=== PATIENT | female | born 1945 | race Caucasian/White ===

== ENCOUNTER → 2017-06-27 | Outpatient (CLI) | payer MEDICARE, OTHER ==
[~2017-06-27] VITALS: Ht 165.1 cm; Wt 68.5 kg
[~2017-06-27] MED LIST: AMIT150T3 PO; CATHETER FLUSH 10 ML SYR IV PRN; HCTZ12.5T PO; MTP50T PO; OLME40TA14 PO; PANT40TA PO; REGADENOSON 0.4 MG/5 ML SYR (LEXISCAN) IV ONE; SCR1T1 PO; SIMV20TA3 PO; aciphex PO; aspirin; crestor; diovan; lexapro; prednisone
[2017-06-27 09:13] VITALS: BP 142/69
[2017-06-27 09:17] VITALS: BP 134/68
--- NOTE | 2017-06-27 22:19 | STRESS TEST ---
DATE OF SERVICE: 06/27/2017 LEXISCAN MYOVIEW STRESS TEST REPORT REFERRING PHYSICIAN: Jonathan Clarke DO Baseline heart rate is 66. Baseline blood pressure 141/79. Baseline EKG is sinus rhythm with nonspecific changes. In summary, the patient was injected with 10.7 mCi of technetium-99 Myoview and the resting images were obtained. Then, the patient received 0.4 mg of Lexiscan followed by 31.9 mCi of technetium-99 Myoview. Throughout the test, there were no EKG changes. The resting and stress images were reviewed and compared in the short axis, horizontal long axis, and vertical long axis views. Review of the images showed mild decreased uptake at the mid to apical inferior wall and inferolateral wall with mild reversibility. SSS is 6. SDS 6. TID value 1.07. On the gated images, the left ventricle appeared to be in normal size with normal contractility. Calculated ejection fraction 78%. CONCLUSION: 1. The patient tolerated Lexiscan well. 2. Mild ischemia involving the mid to apical inferior wall and inferolateral wall. 3. Normal left ventricular size with normal contractility. Calculated ejection fraction of 78%. Job ID: [id number] DocumentID: [id number] Dictated Date: 06/27/2017 15:35:25 Dance Hall Host/Hostess Date: 06/27/2017 22:19:13 Dictated By: ANA MARIA LI MD
== END ==
LOC: CARD 07:58
PROVIDERS: ATTEND Internal Medicine Cardiovascular Disease
DX: I25.10 Atherosclerotic heart disease of native coronary artery without angina pectoris (principal); I10 Essential (primary) hypertension; I44.4 Left anterior fascicular block; E78.2 Mixed hyperlipidemia
CPT/HCPCS: 78452; 93017

== ENCOUNTER 2017-09-04 00:04 | Emergency (ER) | payer MEDICARE, OTHER ==
[~2017-09-04] VITALS: Ht 157.5 cm; Wt 67.6 kg
[~2017-09-04 00:04] MED LIST changes: -CATHETER FLUSH 10 ML SYR IV PRN; -REGADENOSON 0.4 MG/5 ML SYR (LEXISCAN) IV ONE
[2017-09-04] MEDS ORDERED: fentaNYL INJECTION 100 MCG/2 ML AMP IVP STA ×2 (00:27→02:09)
[2017-09-04] MEDS ORDERED: NS IV 500 ML 500 ML IV ONE (00:27)
[2017-09-04] MEDS ORDERED: fentaNYL INJECTION 100 MCG/2 ML AMP ONE (00:28)
[2017-09-04] MEDS ORDERED: NS IV 500 ML 500 ML ONE (00:28)
[2017-09-04] MEDS ORDERED: TETANUS,DIPTH,PERTUSS P/F (BOOSTRIX) 0.5 ML VIAL IM ONE (00:33)
--- NOTE | 2017-09-04 00:35 | ED Fall/Injury ---
General Chief Complaint: Trauma-Non Activation Stated Complaint: BACK & SIDE PAIN-FALL Source: patient Exam Limitations: no limitations History of Present Illness Date Seen by Provider: Sep 04, 2017 Time Seen by Provider: 00:18 Initial Comments Here with report of fall at home tonight. Apparently fell out of bed and hit her nightstand on her back on the right side. She noted a large hematoma. Occurred approximately an hour ago. Her son-in-law is able to get her up but she is having pain on the right side of her back and she was concerned about that. Denies hitting her head or loss of consciousness. Denies other injury except for abrasion to the right forearm. Tetanus is not up-to-date Occurred: this morning Severity: moderate Injuries/Pain Location: upper extremity, back Context: lost balance Loss of Consciousness: no loss of consciousness Associated Symptoms (Fall): No Abdominal Pain, No Chest Pain, No Confusion, No Headache, No Nausea/Vomiting, No Neck Pain, No Shortness of Air; Other (pain worse with deep breathing) Allergies and Home Medications Allergies Coded Allergies: codeine (Verified Allergy, Unknown, 09/04/17) Home Medications Hydrochlorothiazide 12.5 Mg Cap, 12.5 MG PO DAILY, (Reported) Metoprolol Tartrate 50 Mg Tablet, 1 EACH PO DAILY, (Reported) Olmesartan Medoxomil 40 Mg Tablet, 40 MG PO DAILY, (Reported) Pantoprazole Sodium 40 Mg Tablet.dr, 40 MG PO DAILY, (Reported) Simvastatin 20 Mg Tablet, 20 MG PO HS, (Reported) Sucralfate 1 Gm Tab, 1 GM PO QID, (Reported) [aciphex] , 20 MG PO DAILY, (Reported) Patient Home Medication List Home Medication List Reviewed: Yes Review of Systems Constitutional: see HPI; No chills, No fever Eyes: No Symptoms Reported Ears, Nose, Mouth, Throat: no symptoms reported Respiratory: see HPI; No cough Cardiovascular: see HPI; No palpitations, No syncope Gastrointestinal: No abdominal pain, No nausea, No vomiting Genitourinary: no symptoms reported Musculoskeletal: see HPI, back pain, muscle pain, muscle stiffness Skin: change in color, lesions All Other Systems Reviewed Negative Unless Noted: Yes Past Gzdfmkc-Gwuofi-Loulvz Hx Past Med/Social Hx: Reviewed Nursing Past Med/Soc Hx Patient Social History Alcohol Use: Denies Use Recreational Drug Use: No Recent Foreign Travel: No Contact w/Someone Who Travel: No Recent Hopitalizations: Yes (BACK SX) Physical Abuse: No Sexual Abuse: No Immunizations Up To Date Date of Influenza Vaccine: Nov 27, 2011 Past Medical History Surgeries: Yes (CARPAL TUNNEL, BACK) Hysterectomy, Tonsillectomy Respiratory: No Cardiac: Yes Hypertension Neurological: Yes Reproductive Disorders: No Gastrointestinal: Yes (ULCERS) Gastroesophageal Reflux Musculoskeletal: No Endocrine: No Psychosocial: No Nursing Suicide Risk Score: 0 Blood Disorders: No Family Medical History Reviewed Nursing Family Hx No Pertinent Family Hx Physical Exam Vital Signs Vital Signs - First Documented Capillary Refill : Height, Weight, BMI Height: 5', 5.00" Weight: 151lbs 0.0oz, [id number] Method:Stated ,25.1BMI General Appearance: WD/WN, no apparent distress HEENT: PERRL/EOMI, pharynx normal Neck: supple, normal inspection Cardiovascular: regular rate, rhythm, no murmur Respiratory: lungs clear, normal breath sounds Gastrointestinal: non tender, soft Back: no vertebral tenderness, other (10 x 20 cm area of hematoma to the right side of the low back at the rib margin to the hip and just lateral to the spine to the lateral aspect of the back.) Extremities: normal range of motion, pelvis stable, other (onset tenderness to palpation of the right forearm near area of abrasion with normal range of motion ) Neurologic/Psychiatric: alert, oriented x 3 Skin: warm/dry, ecchymosis (low back on the right side and right forearm) Fidencio Coma Score Best Eye Response: (4) Open Spontaneously Best Verbal Response: (5) Oriented Best Motor Response: (6) Obeys Commands Progress/Results/Core Measures Results/Orders Lab Results Laboratory Tests Test 09/04/17 00:30 Range/Units White Blood Count 5.4 4.3-11.0 10^3/uL Red Blood Count 3.91 L 4.35-5.85 10^6/uL Hemoglobin 11.8 11.5-16.0 G/DL Hematocrit 35 35-52 % Mean Corpuscular Volume 88 80-99 FL Mean Corpuscular Hemoglobin 30 25-34 PG Mean Corpuscular Hemoglobin Concent 34 32-36 G/DL Red Cell Distribution Width 12.9 10.0-14.5 % Platelet Count 170 130-400 10^3/uL Mean Platelet Volume 10.0 7.4-10.4 FL Neutrophils (%) (Auto) 60 42-75 % Lymphocytes (%) (Auto) 27 12-44 % Monocytes (%) (Auto) 11 0-12 % Eosinophils (%) (Auto) 2 0-10 % Basophils (%) (Auto) 0 0-10 % Neutrophils # (Auto) 3.3 1.8-7.8 X 10^3 Lymphocytes # (Auto) 1.5 1.0-4.0 X 10^3 Monocytes # (Auto) 0.6 0.0-1.0 X 10^3 Eosinophils # (Auto) 0.1 0.0-0.3 10^3/uL Basophils # (Auto) 0.0 0.0-0.1 10^3/uL Sodium Level 141 135-145 MMOL/L Potassium Level 3.6 3.6-5.0 MMOL/L Chloride Level 105 98-107 MMOL/L Carbon Dioxide Level 25 21-32 MMOL/L Anion Gap 11 5-14 MMOL/L Blood Urea Nitrogen 22 H 7-18 MG/DL Creatinine 1.01 0.60-1.30 MG/DL Estimat Glomerular Filtration Rate 54 BUN/Creatinine Ratio 22 Glucose Level 114 H 70-105 MG/DL Calcium Level 9.5 8.5-10.1 MG/DL Total Bilirubin 1.1 H 0.1-1.0 MG/DL Aspartate Amino Transf (AST/SGOT) 23 5-34 U/L Alanine Aminotransferase (ALT/SGPT) 12 0-55 U/L Alkaline Phosphatase 60 40-136 U/L Total Protein 7.4 6.4-8.2 GM/DL Albumin 4.5 3.2-4.5 GM/DL My Orders Orders - GUANACO KESSLER MD Cbc With Automated Diff (09/04/17 00:27) Comprehensive Metabolic Panel (09/04/17 00:27) Saline Lock/Iv-Start (09/04/17:27) Ns Iv 500 Ml (Sodium Chloride 0.9%) (09/04/17 00:27) Fentanyl Injection (Sublimaze Injection (09/04/17 00:27) Fentanyl Injection (Sublimaze Injection (09/04/17 00:28) Ns Iv 500 Ml (Sodium Chloride 0.9%) (7/10/18 00:28) Dipht,Pertuss(Acell),Tet Adult (Boostrix (09/04/17 00:33) Ct Abdomen/Pelvis W (09/04/17 01:03) Iohexol Injection (Omnipaque 350 Mg/Ml 1 (09/04/17 01:45) Ns (Ivpb) (Sodium Chloride 0.9%) (09/04/17 01:45) Fentanyl Injection (Sublimaze Injection (09/04/17 02:09) Ketorolac Injection (Toradol Injection) (09/04/17 02:09) Ondansetron Injection (Zofran Injectio (09/04/17 02:15) Medications Given in ED Current Medications Medications Dose Ordered Sig/Piter Route Start Time Stop Time Status Last Admin Dose Admin Iohexol 100 ml ONCE ONCE IV 09/04/17 01:45 09/04/17 01:46 DC 09/04/17 01:55 100 ML Ondansetron HCl 4 mg ONCE ONCE IVP 09/04/17 02:15 09/04/17 02:16 DC 09/04/17 02:14 4 MG Sodium Chloride 250 ml ONCE ONCE IV 09/04/17 01:45 09/04/17 01:46 DC 09/04/17 01:55 80 ML Sodium Chloride 500 ml @ 0 mls/hr Q0M ONCE IV 09/04/17 00:27 09/04/17 00:29 DC 09/04/17 00:34 0 MLS/HR Vital Signs/I&O 09/04/17 09/04/17 00:22 00:22 Temp 97.4 97.6 Pulse 63 96 Resp 14 16 B/P (MAP) 155/82 (106) 155/82 (106) Pulse Ox 98 98 O2 Delivery Room Air Room Air Progress Progress Note : Progress Note Seen and evaluated. IV, labs, normal saline 500 mL bolus in anticipation of CT of the abdomen and pelvis secondary to concerns of traumatic injury especially in the area of the right kidney and low ribs as well as the right flank. Tetanus updated. Fentanyl 50 g IV for pain. Monitor patient. CT abdomen pelvis ordered. Patient required repeat dosing of fentanyl 50 g IV as well as Toradol 15 mg IV and Zofran 4 mg IV. Nondisplaced rib fractures noted as below. We did have respiratory therapy evaluate and teach for incentive spirometry. Discharged home with return precautions. Patient verbalize understanding instructions and agreement with plan. Diagnostic Imaging Diagonstic Imaging: CT Plain Films/CT/US/NM/MRI: abdomen, pelvis Comments Acute nondisplaced fractures of the tips of the right 10th and 11th ribs with overlying subcutaneous contusion. Scoliosis, degenerative and postoperative changes in the lumbar spine. No acute fracture or malalignment of the spine. Departure Impression Primary Impression: Multiple fractures of ribs, right side, initial encounter for closed fracture Additional Impressions: Contusion Qualified Codes: S20.221A - Contusion of right back wall of thorax, initial encounter Abrasion Disposition: HOME, SELF-CARE Condition: Stable Departure-Patient Inst. Decision time for Depature: 02:46 Referrals: FILEMON PERALTA DO (PCP/Family) Primary Care Physician KELLY ROMAN MD Patient Instructions: Contusion (DC), Rib Fracture (DC), Skin Abrasions (DC) Add. Discharge Instructions: All discharge instructions reviewed with patient and/or family. Voiced understanding. Follow-up with Dr. Peralta or Dr. Roman for recheck and further evaluation within one week. Return for worse pain, fever, vomiting, weakness, breathing problems or other concerns as needed. Use incentive spirometer several times per hour while awake for the next week or more to help prevent pneumonia. Take home medications as previously prescribed. You may add ibuprofen 400 mg every 6 -8 hours as needed for pain. You may take Tylenol/acetaminophen 1000 mg every 8 hours as needed for pain if you're not taking her prescribed pain medicine as they both have Tylenol in it. Do not exceed 3000 mg of Tylenol/acetaminophen in a 24-hour period. Copy Copies To 1: FILEMON PERALTA DO Copies To 2: KELLY ROMAN MD, TIMOTHY D MD Sep 04, 2017 00:35
[2017-09-04 00:39] LABS: BASOPHILS % (AUTO) 0 % (0-10); EOSINOPHILS # (AUTO) 0.1 10^3/uL (0.0-0.3); EOSINOPHILS % (AUTO) 2 % (0-10); HEMATOCRIT 35 % (35-52); HEMOGLOBIN 11.8 G/DL (11.5-16.0); LYMPHOCYTES # (AUTO) 1.5 X 10^3 (1.0-4.0); LYMPHOCYTES % (AUTO) 27 % (12-44); MEAN CORPUSCULAR HEMOGLOBIN 30 PG (25-34); MEAN CORPUSCULAR HGB CONC 34 G/DL (32-36); MEAN CORPUSCULAR VOLUME 88 FL (80-99); MONOCYTES # (AUTO) 0.6 X 10^3 (0.0-1.0); MONOCYTES % (AUTO) 11 % (0-12); NEUTROPHILS # (AUTO) 3.3 X 10^3 (1.8-7.8); NEUTROPHILS % (AUTO) 60 % (42-75); PLATELET COUNT 170 10^3/uL (130-400); RED BLOOD COUNT 3.91 10^6/uL (4.35-5.85); RED CELL DISTRIBUTION WIDTH 12.9 % (10.0-14.5); WHITE BLOOD COUNT 5.4 10^3/uL (4.3-11.0)
[2017-09-04 00:58] LABS: ALBUMIN 4.5 GM/DL (3.2-4.5); BILIRUBIN,TOTAL 1.1 MG/DL (0.1-1.0); CALCIUM 9.5 MG/DL (8.5-10.1); CREATININE SERUM 1.01 MG/DL (0.60-1.30); POTASSIUM 3.6 MMOL/L (3.6-5.0); TOTAL PROTEIN 7.4 GM/DL (6.4-8.2)
[2017-09-04] MEDS ORDERED: IOHEXOL 350 MG/ML 100 ML (OMNIPAQUE 350) VIAL IV ONE (01:45)
[2017-09-04] MEDS ORDERED: NS 250 ML (IVPB) BAG IV ONE (01:45)
[2017-09-04] MEDS ORDERED: KETOROLAC 30 MG/ML VIAL IVP STA (02:09)
[2017-09-04] MEDS ORDERED: ONDANSETRON 4 MG/2 ML (SDV) Z0FRAN IVP ONE (02:15)
[2017-09-04 03:00] VITALS: BP 155/82
--- NOTE | 2017-09-04 07:50 | Diagnostic Imaging Report ---
PROCEDURE: CT abdomen and pelvis with contrast. TECHNIQUE: Multiple contiguous axial images were obtained through the abdomen and pelvis after administration of intravenous contrast. INDICATION: Fall, right-sided pain. COMPARISON: 02/26/2016. FINDINGS: The lung bases were clear. Fractures posterolaterally of the right 10th, 11lth, and 12th ribs posterolaterally appeared acute. No basilar hemothorax or pneumothorax. The partially visualized left lower ribs intact. There is leftward convexity thoracolumbar scoliosis. Sagittal reconstruction views revealed no substantial stature loss. No evidence for hepatosplenic laceration. The low-density nodule in the liver anteriorly is decreased in size from the previous of 2015. It is 9 mm and was previously measuring 21 mm presumed reduction in cyst. The adrenals are negative. There is a small hiatal hernia. The pancreas intact. There is no hemoperitoneum. There is no free air. There is no mesenteric or bowel wall hematoma. No adenopathy or mass. Bony pelvis degenerated but nonacute. There are degenerative and postoperative changes to the scoliotic lumbar spine. IMPRESSION: Fractures of the right 10th, 11th and 12th ribs nondisplaced. No findings of basilar pulmonary parenchymal or pleural injury. No hemoperitoneum or findings of solid/hollow visceral injury. Degenerative and scoliotic thoracolumbar spine with postsurgical changes as described. Dictated by: Dictated on workstation # [id number]
== END 2017-09-04 03:00 ==
LOC: EDUNIT# 00:04 → ER 00:06
DX: S22.41XA Multiple fractures of ribs, right side, initial encounter for closed fracture (principal); S20.221A Contusion of right back wall of thorax, initial encounter; I10 Essential (primary) hypertension; K21.9 Gastro-esophageal reflux disease without esophagitis; Z88.5 Allergy status to narcotic agent; Z90.710 Acquired absence of both cervix and uterus; Z90.89 Acquired absence of other organs; W06.XXXA Fall from bed, initial encounter; Y92.009 Unspecified place in unspecified non-institutional (private) residence as the place of occurrence of the external cause
CPT/HCPCS: 36415; 74177; 80053; 85025; 94664; 96374; 96375; 96376

== ENCOUNTER → 2017-10-30 | Outpatient (CLI) | payer MEDICARE, OTHER ==
[2017-10-30 15:11] LABS: ALBUMIN 4.4 GM/DL (3.2-4.5); BILIRUBIN,TOTAL 1.3 MG/DL (0.1-1.0); CALCIUM 9.9 MG/DL (8.5-10.1); POTASSIUM 3.7 MMOL/L (3.6-5.0); TOTAL PROTEIN 7.1 GM/DL (6.4-8.2)
--- NOTE | 2017-10-30 17:42 | Diagnostic Imaging Report ---
PROCEDURE: CT abdomen and pelvis with contrast. TECHNIQUE: Multiple contiguous axial images were obtained through the abdomen and pelvis after administration of intravenous contrast. INDICATION: Pelvic pain and right lower quadrant pain for 3 weeks. Comparison is made with prior CT from 09/04/2017. FINDINGS: Imaging through the lung bases does show some atelectasis in the right middle lobe. Right lower posterior rib fractures are again noted and demonstrate moderate callus formation since prior CT consistent with healing. Low-density lesion in anterior right lobe of the liver appears stable. The gallbladder is unremarkable. No biliary ductal dilatation is seen. The pancreas and spleen are unremarkable. No adrenal mass is detected. Kidneys are unremarkable. Aorta is heavily calcified but nonaneurysmal. The small and large bowel loops are normal caliber. No obstruction is seen. There is no ascites. No abdominal or pelvic lymphadenopathy is seen. Note is made of a moderate-sized hiatal hernia. The bladder is unremarkable. Bony structures demonstrate left convexity scoliotic curvature and spondylosis with postsurgical changes of posterior instrumented fusion in the lower lumbosacral spine. IMPRESSION: 1. Hiatal hernia. 2. Hepatic low density suggestive of a cyst. 3. No acute feature in the abdomen or pelvis is identified. Dictated by: Dictated on workstation # [id number]
== END ==
LOC: RAD 14:32
PROVIDERS: ATTEND Family Medicine
DX: K44.9 Diaphragmatic hernia without obstruction or gangrene (principal); K76.89 Other specified diseases of liver; N28.9 Disorder of kidney and ureter, unspecified
CPT/HCPCS: 36415; 74177; 80053

== ENCOUNTER 2018-01-23 10:45 | Inpatient (IN) | payer MEDICARE, OTHER ==
[~2018-01-23] VITALS: Ht 157.5 cm; Wt 71.0 kg
--- OUTSIDE RECORDS SUMMARY | 2018-01-23 10:51 | XMS REPORT | Continuity of Care Document ---
Author Author [facility] Organization [facility] Address Unknown Phone Unavailable Allergies Active Description Code Type Severity Reaction Onset Reported/Identified Relationship to Patient Clinical Status Yes codeine [id number] Drug Allergy Unknown N/A 09/04/2017 Medications There is no data. Problems Date Dx Coded Attending Type Code Diagnosis Diagnosed By 02/02/2012 Ot 211.1 02/02/2012 Ot 530.11 02/02/2012 Ot 535.40 02/02/2012 Ot 553.3 04/08/2014 Ot V76.12 04/08/2014 Ot 719.41 04/08/2014 Ot 733.00 04/08/2014 Ot V76.12 04/08/2014 Ot 571.8 04/08/2014 Ot 786.50 04/08/2014 Ot 789.00 04/08/2014 Ot V72.84 06/17/2015 GELANITADER DOFILEMON Ot M54.5 LOW BACK PAIN 06/21/2015 GELLENDER DOFILEMON Ot M25.552 PAIN IN LEFT HIP 06/21/2015 GELLENDER DOFILEMON Ot M54.9 DORSALGIA, UNSPECIFIED 07/01/2015 GELLENDER DOFILEMON Ot N19 UNSPECIFIED KIDNEY FAILURE 07/01/2015 GELLENDER DOFILEMON Ot M54.5 LOW BACK PAIN 07/05/2015 GELLENDER DOFILEMON Ot M54.9 DORSALGIA, UNSPECIFIED 07/05/2015 GELLENDER DOFILEMON Ot N28.9 DISORDER OF KIDNEY AND URETER, UNSPECIFI 07/06/2015 GELLENDER DOFILEMON Ot M54.9 DORSALGIA, UNSPECIFIED 07/06/2015 GELLENDER DOFILEMON Ot N28.9 DISORDER OF KIDNEY AND URETER, UNSPECIFI 07/06/2015 GELLENDER DOFILEMON Ot K56.69 OTHER INTESTINAL OBSTRUCTION 07/07/2015 GELLENDER DOFILEMON Ot K56.69 OTHER INTESTINAL OBSTRUCTION 07/08/2015 GELLENDER DO, FILEMON Johnson Ot M25.552 PAIN IN LEFT HIP 07/08/2015 GELLENDER DO, FILEMON Johnson Ot M54.9 DORSALGIA, UNSPECIFIED 07/15/2015 GELLENDER DO, FILEMON Alex Ot M25.552 PAIN IN LEFT HIP 07/15/2015 GELLENDER DO, FILEMON Alex Ot M54.9 DORSALGIA, UNSPECIFIED 07/20/2015 GELLENDER DO, FILEMON Johnson Ot M54.9 DORSALGIA, UNSPECIFIED 07/20/2015 GELLENDER DO, FILEMON Johnson Ot N28.9 DISORDER OF KIDNEY AND URETER, UNSPECIFI 07/22/2015 GELLENDER DO, FILEMON Johnson Ot M54.5 LOW BACK PAIN 07/23/2015 GELLENDER DO, FILEMON Johnson Ot M54.9 DORSALGIA, UNSPECIFIED 07/23/2015 GELLENDER DO, FILEMON Johnson Ot N28.9 DISORDER OF KIDNEY AND URETER, UNSPECIFI 08/02/2015 GELLENDER DO, FILEMON Johnson Ot K56.69 OTHER INTESTINAL OBSTRUCTION 08/04/2015 GELLENDER DO, FILEMON Johnson Ot K56.69 OTHER INTESTINAL OBSTRUCTION 08/09/2015 GELLENDER DO, FILEMON Johnson Ot M54.42 LUMBAGO WITH SCIATICA, LEFT SIDE 08/11/2015 GELLENDER DO, FILEMON Johnson Ot 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, LUMBAR REGIO 08/11/2015 GELLENDER DO, FILEMON Johnson Ot M43.16 SPONDYLOLISTHESIS, LUMBAR REGION 08/11/2015 GELLENDER DO, FILEMON Johnson Ot M51.16 INTERVERTEBRAL DISC DISORDERS W RADICULO 09/01/2015 GELLENDER DO, FILEMON Johnson Ot 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, LUMBAR REGIO 09/01/2015 GELLENDER DO, FILEMON Johnson Ot M43.16 SPONDYLOLISTHESIS, LUMBAR REGION 09/01/2015 GELLENDER DO, FILEMON Johnson Ot M51.16 INTERVERTEBRAL DISC DISORDERS W RADICULO 09/02/2015 GELLENDER DO, FILEMON Johnson Ot 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, LUMBAR REGIO 09/02/2015 GELLENDER DO, FILEMON Johnson Ot M43.16 SPONDYLOLISTHESIS, LUMBAR REGION 09/02/2015 GELLENDER DO, FILEMON Johnson Ot M51.16 INTERVERTEBRAL DISC DISORDERS W RADICULO 12/27/2015 GELLENDER DO, FILEMON Johnson Ot M54.5 LOW BACK PAIN 12/27/2015 FILEMON PERALTA DO Ot M25.552 PAIN IN LEFT HIP 12/27/2015 KATHRYN DUFF FILEMON Johnson Ot M54.9 DORSALGIA, UNSPECIFIED 12/27/2015 KATHRYN DUFF FILEMON Johnson Ot M54.9 DORSALGIA, UNSPECIFIED 12/27/2015 FILEMON PERALTA DO Ot N28.9 DISORDER OF KIDNEY AND URETER, UNSPECIFI 12/27/2015 KATHRYN DUFF FILEMON Alex Ot K56.69 OTHER INTESTINAL OBSTRUCTION 12/27/2015 KATHRYN DUFF FILEMON Alex Ot 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, LUMBAR REGIO 12/27/2015 KATHRYN DUFFFILEMON Ot M43.16 SPONDYLOLISTHESIS, LUMBAR REGION 12/27/2015 KATHRYN DUFFFILEMON Ot M51.16 INTERVERTEBRAL DISC DISORDERS W RADICULO 12/28/2015 ANA MARIA LI MD Ot E78.2 MIXED HYPERLIPIDEMIA 12/28/2015 ANA MARIA LI MD Ot I10 ESSENTIAL (PRIMARY) HYPERTENSION 12/28/2015 ANA MARIA LI MD Ot I25.10 ATHSCL HEART DISEASE OF [place] CORONARY 12/28/2015 ANA MARIA LI MD Ot I44.4 LEFT ANTERIOR FASCICULAR BLOCK 12/31/2015 ANA MARIA LI MD Ot E78.2 MIXED HYPERLIPIDEMIA 12/31/2015 ANA MARIA LI MD Ot I10 ESSENTIAL (PRIMARY) HYPERTENSION 12/31/2015 ANA MARIA LI MD Ot I25.10 ATHSCL HEART DISEASE OF [place] CORONARY 12/31/2015 ANA MARIA LI MD Ot I44.4 LEFT ANTERIOR FASCICULAR BLOCK 01/18/2016 ANA MARIA LI MD Ot E78.2 MIXED HYPERLIPIDEMIA 01/18/2016 ANA MARIA LI MD Ot I10 ESSENTIAL (PRIMARY) HYPERTENSION 01/18/2016 ANA MARIA LI MD Ot I25.10 ATHSCL HEART DISEASE OF [place] CORONARY 01/18/2016 ANA MARIA LI MD Ot I44.4 LEFT ANTERIOR FASCICULAR BLOCK 01/24/2016 ANA MARIA LI MD Ot E78.2 MIXED HYPERLIPIDEMIA 01/24/2016 ANA MARIA LI MD Ot I10 ESSENTIAL (PRIMARY) HYPERTENSION 01/24/2016 ANA MARIA LI MD Ot I25.10 ATHSCL HEART DISEASE OF [place] CORONARY 01/24/2016 ANA MARIA LI MD Ot I44.4 LEFT ANTERIOR FASCICULAR BLOCK 02/26/2016 YOUSUF LOPEZ APRN Ot I10 ESSENTIAL (PRIMARY) HYPERTENSION 02/26/2016 YOUSUF LOPEZ APRN Ot N93.9 ABNORMAL UTERINE AND VAGINAL BLEEDING, U 02/26/2016 YOUSUF LOPEZ APRN Ot Z79.899 OTHER SENIOR CARE (CURRENT) DRUG THERAPY 02/26/2016 YOUSUF LOPEZ DIRECTOR OF [employer]ELOPMENT Ot Z90.710 ACQUIRED ABSENCE OF BOTH CERVIX AND UTER 02/29/2016 YOUSUF LOPEZ DIRECTOR OF [employer] DEVELOPMENT Ot I10 ESSENTIAL (PRIMARY) HYPERTENSION 02/29/2016 YOUSUF LOPEZ APRN Ot N93.9 ABNORMAL UTERINE AND VAGINAL BLEEDING, U 02/29/2016 YOUSUF LOPEZ APRN Ot Z79.899 OTHER AROMATHERAPIST (CURRENT) DRUG THERAPY 02/29/2016 YOUSUF LOPEZ APRN Ot Z90.710 ACQUIRED ABSENCE OF BOTH CERVIX AND UTER 06/18/2017 GELLENDER DO, FILEMON Johnson Ot M54.5 LOW BACK PAIN 06/18/2017 KATHRYN DOFILEMON Ot M25.552 PAIN IN LEFT HIP 06/18/2017 KATHRYN DOFILEMON Ot M54.9 DORSALGIA, UNSPECIFIED 06/18/2017 GELLENDER DOFILEMON Ot M54.9 DORSALGIA, UNSPECIFIED 06/18/2017 GELLENDER DOFILEMON Ot N28.9 DISORDER OF KIDNEY AND URETER, UNSPECIFI 06/18/2017 GELFILEMON PAT DO Ot K56.69 OTHER INTESTINAL OBSTRUCTION 06/18/2017 GELLENDER DOFILEMON Ot 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, LUMBAR REGIO 06/18/2017 YADYLENDER FILEMON DUFF Ot M43.16 SPONDYLOLISTHESIS, LUMBAR REGION 06/18/2017 YADYLENFILEMON REED DO Ot M51.16 INTERVERTEBRAL DISC DISORDERS W RADICULO 06/18/2017 ANA MARIA LI MD Ot E78.2 MIXED HYPERLIPIDEMIA 06/18/2017 ANA MARIA LI MD Ot I10 ESSENTIAL (PRIMARY) HYPERTENSION 06/18/2017 ANA MARIA LI MD Ot I25.10 ATHSCL HEART DISEASE OF [place] CORONARY 06/18/2017 ANA MARIA LI MD Ot I44.4 LEFT ANTERIOR FASCICULAR BLOCK 06/28/2017 ANA MARIA LI MD Ot E78.2 MIXED HYPERLIPIDEMIA 06/28/2017 ANA MARIA LI MD Ot I10 ESSENTIAL (PRIMARY) HYPERTENSION 06/28/2017 ANA MARIA LI MD Ot I25.10 ATHSCL HEART DISEASE OF [place] CORONARY 06/28/2017 ANA MARIA LI MD Ot I44.4 LEFT ANTERIOR FASCICULAR BLOCK 07/17/2017 ANA MARIA LI MD Ot E78.2 MIXED HYPERLIPIDEMIA 07/17/2017 ANA MARIA LI MD Ot I10 ESSENTIAL (PRIMARY) HYPERTENSION 07/17/2017 ANA MARIA LI MD Ot I25.10 ATHSCL HEART DISEASE OF [place] CORONARY 07/17/2017 ANA MARIA LI MD Ot I44.4 LEFT ANTERIOR FASCICULAR BLOCK 07/20/2017 ANA MARIA LI MD Ot E78.2 MIXED HYPERLIPIDEMIA 07/20/2017 ANA MARIA LI MD Ot I10 ESSENTIAL (PRIMARY) HYPERTENSION 07/20/2017 ANA MARIA LI MD Ot I25.10 ATHSCL HEART DISEASE OF [place] CORONARY 07/20/2017 ANA MARIA LI MD Ot I44.4 LEFT ANTERIOR FASCICULAR BLOCK 09/06/2017 GUANACO KESSLER MD Ot I10 ESSENTIAL (PRIMARY) HYPERTENSION 09/06/2017 GUANACO KESSLER MD Ot K21.9 GASTRO-ESOPHAGEAL REFLUX DISEASE WITHOUT 09/06/2017 GUANACO KESSLER MD Ot S20.221A CONTUSION OF RIGHT BACK WALL OF THORAX, 09/06/2017 GUANACO KESSLER MD Ot S22.41XA MULTIPLE FRACTURES OF RIBS, RIGHT SIDE, 09/06/2017 GUANACO KESSLER MD Ot W06.XXXA FALL FROM BED, INITIAL ENCOUNTER 09/06/2017 GUANACO KESSLER MD Ot Y92.[address] IN [facility] NON-INSTITUT (PRIVATE 09/06/2017 GUANACO KESSLER MD Ot Z88.5 ALLERGY STATUS TO NARCOTIC AGENT STATUS 09/06/2017 GUANACO KESSLER MD Ot Z90.710 ACQUIRED ABSENCE OF BOTH CERVIX AND UTER 09/06/2017 GUANACO KESSLER MD, Ot Z90.89 ACQUIRED ABSENCE OF OTHER ORGANS 09/20/2017 GUANACO KESSLER MD, Ot I10 ESSENTIAL (PRIMARY) HYPERTENSION 09/20/2017 GUANACO KESSLER MD, Ot K21.9 GASTRO-ESOPHAGEAL REFLUX DISEASE WITHOUT 09/20/2017 GUANACO KESSLER MD, Ot S20.221A CONTUSION OF RIGHT BACK WALL OF THORAX, 09/20/2017 GUANACO KESSLER MD, Ot S22.41XA MULTIPLE FRACTURES OF RIBS, RIGHT SIDE, 09/20/2017 GUANACO KESSLER MD, Ot W06.XXXA FALL FROM BED, INITIAL ENCOUNTER 09/20/2017 GUANACO KESSLER MD, Ot Y92.[address] [facility] [address] [facility] (PRIVATE 09/20/2017 GUANACO KESSLER MD, Ot Z88.5 ALLERGY STATUS TO NARCOTIC AGENT STATUS 09/20/2017 GUANACO KESSLER MD, Ot Z90.710 ACQUIRED ABSENCE OF BOTH CERVIX AND UTER 09/20/2017 GUANACO KESSLER MD, Ot Z90.89 ACQUIRED ABSENCE OF OTHER ORGANS 10/31/2017 GELLENDER DO, FILEMON Johnson Ot K44.9 DIAPHRAGMATIC HERNIA WITHOUT OBSTRUCTION 10/31/2017 GELLENDER DO, FILEMON Johnson Ot K76.89 OTHER SPECIFIED DISEASES OF LIVER 10/31/2017 GELLENDER DO, FILEMON Johnson Ot N28.9 DISORDER OF KIDNEY AND URETER, UNSPECIFI 11/23/2017 GELLENDER DO, FILEMON Johnson Ot K44.9 DIAPHRAGMATIC HERNIA WITHOUT OBSTRUCTION 11/23/2017 GELLENDER DO, FILEMON Johnson Ot K76.89 OTHER SPECIFIED DISEASES OF LIVER 11/23/2017 GELLENDER DO, FILEMON Alex Ot N28.9 DISORDER OF KIDNEY AND URETER, UNSPECIFI 11/23/2017 GELLENDER DO, FILEMON Alex Ot K44.9 DIAPHRAGMATIC HERNIA WITHOUT OBSTRUCTION 11/23/2017 GELLENDER DO, FILEMON Johnson Ot K76.89 OTHER SPECIFIED DISEASES OF LIVER 11/23/2017 GELLENDER DO, FILEMON A Ot N28.9 DISORDER OF KIDNEY AND URETER, UNSPECIFI Procedures There is no data. Results Test Result Range Complete blood count (CBC) with automated white blood cell (WBC) differential - 02/26/16 15:50 Blood leukocytes automated count (number/volume) 5.2 10*3/uL 4.3-11.0 Blood erythrocytes automated count (number/volume) 3.93 10*6/uL 4.35-5.85 Venous blood hemoglobin measurement (mass/volume) 11.7 g/dL 11.5-16.0 Blood hematocrit (volume fraction) 35 % 35-52 Automated erythrocyte mean corpuscular volume 90 [foz_us] 80-99 Automated erythrocyte mean corpuscular hemoglobin (mass per erythrocyte) 30 pg 25-34 Automated erythrocyte mean corpuscular hemoglobin concentration measurement ( mass/volume) 33 g/dL 32-36 Automated erythrocyte distribution width ratio 12.7 % 10.0-14.5 Automated blood platelet count (count/volume) 205 10*3/uL 130-400 Automated blood platelet mean volume measurement 10.2 [foz_us] 7.4-10.4 Automated blood neutrophils/100 leukocytes 60 % 42-75 Automated blood lymphocytes/100 leukocytes 26 % 12-44 Blood monocytes/100 leukocytes 11 % 0-12 Automated blood eosinophils/100 leukocytes 3 % 0-10 Automated blood basophils/100 leukocytes 0 % 0-10 Blood neutrophils automated count (number/volume) 3.1 10*3 1.8-7.8 Blood lymphocytes automated count (number/volume) 1.3 10*3 1.0-4.0 Blood monocytes automated count (number/volume) 0.6 10*3 0.0-1.0 Automated eosinophil count 0.2 10*3/uL 0.0-0.3 Automated blood basophil count (count/volume) 0.0 10*3/uL 0.0-0.1 Whole blood basic metabolic panel - 02/26/16 15:50 Serum or plasma sodium measurement (moles/volume) 139 mmol/L 135-145 Serum or plasma potassium measurement (moles/volume) 3.6 mmol/L 3.6-5.0 Serum or plasma chloride measurement (moles/volume) 102 mmol/L 98-107 Carbon dioxide 24 mmol/L 21-32 Serum or plasma anion gap determination (moles/volume) 13 mmol/L 5-14 Serum or plasma urea nitrogen measurement (mass/volume) 14 mg/dL 7-18 Serum or plasma creatinine measurement (mass/volume) 0.78 mg/dL 0.60-1.30 Serum or plasma urea nitrogen/creatinine mass ratio 18 NRG Serum or plasma creatinine measurement with calculation of estimated glomerular filtration rate > NRG Serum or plasma glucose measurement (mass/volume) 129 mg/dL 70-105 Serum or plasma calcium measurement (mass/volume) 9.5 mg/dL 8.5-10.1 Complete urinalysis with reflex to culture - 02/26/16 16:00 Urine color determination YELLOW NRG Urine clarity determination CLEAR NRG Urine pH measurement by test strip 6.5 5-9 Specific gravity of urine by test strip 1.010 1.016- 1.022 Urine protein assay by test strip, semi-quantitative NEGATIVE NEGATIVE Urine glucose detection by automated test strip NEGATIVE NEGATIVE Erythrocytes detection in urine sediment by light microscopy 1+ NEGATIVE Urine ketones detection by automated test strip NEGATIVE NEGATIVE Urine nitrite detection by test strip NEGATIVE NEGATIVE Urine total bilirubin detection by test strip NEGATIVE NEGATIVE Urine urobilinogen measurement by automated test strip (mass/volume) NORMAL NORMAL Urine leukocyte esterase detection by dipstick NEGATIVE NEGATIVE Automated urine sediment erythrocyte count by microscopy (number/high power field) NONE NRG Automated urine sediment leukocyte count by microscopy (number/high power field ) RARE NRG Bacteria detection in urine sediment by light microscopy NEGATIVE NRG Squamous epithelial cells detection in urine sediment by light microscopy 0-2 NRG Crystals detection in urine sediment by light microscopy NONE NRG Casts detection in urine sediment by light microscopy NONE NRG Mucus detection in urine sediment by light microscopy NEGATIVE NRG Complete urinalysis with reflex to culture NO NRG Complete blood count (CBC) with automated white blood cell (WBC) differential - 09/04/17 00:30 Blood leukocytes automated count (number/volume) 5.4 10*3/uL 4.3-11.0 Blood erythrocytes automated count (number/volume) 3.91 10*6/uL 4.35-5.85 Venous blood hemoglobin measurement (mass/volume) 11.8 g/dL 11.5-16.0 Blood hematocrit (volume fraction) 35 % 35-52 Automated erythrocyte mean corpuscular volume 88 [foz_us] 80-99 Automated erythrocyte mean corpuscular hemoglobin (mass per erythrocyte) 30 pg 25-34 Automated erythrocyte mean corpuscular hemoglobin concentration measurement ( mass/volume) 34 g/dL 32-36 Automated erythrocyte distribution width ratio 12.9 % 10.0-14.5 Automated blood platelet count (count/volume) 170 10*3/uL 130-400 Automated blood platelet mean volume measurement 10.0 [foz_us] 7.4-10.4 Automated blood neutrophils/100 leukocytes 60 % 42-75 Automated blood lymphocytes/100 leukocytes 27 % 12-44 Blood monocytes/100 leukocytes 11 % 0-12 Automated blood eosinophils/100 leukocytes 2 % 0-10 Automated blood basophils/100 leukocytes 0 % 0-10 Blood neutrophils automated count (number/volume) 3.3 10*3 1.8-7.8 Blood lymphocytes automated count (number/volume) 1.5 10*3 1.0-4.0 Blood monocytes automated count (number/volume) 0.6 10*3 0.0-1.0 Automated eosinophil count 0.1 10*3/uL 0.0-0.3 Automated blood basophil count (count/volume) 0.0 10*3/uL 0.0-0.1 Comprehensive metabolic panel - 09/04/17 00:30 Serum or plasma sodium measurement (moles/volume) 141 mmol/L 135-145 Serum or plasma potassium measurement (moles/volume) 3.6 mmol/L 3.6-5.0 Serum or plasma chloride measurement (moles/volume) 105 mmol/L 98-107 Carbon dioxide 25 mmol/L 21-32 Serum or plasma anion gap determination (moles/volume) 11 mmol/L 5-14 Serum or plasma urea nitrogen measurement (mass/volume) 22 mg/dL 7-18 Serum or plasma creatinine measurement (mass/volume) 1.01 mg/dL 0.60-1.30 Serum or plasma urea nitrogen/creatinine mass ratio 22 NRG Serum or plasma creatinine measurement with calculation of estimated glomerular filtration rate 54 NRG Serum or plasma glucose measurement (mass/volume) 114 mg/dL 70-105 Serum or plasma calcium measurement (mass/volume) 9.5 mg/dL 8.5-10.1 Serum or plasma total bilirubin measurement (mass/volume) 1.1 mg/dL 0.1-1.0 Serum or plasma alkaline phosphatase measurement (enzymatic activity/volume) 60 U/L 40-136 Serum or plasma aspartate aminotransferase measurement (enzymatic activity/ volume) 23 U/L 5-34 Serum or plasma alanine aminotransferase measurement (enzymatic activity/volume ) 12 U/L 0-55 Serum or plasma protein measurement (mass/volume) 7.4 g/dL 6.4-8.2 Serum or plasma albumin measurement (mass/volume) 4.5 g/dL 3.2-4.5 Comprehensive metabolic panel - 10/30/17 14:45 Serum or plasma sodium measurement (moles/volume) 140 mmol/L 135-145 Serum or plasma potassium measurement (moles/volume) 3.7 mmol/L 3.6-5.0 Serum or plasma chloride measurement (moles/volume) 105 mmol/L 98-107 Carbon dioxide 21 mmol/L 21-32 Serum or plasma anion gap determination (moles/volume) 14 mmol/L 5-14 Serum or plasma urea nitrogen measurement (mass/volume) 30 mg/dL 7-18 Serum or plasma creatinine measurement (mass/volume) 1.00 mg/dL 0.60-1.30 Serum or plasma urea nitrogen/creatinine mass ratio 30 NRG Serum or plasma creatinine measurement with calculation of estimated glomerular filtration rate 54 NRG Serum or plasma glucose measurement (mass/volume) 96 mg/dL 70-105 Serum or plasma calcium measurement (mass/volume) 9.9 mg/dL 8.5-10.1 Serum or plasma total bilirubin measurement (mass/volume) 1.3 mg/dL 0.1-1.0 Serum or plasma alkaline phosphatase measurement (enzymatic activity/volume) 68 U/L 40-136 Serum or plasma aspartate aminotransferase measurement (enzymatic activity/ volume) 22 U/L 5-34 Serum or plasma alanine aminotransferase measurement (enzymatic activity/volume ) 16 U/L 0-55 Serum or plasma protein measurement (mass/volume) 7.1 g/dL 6.4-8.2 Serum or plasma albumin measurement (mass/volume) 4.4 g/dL 3.2-4.5 CALCIUM CORRECTED 9.6 mg/dL 8.5-10.1 Encounters ACCT No. Visit Date/Time Discharge Status Pt. Type Provider Facility Loc./Unit Complaint [id number] 10/30/2017 14:32:00 10/30/2017 23:59:59 CLS Outpatient FILEMON PERALTA DO [facility] RAD PAIN IN LOWER RIGHT QUADRANT FOR 3 WEEKS [id number] 09/04/2017 00:06:00 09/04/2017 03:00:00 DIS Outpatient GUANACO KESSLER MD [facility] ER BACK SIDE PAIN-FALL [id number] 06/27/2017 07:58:00 06/27/2017 23:59:59 CLS Outpatient ANA MARIA LI MD [facility] CARD I25.10 CAD [id number] 02/26/2016 15:21:00 02/26/2016 17:24:00 DIS Emergency YOUSUF LOPEZ DIRECTOR OF [employer] DEVELOPMENT [facility] ER VAGINAL BLEEDING, HAS HAD HYSTERECTOMY [id number] 12/27/2015 09:49:00 12/27/2015 23:59:59 CLS Outpatient ANA MARIA LI MD [facility] CARD CAD,HTN,LAFB,MIXED HLP [id number] 08/06/2015 11:35:00 08/06/2015 23:59:59 CLS Outpatient FILEMON PERALTA DO [facility] RAD LOW BACK PAIN, SCIATICA [id number] 07/06/2015 07:59:00 07/06/2015 23:59:59 CLS Outpatient FILEMON PERALTA DO [facility] RAD SMALL BOWEL LOOPS WITHIN LLQ ADHESIONS [id number] 06/30/2015 10:20:00 06/30/2015 23:59:59 CLS Outpatient FILEMON PERALTA DO [facility] RAD PAIN IN LT SIDE AND BACK [id number] 06/18/2015 10:40:00 06/18/2015 23:59:59 CLS Outpatient FILEMON PERALTA DO [facility] RAD BACK PAIN AND L HIP PAIN [id number] 06/11/2015 12:02:00 06/11/2015 23:59:59 CLS Outpatient FILEMON PERALTA DO [facility] RAD LOWER BACK PAIN [id number] 08/24/2012 11:28:00 08/24/2012 23:59:59 CLS Outpatient [id number] 04/08/2014 19:33:00 Document Registration [id number] 02/02/2012 09:31:00 Document Registration [id number] 01/31/2012 07:25:00 Document Registration [id number] 09/29/2010 08:57:00 Document Registration [id number] 04/12/2010 07:12:00 Document Registration [id number] 07/23/2009 08:57:00 Document Registration [id number] 01/18/2009 10:47:00 Document Registration [id number] 01/07/2009 17:16:00 Document Registration
--- NOTE | 2018-01-23 11:00 | ED General ---
General Stated Complaint: WEAKNESS Source of Information: Patient Exam Limitations: No Limitations History of Present Illness Date Seen by Provider: Jan 23, 2018 Time Seen by Provider: 10:58 Initial Comments To ER per private vehicle from home with reports of generalized weakness. She felt well last night, this morning upon awakening she was unable to get from the toilet to the shower. She called her daughter and was subsequently brought here. She denies any shortness of breath, has had a slight cough. She also states that she can feel some crackles when she breathes on the left side of her chest for the past few days. No abdominal pain. No chest pain. No nausea vomiting or diarrhea. Timing/Duration: 4-6 Hours Severity: Moderate Associated Systoms: Cough, Fever/Chills Allergies and Home Medications Allergies Coded Allergies: codeine (Verified Allergy, Unknown, 09/04/17) Home Medications Hydrochlorothiazide 12.5 Mg Cap, 12.5 MG PO DAILY, (Reported) Metoprolol Tartrate 50 Mg Tablet, 1 EACH PO DAILY, (Reported) Olmesartan Medoxomil 40 Mg Tablet, 40 MG PO DAILY, (Reported) Pantoprazole Sodium 40 Mg Tablet.dr, 40 MG PO DAILY, (Reported) Simvastatin 20 Mg Tablet, 20 MG PO HS, (Reported) Sucralfate 1 Gm Tab, 1 GM PO QID, (Reported) [aciphex] , 20 MG PO DAILY, (Reported) Patient Home Medication List Home Medication List Reviewed: Yes Review of Systems Review of Systems Constitutional: see HPI, weakness EENTM: see HPI Respiratory: see HPI, cough Cardiovascular: no symptoms reported Genitourinary: no symptoms reported Musculoskeletal: no symptoms reported Skin: no symptoms reported Psychiatric/Neurological: No Symptoms Reported Past Fjuwxfu-Mghxwy-Cxklwh Hx Patient Social History Recent Hopitalizations: Yes (BACK SX) Immunizations Up To Date Date of Influenza Vaccine: Nov 27, 2011 Past Medical History Surgeries: Yes (CARPAL TUNNEL, BACK) Hysterectomy, Tonsillectomy Respiratory: No Cardiac: Yes Hypertension Neurological: Yes Reproductive Disorders: No Gastrointestinal: Yes (ULCERS) Gastroesophageal Reflux Musculoskeletal: No Endocrine: No Psychosocial: No Blood Disorders: No Family Medical History No Pertinent Family Hx Physical Exam Vital Signs Vital Signs - First Documented 01/23/18 11:06 Temp 101.6 Pulse 84 Resp 20 B/P (MAP) 133/62 (85) Pulse Ox 96 Capillary Refill : Height, Weight, BMI Height: 5'2.00" Weight: 149lbs. 0.0oz. 67.956014wz; 25.1 BMI Method:Stated General Appearance: No Apparent Distress, WD/WN, Other (she does have some slight periorbital edema, mostly of the upper eyelids.) Eyes: Bilateral Eye Normal Inspection, Bilateral Eye PERRL HEENT: PERRL/EOMI, TMs Normal Neck: Full Range of Motion, Non Tender Respiratory: No Accessory Muscle Use, No Respiratory Distress Cardiovascular: Regular Rate, Rhythm, Systolic Murmur Gastrointestinal: Normal Bowel Sounds, Non Tender, Soft Extremity: Normal Capillary Refill, Normal Inspection, Other (2+ pitting edema bilateral lower extremities) Neurologic/Psychiatric: Alert, Oriented x3, Other (very lethargic but converses appropriately and GCS is 15.) Skin: Normal Color, Warm/Dry Comments She is weak equally in all extremities Focused Exam Lactate Level 01/23/18 11:06: Lactic Acid Level 0.86 Lactic Acid Level Laboratory Tests Test 01/23/18 11:06 Lactic Acid Level 0.86 MMOL/L (0.50-2.00) Progress/Results/Core Measures Suspected Sepsis SIRS Temperature: Pulse: Respiratory Rate: Laboratory Tests 01/23/18 11:06: White Blood Count 3.9L Blood Pressure / Mean: 01/23/18 11:06: Lactic Acid Level 0.86 Laboratory Tests 01/23/18 11:06: Creatinine 0.82, Platelet Count 132, Total Bilirubin 1.8H Results/Orders Lab Results Laboratory Tests Test 01/23/18 11:06 Range/Units White Blood Count 3.9 L 4.3-11.0 10^3/uL Red Blood Count 4.02 L 4.35-5.85 10^6/uL Hemoglobin 12.1 11.5-16.0 G/DL Hematocrit 35 35-52 % Mean Corpuscular Volume 88 80-99 FL Mean Corpuscular Hemoglobin 30 25-34 PG Mean Corpuscular Hemoglobin Concent 34 32-36 G/DL Red Cell Distribution Width 13.1 10.0-14.5 % Platelet Count 132 130-400 10^3/uL Mean Platelet Volume 10.0 7.4-10.4 FL Neutrophils (%) (Auto) 88 H 42-75 % Lymphocytes (%) (Auto) 6 L 12-44 % Monocytes (%) (Auto) 5 0-12 % Eosinophils (%) (Auto) 1 0-10 % Basophils (%) (Auto) 0 0-10 % Neutrophils # (Auto) 3.5 1.8-7.8 X 10^3 Lymphocytes # (Auto) 0.3 L 1.0-4.0 X 10^3 Monocytes # (Auto) 0.2 0.0-1.0 X 10^3 Eosinophils # (Auto) 0.0 0.0-0.3 10^3/uL Basophils # (Auto) 0.0 0.0-0.1 10^3/uL Neutrophils % (Manual) 87 % Lymphocytes % (Manual) 7 % Monocytes % (Manual) 1 % Eosinophils % (Manual) 0 % Basophils % (Manual) 0 % Band Neutrophils 2 % Reactive Lymphocytes 3 % Toxic Granulation 1+ Poikilocytosis SLIGHT Elliptocytes SLIGHT Rouleau SLIGHT Urine Color YELLOW Urine Clarity CLEAR Urine pH 5 5-9 Urine Specific [place] 1.015 L 1.016-1.022 Urine Protein 1+ H NEGATIVE Urine Glucose (UA) NEGATIVE NEGATIVE Urine Ketones NEGATIVE NEGATIVE Urine Nitrite NEGATIVE NEGATIVE Urine Bilirubin NEGATIVE NEGATIVE Urine Urobilinogen NORMAL NORMAL MG/DL Urine Leukocyte Esterase NEGATIVE NEGATIVE Urine RBC (Auto) 2+ H NEGATIVE Urine RBC 2-5 H /HPF Urine WBC 0-2 /HPF Urine Squamous Epithelial Cells 0-2 /HPF Urine Renal Epithelial Cells NONE /HPF Urine Crystals NONE /LPF Urine Bacteria TRACE /HPF Urine Casts PRESENT /LPF Urine Hyaline Casts 0-2 H /LPF Urine Mucus MODERATE H /LPF Urine Culture Indicated NO Sodium Level 139 135-145 MMOL/L Potassium Level 3.9 3.6-5.0 MMOL/L Chloride Level 105 98-107 MMOL/L Carbon Dioxide Level 22 21-32 MMOL/L Anion Gap 12 5-14 MMOL/L Blood Urea Nitrogen 28 H 7-18 MG/DL Creatinine 0.82 0.60-1.30 MG/DL Estimat Glomerular Filtration Rate > 60 BUN/Creatinine Ratio 34 Glucose Level 115 H 70-105 MG/DL Lactic Acid Level 0.86 0.50-2.00 MMOL/L Calcium Level 9.2 8.5-10.1 MG/DL Corrected Calcium 9.0 8.5-10.1 MG/DL Total Bilirubin 1.8 H 0.1-1.0 MG/DL Aspartate Amino Transf (AST/SGOT) 23 5-34 U/L Alanine Aminotransferase (ALT/SGPT) 13 0-55 U/L Alkaline Phosphatase 64 40-136 U/L Troponin I < 0.30 <0.30 NG/ML B-Type Natriuretic Peptide 143.6 H <100.0 PG/ML Total Protein 7.0 6.4-8.2 GM/DL Albumin 4.2 3.2-4.5 GM/DL Thyroid Stimulating Hormone (TSH) 0.79 0.35-4.94 UIU/ML Free Thyroxine 0.96 0.70-1.48 NG/DL Micro Results Microbiology 01/23/18 Influenza Types A,B Antigen (DAVID) - Final, Complete My Orders Orders - YOUSUF LOPEZ APRN Cbc With Automated Diff (01/23/18 10:56) Comprehensive Metabolic Panel (01/23/18 10:56) BNP (01/23/18 10:56) Thyroid Stimulating Hormone (01/23/18 10:56) Free T4 (Free Thyroxine) (01/23/18 10:56) Blood Culture (01/23/18 10:56) Chest 1 View, Ap/Pa Only (01/23/18 10:56) Ua Culture If Indicated (01/23/18 10:56) Influenza A And B Antigens (01/23/18 10:56) Lactic Acid Analyzer (01/23/18 10:56) Troponin I (01/23/18 10:56) Ekg Tracing (01/23/18 10:56) Manual Differential (01/23/18 11:06) Ceftriaxone For Iv Use (Rocephin For I (01/23/18 13:00) Ibuprofen Tablet (Motrin Tablet) (01/23/18 13:00) Medications Given in ED Current Medications Medications Dose Ordered Sig/Piter Route Start Time Stop Time Status Last Admin Dose Admin Ceftriaxone Sodium 1000 mg/ Sodium Chloride 50 ml @ 100 mls/hr ONCE ONCE IV 01/23/18 13:00 01/23/18 13:29 01/23/18 13:08 100 MLS/HR Ibuprofen 800 mg ONCE ONCE PO 01/23/18 13:00 01/23/18 13:01 DC 01/23/18 13:08 800 MG Vital Signs/I&O 01/23/18 11:06 Temp 101.6 Pulse 84 Resp 20 B/P (MAP) 133/62 (85) Pulse Ox 96 Capillary Refill : Diagnostic Imaging Diagonstic Imaging: Xray Comments NAME: PARRIS NELSON [facility] REC#: [id number] PT STATUS: REG ER : 1945 PHYSICIAN: YOUSUF LOPEZ APRN ADMIT DATE: 01/23/18/ER Draft Date of Exam:01/23/18 CHEST 1 VIEW, AP/PA ONLY INDICATION: Weakness. TIME OF EXAM: 11:14 AM Comparison is made with prior chest from 07/15/2008. FINDINGS: The heart size is normal. The pulmonary vascularity is unremarkable. The lungs are clear. No infiltrate, effusion or pneumothorax is detected. IMPRESSION: No acute cardiopulmonary process is detected. Dictated on workstation # [id number] Dict: 01/23/18 1127 Trans: 01/23/18 1137 [id number] Interpreted by: JEFERSON CORRALES MD Electronically signed by: Departure Communication (Admissions) Time/Spoke to Admitting Phy: 13:[address] Peralta, we'll admit, empiric Rocephin, IV fluids, physical therapy consult, antipyretics. Impression Primary Impression: Left lower lobe pneumonia Additional Impressions: Febrile illness General weakness Disposition: ADMITTED INPATIENT Condition: Stable Admissions Decision to Admit Reason: Admit from ER (General) Decision to Admit/Date: Jan 23, 2018 Time/Decision to Admit Time: 11:00 Departure-Patient Inst. Referrals: FILEMON PERALTA DO (PCP/Family) Primary Care Physician YOUSUF LOPEZ APRN Jan 23, 2018 11:00
[2018-01-23 11:15] LABS: BASOPHILS % (AUTO) 0 % (0-10); EOSINOPHILS % (AUTO) 1 % (0-10); HEMATOCRIT 35 % (35-52); HEMOGLOBIN 12.1 G/DL (11.5-16.0); LYMPHOCYTES # (AUTO) 0.3 X 10^3 (1.0-4.0); LYMPHOCYTES % (AUTO) 6 % (12-44); MEAN CORPUSCULAR HEMOGLOBIN 30 PG (25-34); MEAN CORPUSCULAR HGB CONC 34 G/DL (32-36); MEAN CORPUSCULAR VOLUME 88 FL (80-99); MONOCYTES # (AUTO) 0.2 X 10^3 (0.0-1.0); MONOCYTES % (AUTO) 5 % (0-12); NEUTROPHILS # (AUTO) 3.5 X 10^3 (1.8-7.8); NEUTROPHILS % (AUTO) 88 % (42-75); PLATELET COUNT 132 10^3/uL (130-400); RED BLOOD COUNT 4.02 10^6/uL (4.35-5.85); RED CELL DISTRIBUTION WIDTH 13.1 % (10.0-14.5); WHITE BLOOD COUNT 3.9 10^3/uL (4.3-11.0)
[2018-01-23 11:16] LABS: BILIRUBIN,URINE NEGATIVE (NEGATIVE); CLARITY,URINE CLEAR; COLOR,URINE YELLOW; GLUCOSE, URINE (UA) NEGATIVE (NEGATIVE); KETONES,URINE NEGATIVE (NEGATIVE); LEUKOCYTE ESTERASE ,URINE NEGATIVE (NEGATIVE); NITRITE,URINE NEGATIVE (NEGATIVE); PH,URINE 5 (5-9); PROTEIN,URINE 1+ (NEGATIVE); UROBILINOGEN,URINE NORMAL (NORMAL)
[2018-01-23 11:33] LABS: BAND NEUTROPHILS 2 %; BASOPHILS % (MANUAL) 0 %; EOSINOPHILS % (MANUAL) 0 %; LYMPHOCYTES % (MANUAL) 7 %; MONOCYTES % (MANUAL) 1 %; NEUTROPHILS % (MANUAL) 87 %; REACTIVE LYMPHOCYTES 3 %
[2018-01-23 11:34] LABS: ALANINE AMINOTRANSFERASE 13 U/L (0-55); ALBUMIN 4.2 GM/DL (3.2-4.5); ALKALINE PHOSPHATASE 64 U/L (40-136); BILIRUBIN,TOTAL 1.8 MG/DL (0.1-1.0); BUN/CREATININE RATIO 34; CALCIUM 9.2 MG/DL (8.5-10.1); CARBON DIOXIDE 22 MMOL/L (21-32); CHLORIDE 105 MMOL/L (98-107); CREATININE SERUM 0.82 MG/DL (0.60-1.30); ELLIPT/OVALOCYTES SLIGHT; GFR ESTIMATED > 60; GLUCOSE 115 MG/DL (70-105); POIKILOCYTOSIS SLIGHT; POTASSIUM 3.9 MMOL/L (3.6-5.0); ROULEAUX SLIGHT; SODIUM 139 MMOL/L (135-145); TOXIC GRANULATION/VACUOLAZATIO 1+
--- NOTE | 2018-01-23 11:38 | Diagnostic Imaging Report ---
INDICATION: Weakness. TIME OF EXAM: 11:14 AM Comparison is made with prior chest from 07/15/2008. FINDINGS: The heart size is normal. The pulmonary vascularity is unremarkable. The lungs are clear. No infiltrate, effusion or pneumothorax is detected. IMPRESSION: No acute cardiopulmonary process is detected. Dictated by: Dictated on workstation # [id number]
[2018-01-23 11:42] LABS: BACTERIA,URINE TRACE /HPF; HYALINE CASTS, URINE 0-2 /LPF; SQUAMOUS EPITHELIAL CELL,UR 0-2 /HPF; WBC,URINE 0-2 /HPF
[2018-01-23 11:55] LABS: FREE T4 (FREE THYROXINE) 0.96 NG/DL (0.70-1.48)
[2018-01-23] MEDS ORDERED: IBUPROFEN 800 MG (MOTRIN) TAB PO ONE (13:00)
[2018-01-23] MEDS ORDERED: cefTRIAXone FOR IV USE 1,000 MG in NS (IVPB) 50 ML IV ONE (13:00)
[2018-01-23 13:30] VITALS: BP 131/71
--- OUTSIDE RECORDS SUMMARY | 2018-01-23 13:53 | XMS REPORT | Continuity of Care Document ---
Author Author [facility] Organization [facility] Address Unknown Phone Unavailable Allergies Active Description Code Type Severity Reaction Onset Reported/Identified Relationship to Patient Clinical Status Yes codeine [id number] Drug Allergy Unknown N/A 09/04/2017 Medications There [...] MD Ot I25.10 ATHSCL HEART DISEASE OF [place] CORONARY 12/28/2015 ANA MARIA LI MD Ot I44.4 LEFT ANTERIOR FASCICULAR BLOCK 12/31/2015 ANA MARIA LI MD Ot E78.2 MIXED HYPERLIPIDEMIA 12/31/2015 ANA MARIA LI MD Ot I10 ESSENTIAL (PRIMARY) HYPERTENSION 12/31/2015 ANA MARIA LI MD Ot I25.10 ATHSCL HEART DISEASE OF [place] CORONARY 12/31/2015 ANA MARIA LI MD Ot I44.4 LEFT ANTERIOR FASCICULAR BLOCK 01/18/2016 ANA MARIA LI MD Ot E78.2 MIXED HYPERLIPIDEMIA 01/18/2016 ANA MARIA LI MD Ot I10 ESSENTIAL (PRIMARY) HYPERTENSION 01/18/2016 ANA MARIA LI MD Ot I25.10 ATHSCL HEART DISEASE OF [place] CORONARY 01/18/2016 ANA MARIA LI MD Ot I44.4 LEFT ANTERIOR FASCICULAR BLOCK 01/24/2016 ANA MARIA LI MD Ot E78.2 MIXED HYPERLIPIDEMIA 01/24/2016 ANA MARIA LI MD Ot I10 ESSENTIAL (PRIMARY) HYPERTENSION 01/24/2016 ANA MARIA LI MD Ot I25.10 ATHSCL HEART DISEASE OF [place] CORONARY 01/24/2016 ANA MARIA LI MD Ot I44.4 LEFT ANTERIOR FASCICULAR BLOCK 02/26/2016 YOUSUF LOPEZ APRN Ot I10 ESSENTIAL (PRIMARY) HYPERTENSION 02/26/2016 YOUSUF LOPEZ APRN Ot N93.9 ABNORMAL UTERINE AND VAGINAL BLEEDING, U 02/26/2016 YOUSUF LOPEZ APRN Ot Z79.899 OTHER [facility] (CURRENT) DRUG THERAPY 02/26/2016 YOUSUF LOPEZ PASSENGER REPRESENTATIVE Ot Z90.710 ACQUIRED ABSENCE OF BOTH CERVIX AND UTER 02/29/2016 YOUSUF LOPEZ PASSENGER REPRESENTATIVE Ot I10 ESSENTIAL (PRIMARY) HYPERTENSION 02/29/2016 YOUSUF LOPEZ APRN Ot N93.9 ABNORMAL UTERINE AND VAGINAL BLEEDING, U 02/29/2016 YOUSUF LOPEZ APRN Ot Z79.899 OTHER [employer] (CURRENT) DRUG THERAPY 02/29/2016 YOUSUF LOPEZ APRN [...] MD Ot I25.10 ATHSCL HEART DISEASE OF [place] CORONARY 06/18/2017 ANA MARIA LI MD Ot I44.4 LEFT ANTERIOR FASCICULAR BLOCK 06/28/2017 ANA MARIA LI MD Ot E78.2 MIXED HYPERLIPIDEMIA 06/28/2017 ANA MARIA LI MD Ot I10 ESSENTIAL (PRIMARY) HYPERTENSION 06/28/2017 ANA MARIA LI MD Ot I25.10 ATHSCL HEART DISEASE OF [place] CORONARY 06/28/2017 ANA MARIA LI MD Ot I44.4 LEFT ANTERIOR FASCICULAR BLOCK 07/17/2017 ANA MARIA LI MD Ot E78.2 MIXED HYPERLIPIDEMIA 07/17/2017 ANA MARIA LI MD Ot I10 ESSENTIAL (PRIMARY) HYPERTENSION 07/17/2017 ANA MARIA LI MD Ot I25.10 ATHSCL HEART DISEASE OF [place] CORONARY 07/17/2017 ANA MARIA LI MD Ot I44.4 LEFT ANTERIOR FASCICULAR BLOCK 07/20/2017 ANA MARIA LI MD Ot E78.2 MIXED HYPERLIPIDEMIA 07/20/2017 ANA MARIA LI MD Ot I10 ESSENTIAL (PRIMARY) HYPERTENSION 07/20/2017 ANA MARIA LI MD Ot I25.10 ATHSCL HEART DISEASE OF [place] CORONARY 07/20/2017 ANA MARIA LI MD Ot [...] KESSLER MD Ot Y92.[address] IN [facility] NON-INSTITUT (PRIVATE 09/06/2017 GUANACO KESSLER MD [...] ENCOUNTER 09/20/2017 GUANACO KESSLER MD, Ot Y92.[address] [facility] NON-INSTIT[facility] (PRIVATE 09/20/2017 GUANACO KESSLER MD, [...] Status Pt. Type Provider Facility Loc./Unit Complaint [id number] 10/30/2017 14:32:00 10/30/2017 23:59:59 CLS Outpatient FILEMON PERALTA DO [facility] RAD PAIN IN LOWER RIGHT QUADRANT FOR 3 WEEKS [id number] 09/04/2017 00:06:00 09/04/2017 03:00:00 DIS Outpatient GUANACO KESSLER MD [facility] ER BACK SIDE PAIN-FALL [id number] 06/27/2017 07:58:00 06/27/2017 23:59:59 CLS Outpatient ANA MARIA LI MD [facility] CARD I25.10 CAD [id number] 02/26/2016 15:21:00 02/26/2016 17:24:00 DIS Emergency YOUSUF LOPEZ PASSENGER REPRESENTATIVE [facility] ER VAGINAL BLEEDING, HAS HAD HYSTERECTOMY [id number] 12/27/2015 09:49:00 12/27/2015 23:59:59 CLS Outpatient ANA MARIA LI MD [facility] CARD CAD,HTN,LAFB,MIXED HLP [id number] 08/06/2015 11:35:00 08/06/2015 23:59:59 CLS Outpatient FILEMON PERALTA DO [facility] RAD LOW BACK PAIN, SCIATICA [id number] 07/06/2015 07:59:00 07/06/2015 23:59:59 CLS Outpatient FILEMON PERALTA DO [facility] RAD SMALL BOWEL LOOPS WITHIN LLQ ADHESIONS [id number] 06/30/2015 10:20:00 06/30/2015 23:59:59 CLS Outpatient FILEMON PERALTA DO [facility] RAD PAIN IN LT SIDE AND BACK [id number] 06/18/2015 10:40:00 06/18/2015 23:59:59 CLS Outpatient FILEMON PERALTA DO [facility] RAD BACK PAIN AND L HIP PAIN [id number] 06/11/2015 12:02:00 06/11/2015 23:59:59 CLS Outpatient FILEMON PERALTA DO [facility] RAD LOWER BACK PAIN [id number] 08/24/2012 11:28:00 08/24/2012 23:59:59 CLS Outpatient [id number] 04/08/2014 19:33:00 Document Registration [id number] 02/02/2012 09:31:00 Document Registration [id number] 01/31/2012 07:25:00 Document Registration [id number] 09/29/2010 08:57:00 Document Registration [id number] 04/12/2010 07:12:00 Document Registration [id number] 07/23/2009 08:57:00 Document Registration [id number] 01/18/2009 10:47:00 Document Registration [id number] 01/07/2009 17:16:00 Document Registration
[2018-01-23] MEDS ORDERED: NS IV 1000 ML 1,000 ML ONE (14:04)
[2018-01-23] MEDS ORDERED: CATHETER FLUSH 10 ML SYR IV PRN (15:00)
[2018-01-23] MEDS: NS IV 1000 ML 1,000 ML IV SCH ×2 (15:00→16:01)
[2018-01-23] MEDS ORDERED: IBUPROFEN 600 MG (MOTRIN) TAB PO PRN (15:00)
[2018-01-23] MEDS ORDERED: ACETAMINOPHEN 325 MG TABLET PO PRN (15:00)
[2018-01-23] MEDS ORDERED: LOSA100T8 PO (15:30)
[2018-01-23] MEDS ORDERED: CALC300T4 PO (15:30)
[2018-01-23] MEDS ORDERED: SIMV20TA3 PO (15:30)
[2018-01-23] MEDS ORDERED: ROPI4TAB5 PO (15:30)
[2018-01-23] MEDS ORDERED: QUET25TA73 PO (15:30)
[2018-01-23] MEDS ORDERED: AMIT25TA9 PO (15:30)
[2018-01-23] MEDS ORDERED: METO-370 PO (15:30)
[2018-01-23] MEDS ORDERED: IBUP-30 PO (15:31)
[2018-01-23] MEDS ORDERED: PROM25TA14 PO (15:35)
[2018-01-23] MEDS ORDERED: OXYC-529 PO (15:35)
[2018-01-23] MEDS ORDERED: HYDR-3812 PO (15:35)
[2018-01-23 15:57] VITALS: BP 126/60
--- NOTE | 2018-01-23 16:01 | Physical Therapy Evaluation ---
PT Evaluation-General Medical Diagnosis Admission Date Jan 23, 2018 at 13:12 Medical Diagnosis: Weakness Onset Date: Jan 23, 2018 Therapy Diagnosis Therapy Diagnosis: General weakness Height/Weight Height (Feet): 5 Height (Inches): 2.00 Weight (Pounds): 156 Weight (Ounces): 8.0 Precautions Precautions/Isolations: Fall Prevention, Standard Precautions Weight Bear Status Right Lower Extremity: Right Full Weight Bearing Left Lower Extremity: Left Full Weight Bearing Referral Physician: Jonathan Clarke DO Reason for Referral: Evaluation/Treatment Medical History Additional Medical History Surgeries: Yes (CARPAL TUNNEL, BACK) Hysterectomy, Tonsillectomy Respiratory: No Cardiac: Yes Hypertension Neurological: Yes Reproductive Disorders: No Gastrointestinal: Yes (ULCERS) Gastroesophageal Reflux Musculoskeletal: No Endocrine: No Psychosocial: No Blood Disorders: No Current History Patient came into ER for generalized weakness Reviewed History: Yes Social History Home: Single Level Current Living Status: Children Entry Into Home: Stairs With Railing, Stairs Without Railing PT Steps Into Home: 2 PT Steps Inside Home: 0 Prior/Core FIM Prior Level of Function Functional [place] Measure 0=Not Assessed/NA 4=Minimal Assistance 1=Total Assistance 5=Supervision or Setup 2=Maximal Assistance 6=Modified [place] 3=Moderate Assistance 7=Complete [place] IRFPAI Quality Coding Scale 6 Independent with activity with or without an assistive device 5 Patient requires set up or clean up by helper. Patient completes activity by themselves 4 Supervision or touching assist (CGA). [place] provide cues , steadying assist 3 The helper provides less than half the effort to complete the activity 2 The helper provides more than half the effort to complete the activity 1 Dependent. The helper does all the effort to complete an activity 7 Patient refused to complete or attempt activity 9 The patient did not perform the activity before the current illness or injury 88 Not attempted due to Medical conditions or safety concerns Functional Abilities and Goals 3. Independent: Patient completed the activities by him/herself, with or without an assistive device, with no assistance from a helper. 2. Needed Some Help: Patient needed partial assistance from another person to complete activities. 1. Dependent: A helper completed the activities for the patient. 8. Unknown: 9. Not Applicable: Bed Mobility: 6 Transfers (B,C,W/C) (FIM): 6 Gait: 6 Stairs: 6 Indoor Mobility (Ambulation): Independent Stairs: Independent Prior Devices Use: Walker PT Evaluation-Current Subjective Patient at EOB with FISHER TROT LINE when PT entered room. Pt agreed to PT evaluation. Pain Numeric Pain Scale: 0-No Pain Location: No Pain Reported Pt/Family Goals to be independent at home Objective Patient Orientation: Normal For Age Problem Solving: Good Attachments: IV ROM/Strength ROM Upper Extremities WNL ROM Lower Extremities WNL Strength Upper Extremities WNL Strength Lower Extremities 4/5 BLE gross motor assessment Integumentary/Posture Bowel Incontinence: No Bladder Incontinence: No Sensory Vision: Wears Glasses Hearing: Functional Sensation Right Upper Extremit: Intact Sensation Left Upper Extremity: Intact Sensation Right Lower Extremit: Intact Sensation Left Lower Extremity: Intact Transfers Functional [place] Measure 0=Not Assessed/NA 4=Minimal Assistance 1=Total Assistance 5=Supervision or Setup 2=Maximal Assistance 6=Modified [place] 3=Moderate Assistance 7=Complete [place] Transfers (B, C, W/C) (FIM): 5 Scootin Rollin Supine to/from Sit: 5 Sit to/from Stand: 5 Gait Mode of Locomotion: Walk Anticipated Mode of Locomotion: Walk Gait (FIM): 2 Distance (FIM): 6=506-70 ft Distance: 125' Gait Level of Assist: 5 Gait Persons Needed: 1 Gait Assistive Device: FWW Comments/Gait Description shuffled gait pattern Balance Sitting Static: Good Sitting Dynamic: Good Standing Static: Good Standing Dynamic: Good Assessment/Needs Pt was able to ambulate with a FWW requiring SBA. She did not report any fatigue but had a shuffled gait pattern. Patient will continue therapy to maintain current level of function for daily demands. Rehab Potential: Good PT Skilled Nursing Goals Fuel Testing Technician Goals PT Skilled Nursing Goals Time Frame: Jan 30, 2018 Transfers (B,C,W/C) (FIM): 6 Gait (FIM): 6 Gait distance (FIM): 3=150 ft Distance: >150 Gait Level of Assist: 6 Gait Assistive Device: FWW PT Plan Problem List Problem List: Activity Tolerance, Functional Strength, Safety, Balance, Gait, Transfer, Bed Mobility, ROM Treatment/Plan Treatment Plan: Continue Plan of Care Treatment Plan: Bed Mobility, Education, Functional Activity Sapna, Functional Strength, Group Therapy, Gait, Safety, Therapeutic Exercise, Transfers Treatment Duration: Jan 30, 2018 Frequency: 6 times per week Estimated Hrs Per Day: .25 hour per day Patient and/or Family Agrees t: Yes Safety Risks/Education Patient Education: Gait Training, Transfer Techniques, Correct Positioning, Safety Issues Teaching Recipient: Patient Teaching Methods: Demonstration, Discussion Response to Teaching: Reinforcement Needed Time/GCodes Time In: 1535 Time Out: 1553 Total Billed Treatment Time: 18 Total Billed Treatment 1 Visit JIMBOM - 18 DAVID GLEASON PT Jan 23, 2018 16:01
[2018-01-23 16:50] VITALS: BP 133/62
[2018-01-23] MEDS ORDERED: RT-ALBUTEROL SULF 2.5 MG/3 ML PRE-MIX VIAL INH PRN (17:00)
--- NOTE | 2018-01-23 19:06 | History & Physicial ---
History of Present Illness History of Present Illness Reason for visit/HPI Patient came by private car to the emergency room. Patient felt good last night. This a.m. patient felt weak. Patient unable to get from toilet a shower. Patient felt like she was just deadweight patient running a temperature of 101.6. When patient breathing better has crackles in the left lung base Patient cannot get out of bed. Surgeries previously back, complete hysterectomy, tonsillectomy, and bilateral carpal tunnel. Family history denies asthma TB diabetes lung disease cancer father had heart disease Date of Admission Jan 23, 2018 at 13:12 Time Seen by a Provider: 19:01 I consulted on this patient on 01/23/18 19:01 Attending Physician Jonathan Peralta DO Admitting Physician Jonathan Peralta DO Consult Allergies and Home Medications Allergies Coded Allergies: codeine (Verified Allergy, Unknown, 09/04/17) Home Medications Amitriptyline HCl 25 Mg Tablet, 25 MG PO HS, (Reported) Calcium Carbonate 300 Mg Tab.chew, 300 MG PO TID PRN for HEARTBURN, (Reported) Hydrocodone/Acetaminophen 1 Each Tablet, 0.5 TAB PO Q6H PRN for PAIN-MODERATE, ( Reported) Ibuprofen 200 Mg Tablet, 600 MG PO TID PRN for PAIN-MILD, (Reported) Losartan Potassium 100 Mg Tablet, 100 MG PO DAILY, (Reported) Metoprolol Succinate 50 Mg Tab.er.24h, 50 MG PO DAILY, (Reported) Oxycodone HCl 5 Mg Tablet, 5 MG PO HS PRN for PAIN-SEVERE, (Reported) Promethazine HCl 25 Mg Tablet, 25 MG PO Q6H PRN for NAUSEA/VOMITING-1ST LINE, ( Reported) Quetiapine Fumarate 25 Mg Tablet, 12.5 MG PO HS PRN for HALLUCINATIONS, ( Reported) Ropinirole HCl 4 Mg Tablet, 4 MG PO 0830,1330,1830, (Reported) Simvastatin 20 Mg Tablet, 20 MG PO HS, (Reported) Patient Home Medication List Home Medication List Reviewed: Yes Past Jjuepde-Cayaas-Pujxfg Hx Patient Social History Marrital Status: Employed/Student: retired Alcohol Use: Denies Use Recreational Drug Use: No Smoking Status: Never a Smoker Physical Abuse Screen: No Sexual Abuse: No Recent Foreign Travel: No Contact w/other who traveled: No Recent Hopitalizations: Yes (BACK SX) Recent Infectious Disease Expo: No Immunizations Up To Date Date of Pneumonia Vaccine: Jan 08, 2017 Date of Influenza Vaccine: Nov 28, 2017 Seasonal Allergies Seasonal Allergies: No Surgeries Yes (CARPAL TUNNEL, BACK) Hysterectomy, Tonsillectomy Respiratory No Cardiovascular Yes Hypertension Neurological Yes Parkinson's Disease Reproductive System Hx Reproductive Disorders: No Genitourinary No Gastrointestinal Yes (ULCERS) Gastroesophageal Reflux, Ulcer Musculoskeletal No Endocrine History of Endocrine Disorders: No HEENT History of HEENT Disorders: No Cancer No Psychosocial History of Psychiatric Problem: No Integumentary History of Skin or Integumenta: No Blood Transfusions History of Blood Disorders: No Family Medical History Significant Family History: No Pertinent Family Hx Review of Systems Constitutional: malaise, weakness EENTM: no symptoms reported Respiratory: other (Crackles left side of lower lung) Cardiovascular: no symptoms reported Gastrointestinal: no symptoms reported Genitourinary: no symptoms reported Physical Exam Vital Signs Vital Signs - First Documented 01/23/18 01/23/18 11:06 13:30 Temp 101.6 Pulse 84 Resp 20 B/P (MAP) 133/62 (85) Pulse Ox 96 O2 Delivery Room Air Capillary Refill : Less Than 3 Seconds Height, Weight, BMI Height: 5'2.00" Weight: 156lbs. 8.0oz. 70.824125ol; 28.6 BMI Method:Stated General Appearance: No Apparent Distress, WD/WN Eyes: Bilateral Eye Normal Inspection HEENT: Normal ENT Inspection Neck: Full Range of Motion, Normal Inspection Respiratory: Normal Breath Sounds, No Accessory Muscle Use, No Respiratory Distress Cardiovascular: Regular Rate, Rhythm, Other (Has murmur) Gastrointestinal: Non Tender, Soft Assessment/Plan Assessment and Plan Febrile. Generalized weakness. Pneumonia. Admission Diagnosis Admission Status: Inpatient Order (span 2 midnights) Reason for Inpatient Admission: Febrile. Weakness. Deadweight. Sudden onset of inability to get around. Pneumonia with crackles Clinical Quality Measures DVT/VTE Risk/Contraindication: Risk Factor Score Per Nursin RFS Level Per Nursing on Admit: 3=High JONATHAN PERALTA DO Jan 23, 2018 19:06
[2018-01-23 19:12] VITALS: BP 121/58
[2018-01-23] MEDS ORDERED: ENOXAPARIN 40 MG/0.4 ML (LOVENOX) SYR SC SCH (19:15)
[2018-01-23] MEDS: SIMvastatin 20 MG (ZOCOR) TAB PO SCH (20:10)
[2018-01-24] VITALS (7 sets, daily range): BP systolic 133–162; BP diastolic 63–84
[2018-01-24] MEDS: NS IV 1000 ML 1,000 ML IV SCH ×2 (02:37→14:11)
[2018-01-24 05:30] LABS: BASOPHILS % (AUTO) 0 % (0-10); EOSINOPHILS % (AUTO) 1 % (0-10); HEMATOCRIT 30 % (35-52); HEMOGLOBIN 9.9 G/DL (11.5-16.0); LYMPHOCYTES # (AUTO) 0.5 X 10^3 (1.0-4.0); LYMPHOCYTES % (AUTO) 24 % (12-44); MEAN CORPUSCULAR HEMOGLOBIN 29 PG (25-34); MEAN CORPUSCULAR HGB CONC 33 G/DL (32-36); MEAN CORPUSCULAR VOLUME 88 FL (80-99); MEAN PLATELET VOLUME 9.9 FL (7.4-10.4); MONOCYTES # (AUTO) 0.2 X 10^3 (0.0-1.0); MONOCYTES % (AUTO) 11 % (0-12); NEUTROPHILS # (AUTO) 1.2 X 10^3 (1.8-7.8); NEUTROPHILS % (AUTO) 64 % (42-75); PLATELET COUNT 108 10^3/uL (130-400); RED BLOOD COUNT 3.38 10^6/uL (4.35-5.85); RED CELL DISTRIBUTION WIDTH 13.1 % (10.0-14.5); WHITE BLOOD COUNT 1.9 10^3/uL (4.3-11.0)
[2018-01-24 05:52] LABS: BUN/CREATININE RATIO 26; CALCIUM 8.3 MG/DL (8.5-10.1); CARBON DIOXIDE 20 MMOL/L (21-32); CHLORIDE 113 MMOL/L (98-107); GFR ESTIMATED > 60; GLUCOSE 98 MG/DL (70-105); POTASSIUM 3.3 MMOL/L (3.6-5.0); SODIUM 143 MMOL/L (135-145)
[2018-01-24] MEDS ORDERED: FUROSEMIDE 40 MG/4 ML INJ (LASIX) IVP NR (08:14)
[2018-01-24] MEDS ORDERED: KCL 20 MEQ TAB (K-DUR) PO NR (08:14)
[2018-01-24] MEDS: cefTRIAXone 1 GM/NS 50 ML IVPB IV SCH ×2 (09:01)
[2018-01-24] MEDS: meTOproloL SUCCINATE 50 MG (TOPROL XL) TAB PO SCH (09:01)
[2018-01-24] MEDS: LOSARTAN 100 MG (COZAAR) TABLET PO SCH (09:01)
--- NOTE | 2018-01-24 10:55 | Physical Therapy Daily Note ---
PT Daily Note-Current Subjective Pt awake in chair eating breakfast when PT arrived. Pt agreed to get up and walk for PT. Pain Numeric Pain Scale: 0-No Pain Location: No Pain Reported Mental Status Patient Orientation: Normal For Age Attachments: IV Transfers Functional [place] Measure 0=Not Assessed/NA 4=Minimal Assistance 1=Total Assistance 5=Supervision or Setup 2=Maximal Assistance 6=Modified [place] 3=Moderate Assistance 7=Complete Gilman IRFPAI Quality Coding Scale 6 Independent with activity with or without an assistive device 5 Patient requires set up or clean up by helper. Patient completes activity by themselves 4 Supervision or touching assist (CGA). [place] provide cues , steadying assist 3 The helper provides less than half the effort to complete the activity 2 The helper provides more than half the effort to complete the activity 1 Dependent. The helper does all the effort to complete an activity 7 Patient refused to complete or attempt activity 9 The patient did not perform the activity before the current illness or injury 88 Not attempted due to Medical conditions or safety concerns Transfers (B, C, W/C) (FIM): 5 Scootin Sit to/from Stand: 5 Weight Bearing Right Lower Extremity: Right Full Weight Bearing Left Lower Extremity: Left Full Weight Bearing Gait Training Gait (FIM): 4 Distance (FIM): 3=150 ft Distance: 150' Gait Level of Assist: 4 Gait Persons Needed: 1 Gait Assistive Device: FWW Exercises Seated Therapy Exercises: Ankle pumps, Long arc quads Assessment Pt able to ambulate for 150' with a FWW requiring CGA. Pt showed little signs of fatigue and returned to bedside recliner. Pt performed LE exercises in chair and said she will continue to do these in the afternoon. PT Scoring Machine Operator Goals Snf Goals PT Scoring Machine Operator Goals Time Frame: Jan 30, 2018 Transfers (B,C,W/C) (FIM): 6 Gait (FIM): 6 Gait distance (FIM): 3=150 ft Distance: >150 Gait Level of Assist: 6 Gait Assistive Device: FWW PT Plan Problem List Problem List: Activity Tolerance, Functional Strength, Safety, Balance, Gait Treatment/Plan Treatment Plan: Continue Plan of Care Treatment Plan: Bed Mobility, Education, Functional Activity Sapna, Functional Strength, Group Therapy, Gait, Safety, Therapeutic Exercise, Transfers Treatment Duration: Jan 30, 2018 Frequency: 6 times per week Estimated Hrs Per Day: .25 hour per day Patient and/or Family Agrees t: Yes Time/GCodes Time In: 1027 Time Out: 1037 Total Billed Treatment Time: 10 Total Billed Treatment 1 Visit FA - 10' BINA BEAUCHAMP PT Jan 24, 2018 10:55
--- NOTE | 2018-01-24 11:54 | Diagnostic Imaging Report ---
PA and lateral chest at 1034. Indication: Pneumonia. This exam is less than optimal as the patient is rotated. Allowing for this technical factor, the heart size is within normal limits and stable compared to 01/15/2018. The lungs remain clear. There is still no sign of failure, pneumonia or pleural effusion. There does appear to be a 4.7 x 6.5 cm hiatal hernia. The mediastinum is not widened. The osseous structures are intact. Impression: 1. Allowing for the rotation of the patient, there has been no significant change since the prior exam. There is no acute abnormality identified. 2. There does appear be a 4.7 x 6.5 cm hiatal hernia. Dictated by: Dictated on workstation # [id number]
[2018-01-24] MEDS ORDERED: NON-FORMULARY MEDICATION 1 EA EA (Hydrocodone/Acetaminophen (Hydrocodone-Acetamin 5-325 mg PO PRN (13:15)
[2018-01-24] MEDS ORDERED: NON-FORMULARY MEDICATION 1 EA EA (Calcium Carbonate (Tums) 300 MG) PO PRN (13:15)
[2018-01-24] MEDS ORDERED: PROMETHAZINE 25 MG (PHENERGAN) TAB PO PRN (13:15)
[2018-01-24] MEDS ORDERED: QUETIAPINE FUMARATE 12.5 MG PO PRN (13:15)
[2018-01-24] MEDS ORDERED: HYDROcodone/APAP 5 MG/325 MG (LORTAB) TAB PO PRN (13:30)
[2018-01-24] MEDS ORDERED: NON-FORMULARY MEDICATION 1 EA EA (Ropinirole HCl 4 MG) PO SCH (13:30)
[2018-01-24] MEDS ORDERED: CALCIUM CARBONATE 500 MG (TUMS) TAB.CHEW PO PRN (13:30)
[2018-01-24] MEDS ORDERED: QUEtiapine 25 MG (SEROquel) TAB IMMEDIATE RELEASE PO PRN (13:45)
[2018-01-24] MEDS: rOPINIRole 1 MG (REQUIP) TABLET PO SCH ×2 (14:11→19:14)
[2018-01-24] MEDS: AMITRIPTYLINE 25 MG (ELAVIL) TAB PO SCH (20:36)
[2018-01-24] MEDS: SIMvastatin 20 MG (ZOCOR) TAB PO SCH (20:36)
--- NOTE | 2018-01-24 23:36 | CONSULTATION REPORT ---
DATE OF SERVICE: 01/24/2018 The patient is admitted to 419. REFERRING AND PRIMARY PHYSICIAN: Jonathan Clarke DO IMPRESSION: 1. A 72-year-old female admitted with acute onset of generalized weakness and noted to be febrile on admission. 2. Currently on broad spectrum antibiotic with ceftriaxone daily. 3. New onset pancytopenia of undetermined etiology, but most likely secondary to the infection. 4. Two blood cultures from different sites growing gram-positive cocci indicating sepsis. RECOMMENDATIONS: 1. Continue to monitor CBC serially. 2. Continue treatment of sepsis with appropriate antibiotics. Once the ID and sensitivities are available. 3. Most likely the pancytopenia is related to the bacterial infection and sepsis. If the cytopenia does not resolve once the infection is controlled, she will need further evaluation. 4. I will follow the patient with you. BRIEF HISTORY: The patient is a 72-year-old female who was brought to the emergency room by her family because of fairly acute onset of generalized weakness. The patient denied any history of fever, chills or sweats at home. She was noted to be febrile with a temperature of 101.6 at the time of evaluation in the emergency room. Mims cultures were obtained and she was admitted to the hospital. Repeat CBC done today morning showed evidence of pancytopenia. Hence, a hematology consultation was requested. PAST MEDICAL HISTORY: Significant for hypertension for several years and on treatment. She has significant scoliosis and underwent a back surgery approximately 2 years ago, but still has significant low back pain. She was diagnosed with Parkinson's disease within the last 2 years and is on management for this. She denied any history of coronary artery disease, [place] or diabetes mellitus. PAST SURGICAL HISTORY: Include tonsillectomy and adenoidectomy in childhood, bilateral carpal tunnel release, TAHBSO several years ago for an ovarian cyst, which was not malignant. Recent low back surgery from two years ago for scoliosis. SOCIAL HISTORY: The patient was recently . She lives in [place], [place], with her daughter and son-in-law. She has two children, a daughter who lives with her and a son who lives close by. 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 Prior to that, she worked for [employer] for 12 years. She denied any tobacco, alcohol or other recreational drug use. She denied any exposure to chemicals, pesticides, etc., either at home or in her work environment. FAMILY HISTORY: Significant for three maternal uncles with history of lung cancer. Father had a myocardial infarction and while in his upper 50s. Mother with history of CVA and a brother with a history of CVA while in their 70s. No other medical problems in the family that the patient knows of. PHYSICAL EXAMINATION: GENERAL: Today showed an elderly female, weak appearing, awake and oriented and in no acute distress. VITAL SIGNS: Temperature was 99.7, pulse rate of 66, respirations 20, blood pressure 161/74 with oxygen saturation of 98% on room air. HEENT: Normocephalic, extraocular muscles intact, conjunctivae pink, oral mucosa slightly dry. NECK: Supple with no JVD. No cervical, supraclavicular or axillary lymphadenopathy palpable. CHEST: Symmetrical. LUNGS: Fairly clear to auscultation without wheezes or rales. CARDIOVASCULAR: Regular in rate and rhythm. No murmurs or gallops heard. ABDOMEN: Soft, nontender with no hepatosplenomegaly or other masses palpable. EXTREMITIES: Showed trace edema around the ankles. NEUROLOGIC: Showed no focal motor deficits. The patient has generalized weakness with motor strength of 4/5 bilaterally. LABORATORY DATA: CBC done yesterday at the time of admission showed WBC 3.9, hemoglobin 12.1 and platelet count 132,000 with neutrophil count 3.5 and lymphocyte count 0.3. Repeat CBC done today morning showed total white count of 1.9, hemoglobin 9.9, MCV 88, platelet count 108,000 with neutrophil count 1.2 and lymphocyte count 0.5. Chemistry panel done yesterday showed normal electrolytes. BUN was 28 and creatinine 0.82 with GFR more than 60 mL per minute. Liver function studies are normal except for total bilirubin level of 1.8. Troponin was less than 0.3 and BNP was 143.6. BMP done today morning showed a potassium of 3.3 and chloride 113. BUN was 18 and creatinine 0.7 with GFR more than 60 mL per minute. Lactic acid was 0.86 from yesterday. Urinalysis was unremarkable except for moderate amount of mucus. Preliminary report on blood cultures done from left and right antecubital fossa is growing gram-positive cocci. Identification and sensitivities pending. Chest x-ray done at the time of admission showed no acute cardiopulmonary process. Thank you for allowing me to participate in this patient's care. I will follow the patient with you and make appropriate recommendations. Job ID: [id number] DocumentID: [id number] Dictated Date: 01/24/2018 17:38:02 Hair Dryer Date: 01/24/2018 23:35:49 Dictated By: LYN YUAN MD
[2018-01-25 04:12] VITALS: BP 164/73
[2018-01-25 06:06] LABS: BASOPHILS % (AUTO) 0 % (0-10); EOSINOPHILS # (AUTO) 0.1 10^3/uL (0.0-0.3); EOSINOPHILS % (AUTO) 4 % (0-10); HEMATOCRIT 29 % (35-52); HEMOGLOBIN 9.8 G/DL (11.5-16.0); LYMPHOCYTES # (AUTO) 0.9 X 10^3 (1.0-4.0); LYMPHOCYTES % (AUTO) 34 % (12-44); MEAN CORPUSCULAR HEMOGLOBIN 30 PG (25-34); MEAN CORPUSCULAR HGB CONC 34 G/DL (32-36); MEAN CORPUSCULAR VOLUME 88 FL (80-99); MEAN PLATELET VOLUME 9.8 FL (7.4-10.4); MONOCYTES # (AUTO) 0.5 X 10^3 (0.0-1.0); MONOCYTES % (AUTO) 19 % (0-12); NEUTROPHILS # (AUTO) 1.1 X 10^3 (1.8-7.8); NEUTROPHILS % (AUTO) 42 % (42-75); PLATELET COUNT 115 10^3/uL (130-400); RED BLOOD COUNT 3.29 10^6/uL (4.35-5.85); RED CELL DISTRIBUTION WIDTH 13.2 % (10.0-14.5); WHITE BLOOD COUNT 2.6 10^3/uL (4.3-11.0)
[2018-01-25 06:21] LABS: BUN/CREATININE RATIO 18; CALCIUM 8.8 MG/DL (8.5-10.1); CARBON DIOXIDE 23 MMOL/L (21-32); CHLORIDE 109 MMOL/L (98-107); CREATININE SERUM 0.66 MG/DL (0.60-1.30); GFR ESTIMATED > 60; GLUCOSE 87 MG/DL (70-105); POTASSIUM 3.3 MMOL/L (3.6-5.0); SODIUM 142 MMOL/L (135-145)
[2018-01-25] MEDS ORDERED: KCL 20 MEQ TAB (K-DUR) PO NR (07:30)
--- NOTE | 2018-01-25 07:39 | Progress Note (SOAP) ---
Subjective Time Seen by a Provider: 07:37 Subjective/Events-last exam Patient feeling better today. Patient White blood cell count 2.6 plateauing and going up. Platelet count 115,000 plateauing and going up. Hemoglobin 9.8 hematocrit 29. Potassium 3.3 replaced. Patient states she was not confused last night. Waiting for culture results and sensitivity for sepsis Focused Exam Lactate Level 01/23/18 11:06: Lactic Acid Level 0.86 Objective Exam Vital Signs Date Time Temp Pulse Resp B/P (MAP) Pulse Ox O2 Delivery O2 Flow Rate FiO2 01/25/18 04:12 98.9 61 18 164/73 (103) 94 Room Air 01/24/18 23:58 97.8 67 18 162/74 (103) 94 Room Air 01/24/18 20:05 Room Air 01/24/18 19:42 98.7 64 20 141/67 (91) 96 Room Air 01/24/18 16:06 99.7 66 20 161/74 (103) 98 Room Air 01/24/18 12:00 99.0 61 18 150/65 (93) 94 Room Air 01/24/18 08:00 98.7 66 18 161/84 (109) 97 Room Air 01/24/18 08:00 Room Air 01/24/18 07:46 92 Room Air I & O 01/25/18 07:00 Intake Total 2070 ml Output Total 5 ml Balance 2065 ml Capillary Refill : Less Than 3 Seconds General Appearance: No Apparent Distress, WD/WN HEENT: Normal ENT Inspection Neck: Full Range of Motion, Normal Inspection Respiratory: Chest Non Tender, Lungs Clear, Normal Breath Sounds, No Accessory Muscle Use, No Respiratory Distress Cardiovascular: Regular Rate, Rhythm, No Murmur Gastrointestinal: non tender, soft Results Lab Laboratory Tests 01/25/18 05:15 Laboratory Tests 01/25/18 05:15: White Blood Count 2.6L, Red Blood Count 3.29L, Hemoglobin 9.8L, Hematocrit 29L, Mean Corpuscular Volume 88, Mean Corpuscular Hemoglobin 30, Mean Corpuscular Hemoglobin Concent 34, Red Cell Distribution Width 13.2, Platelet Count 115L, Mean Platelet Volume 9.8, Neutrophils (%) (Auto) 42, Lymphocytes (%) (Auto) 34, Monocytes (%) (Auto) 19H, Eosinophils (%) (Auto) 4, Basophils (%) (Auto) 0, Neutrophils # (Auto) 1.1L, Lymphocytes # (Auto) 0.9L, Monocytes # (Auto) 0.5, Eosinophils # (Auto) 0.1, Basophils # (Auto) 0.0, Sodium Level 142, Potassium Level 3.3L, Chloride Level 109H, Carbon Dioxide Level 23, Anion Gap 10, Blood Urea Nitrogen 12, Creatinine 0.66, Estimat Glomerular Filtration Rate > 60, BUN/ Creatinine Ratio 18, Glucose Level 87, Calcium Level 8.8 Microbiology 01/23/18 Blood Culture - Preliminary, Resulted Positive; See Report 01/23/18 Influenza Types A,B Antigen (DAVID) - Final, Complete Assessment/Plan Assessment/Plan Assess & Plan/Chief Complaint Febrile. Sepsis. Pancytopenia. Weakness. Patient still heard crackles in left lower lung. Blood cultures 2 came back positive waiting for sensitivity Clinical Quality Measures Admission Status Admission Dx Febrile. Generalized weakness. Pneumonia. DVT/VTE Risk/Contraindication: Risk Factor Score Per Nursin RFS Level Per Nursing on Admit: 3=High FILEMON PERALTA DO Jan 25, 2018 7:39 am
[2018-01-25 08:00] VITALS: BP 141/65
[2018-01-25] MEDS: LOSARTAN 100 MG (COZAAR) TABLET PO SCH (08:15)
[2018-01-25] MEDS: rOPINIRole 1 MG (REQUIP) TABLET PO SCH ×3 (08:15→18:35)
[2018-01-25] MEDS: meTOproloL SUCCINATE 50 MG (TOPROL XL) TAB PO SCH (08:24)
[2018-01-25] MEDS: cefTRIAXone 1 GM/NS 50 ML IVPB IV SCH ×2 (08:24)
--- NOTE | 2018-01-25 10:44 | Progress Note-Standard ---
Standard Progress Note Progress Notes/Assess & Plan Date Seen by a Provider: Jan 25, 2018 Time Seen by a Provider: 10:41 Progress/Assessment & Plan 72-year-old female admitted with febrile illness and generalized weakness. 2/2 blood cultures growing gram-positive cocci. Currently on ceftriaxone daily. Hematology consult because of pancytopenia. Patient is doing better today. Her blood counts also improving but still below normal. Continue to monitor serially. Await culture and sensitivity report and adjust medications if necessary. Dr. Tim is on-call for heme/onc this weekend. Focused Exam Lactate Level 01/23/18 11:06: Lactic Acid Level 0.86 LYN YUAN Jan 25, 2018 10:44
--- NOTE | 2018-01-25 11:08 | Physical Therapy Daily Note ---
PT Daily Note-Current Subjective Pt awake in chair watching tv when PT entered room. Pt agreed to get up and walk with PT. Pain Numeric Pain Scale: 0-No Pain Location: No Pain Reported Mental Status Patient Orientation: Normal For Age Transfers Therapy Code Descriptions/Definitions Functional Garza Measure: 0=Not Assessed/NA 4=Minimal Assistance 1=Total Assistance 5=Supervision or Setup 2=Maximal Assistance 6=Modified [place] 3=Moderate Assistance 7=Complete Garza Therapy Quality Codes: 6 Independent with activity with or without an assistive device 5 Patient requires set up or clean up by helper. Patient completes activity by themselves 4 Supervision or touching assist (CGA). [place] provide cues , steadying assist 3 The helper provides less than half the effort to complete the activity 2 The helper provides more than half the effort to complete the activity 1 Dependent. The helper does all the effort to complete an activity 7 Patient refused to complete or attempt activity 9 The patient did not perform the activity before the current illness or injury 88 Not attempted due to Medical conditions or safety concerns Transfers (B, C, W/C) (FIM): 6 Scootin Rollin Supine to/from Sit: 6 Sit to/from Stand: 6 Weight Bearing Right Lower Extremity: Right Full Weight Bearing Left Lower Extremity: Left Full Weight Bearing Gait Training Gait (FIM): 6 Distance (FIM): 3=150 ft Distance: 150' Gait Level of Assist: 6 Gait Assistive Device: FWW Assessment Pt is able to ambulate a 150' with a FWW requiring Mod I. Pt will be watched today by staff to determine if she will be able up to be up in room independently. Pt is not showing any signs of fatigue and was given red theraband to work on UE strength while sitting. Pt will be dismissed from PT services secondary to patient is at PLOF with all gross motors skills. PT Retirement Goals Mental Health Program Manager Goals PT Mental Health Program Manager Goals Time Frame: Jan 30, 2018 Transfers (B,C,W/C) (FIM): 6 Gait (FIM): 6 Gait distance (FIM): 3=150 ft Distance: >150 Gait Level of Assist: 6 Gait Assistive Device: FWW PT Plan Treatment/Plan Treatment Plan: Discontinue PT Treatment Plan: Bed Mobility, Education, Functional Activity Sapna, Functional Strength, Group Therapy, Gait, Safety, Therapeutic Exercise, Transfers Treatment Duration: Jan 30, 2018 Frequency: 6 times per week Estimated Hrs Per Day: .25 hour per day Patient and/or Family Agrees t: Yes Time/GCodes Time In: 1013 Time Out: 1025 Total Billed Treatment Time: 12 Total Billed Treatment 1 Visit FA - 12' BINA BEAUCHAMP PT Jan 25, 2018 11:08
[2018-01-25 12:00] VITALS: BP 160/79
[2018-01-25 15:51] VITALS: BP 159/70
[2018-01-25 20:00] VITALS: BP 141/60
[2018-01-25] MEDS: SIMvastatin 20 MG (ZOCOR) TAB PO SCH (20:10)
[2018-01-25] MEDS: AMITRIPTYLINE 25 MG (ELAVIL) TAB PO SCH (20:10)
[2018-01-25 23:51] VITALS: BP 150/69
[2018-01-26 04:00] VITALS: BP 165/71
[2018-01-26 06:24] LABS: BASOPHILS % (AUTO) 0 % (0-10); EOSINOPHILS # (AUTO) 0.1 10^3/uL (0.0-0.3); EOSINOPHILS % (AUTO) 3 % (0-10); HEMATOCRIT 32 % (35-52); HEMOGLOBIN 10.7 G/DL (11.5-16.0); LYMPHOCYTES % (AUTO) 35 % (12-44); MEAN CORPUSCULAR HEMOGLOBIN 29 PG (25-34); MEAN CORPUSCULAR HGB CONC 33 G/DL (32-36); MEAN CORPUSCULAR VOLUME 88 FL (80-99); MEAN PLATELET VOLUME 10.1 FL (7.4-10.4); MONOCYTES # (AUTO) 0.4 X 10^3 (0.0-1.0); MONOCYTES % (AUTO) 14 % (0-12); NEUTROPHILS # (AUTO) 1.4 X 10^3 (1.8-7.8); NEUTROPHILS % (AUTO) 48 % (42-75); PLATELET COUNT 127 10^3/uL (130-400); RED BLOOD COUNT 3.67 10^6/uL (4.35-5.85); WHITE BLOOD COUNT 2.9 10^3/uL (4.3-11.0)
[2018-01-26 06:40] LABS: BUN/CREATININE RATIO 17; CALCIUM 9.3 MG/DL (8.5-10.1); CARBON DIOXIDE 23 MMOL/L (21-32); CHLORIDE 109 MMOL/L (98-107); GFR ESTIMATED > 60; GLUCOSE 90 MG/DL (70-105); POTASSIUM 3.8 MMOL/L (3.6-5.0); SODIUM 143 MMOL/L (135-145)
[2018-01-26 08:00] VITALS: BP 165/77
[2018-01-26] MEDS: meTOproloL SUCCINATE 50 MG (TOPROL XL) TAB PO SCH (08:23)
[2018-01-26] MEDS: rOPINIRole 1 MG (REQUIP) TABLET PO SCH ×3 (08:23→18:24)
[2018-01-26] MEDS: LOSARTAN 100 MG (COZAAR) TABLET PO SCH (08:23)
[2018-01-26] MEDS: cefTRIAXone 1 GM/NS 50 ML IVPB IV SCH ×2 (08:24)
[2018-01-26 12:00] VITALS: BP 157/78
--- NOTE | 2018-01-26 12:29 | Progress Note-Hospitalist ---
Subjective HPI/CC On Admission Date Seen by Provider: Jan 26, 2018 Time Seen by Provider: 11:30 Subjective/Events-last exam Patient doing well Needs IV antibiotics until Sunday per primary care provider and hematology oncology consultation Overall feeling much better Bowel movements are normal Objective Exam Vital Signs Vital Signs Date Time Temp Pulse Resp B/P (MAP) Pulse Ox O2 Delivery O2 Flow Rate FiO2 01/26/18 12:00 98.1 66 18 157/78 (104) 96 Room Air Capillary Refill : Less Than 3 Seconds General Appearance: No Apparent Distress, WD/WN, Chronically ill Respiratory: Chest Non Tender, Lungs Clear, Normal Breath Sounds, No Accessory Muscle Use, No Respiratory Distress Cardiovascular: Regular Rate, Rhythm, No Edema, No Gallop, No JVD, No Murmur, Normal Peripheral Pulses Neurologic/Psychiatric: Alert, Oriented x3, No Motor/Sensory Deficits, Normal Mood/Affect Results/Procedures Lab Laboratory Tests 01/26/18 05:50 Patient resulted labs reviewed. Assessment/Plan Assessment and Plan Assess & Plan/Chief Complaint Assessment: Sepsis Fever Pancytopenia PD Scoliosis Plan: Continue IV antibiotics Ambulate Home meds Diagnosis/Problems Diagnosis/Problems (1) Sepsis Status: Resolved Qualifiers: Sepsis type: sepsis due to unspecified organism Qualified Codes: A41.9 - Sepsis, unspecified organism Resolution Date/Time: 01/26/18 @ 13:16 (2) Pancytopenia Status: Acute (3) Scoliosis Status: Chronic Qualifiers: Scoliosis type: idiopathic Idiopathic scoliosis type: other Spinal region : thoracolumbar Qualified Codes: M41.25 - Other idiopathic scoliosis, thoracolumbar region (4) Parkinsonism Status: Chronic Qualifiers: Parkinsonism type: Parkinson's disease Qualified Codes: G20 - Parkinson's disease (5) Risk for falls Status: Acute (6) Febrile illness Status: Acute (7) Left lower lobe pneumonia Status: Acute (8) General weakness Status: Acute Clinical Quality Measures DVT/VTE Risk/Contraindication: Risk Factor Score Per Nursin RFS Level Per Nursing on Admit: 3=High ALLYN HUDSON DO Jan 26, 2018 12:29
[2018-01-26 16:20] VITALS: BP 138/66
[2018-01-26 20:06] VITALS: BP 136/65
[2018-01-26] MEDS: SIMvastatin 20 MG (ZOCOR) TAB PO SCH (20:30)
[2018-01-26] MEDS: AMITRIPTYLINE 25 MG (ELAVIL) TAB PO SCH (20:30)
[2018-01-27] VITALS (7 sets, daily range): BP systolic 134–153; BP diastolic 66–79
[2018-01-27] MEDS: meTOproloL SUCCINATE 50 MG (TOPROL XL) TAB PO SCH (08:33)
[2018-01-27] MEDS: rOPINIRole 1 MG (REQUIP) TABLET PO SCH ×3 (08:33→18:26)
[2018-01-27] MEDS: LOSARTAN 100 MG (COZAAR) TABLET PO SCH (08:33)
[2018-01-27] MEDS: cefTRIAXone 1 GM/NS 50 ML IVPB IV SCH ×2 (08:34)
--- NOTE | 2018-01-27 11:34 | Progress Note-Hospitalist ---
Subjective HPI/CC On Admission Date Seen by Provider: Jan 27, 2018 Time Seen by Provider: 11:00 Subjective/Events-last exam Patient feels good BM+ Family at bedside painting her fingernails No pain is reported Labs will be checked tomorrow and likely DC Objective Exam Vital Signs Vital Signs Date Time Temp Pulse Resp B/P (MAP) Pulse Ox O2 Delivery O2 Flow Rate FiO2 01/27/18 12:00 98.9 60 18 138/66 (90) 98 Room Air Capillary Refill : Less Than 3 Seconds General Appearance: No Apparent Distress, WD/WN, Chronically ill Respiratory: Chest Non Tender, Lungs Clear, Normal Breath Sounds, No Accessory Muscle Use, No Respiratory Distress Cardiovascular: Regular Rate, Rhythm, No Edema, No Gallop, No JVD, No Murmur, Normal Peripheral Pulses Neurologic/Psychiatric: Alert, Oriented x3, No Motor/Sensory Deficits, Normal Mood/Affect Results/Procedures Lab Patient resulted labs reviewed. Assessment/Plan Assessment and Plan Assess & Plan/Chief Complaint Assessment: Sepsis Fever Pancytopenia PD Scoliosis Plan: Continue IV antibiotics Ambulate Home meds Diagnosis/Problems Diagnosis/Problems (1) Sepsis Status: Resolved Qualifiers: Sepsis type: sepsis due to unspecified organism Qualified Codes: A41.9 - Sepsis, unspecified organism Resolution Date/Time: 01/26/18 @ 13:16 (2) Pancytopenia Status: Acute (3) Scoliosis Status: Chronic Qualifiers: Scoliosis type: idiopathic Idiopathic scoliosis type: other Spinal region : thoracolumbar Qualified Codes: M41.25 - Other idiopathic scoliosis, thoracolumbar region (4) Parkinsonism Status: Chronic Qualifiers: Parkinsonism type: Parkinson's disease Qualified Codes: G20 - Parkinson's disease (5) Risk for falls Status: Acute (6) Febrile illness Status: Acute (7) Left lower lobe pneumonia Status: Acute (8) General weakness Status: Acute Clinical Quality Measures DVT/VTE Risk/Contraindication: Risk Factor Score Per Nursin RFS Level Per Nursing on Admit: 3=High ALLYN HUDSON DO Jan 27, 2018 11:34
[2018-01-27] MEDS: SIMvastatin 20 MG (ZOCOR) TAB PO SCH (20:49)
[2018-01-27] MEDS: AMITRIPTYLINE 25 MG (ELAVIL) TAB PO SCH (20:49)
[2018-01-28 03:54] VITALS: BP 144/65
[2018-01-28 07:28] LABS: BASOPHILS % (AUTO) 1 % (0-10); EOSINOPHILS # (AUTO) 0.1 10^3/uL (0.0-0.3); EOSINOPHILS % (AUTO) 2 % (0-10); HEMATOCRIT 35 % (35-52); HEMOGLOBIN 11.9 G/DL (11.5-16.0); LYMPHOCYTES # (AUTO) 1.5 X 10^3 (1.0-4.0); LYMPHOCYTES % (AUTO) 41 % (12-44); MEAN CORPUSCULAR HEMOGLOBIN 29 PG (25-34); MEAN CORPUSCULAR HGB CONC 34 G/DL (32-36); MEAN CORPUSCULAR VOLUME 87 FL (80-99); MEAN PLATELET VOLUME 9.8 FL (7.4-10.4); MONOCYTES # (AUTO) 0.4 X 10^3 (0.0-1.0); MONOCYTES % (AUTO) 10 % (0-12); NEUTROPHILS # (AUTO) 1.7 X 10^3 (1.8-7.8); NEUTROPHILS % (AUTO) 47 % (42-75); PLATELET COUNT 148 10^3/uL (130-400); RED BLOOD COUNT 4.05 10^6/uL (4.35-5.85); RED CELL DISTRIBUTION WIDTH 12.8 % (10.0-14.5); WHITE BLOOD COUNT 3.7 10^3/uL (4.3-11.0)
[2018-01-28 07:52] LABS: ALANINE AMINOTRANSFERASE 18 U/L (0-55); ALBUMIN 4.2 GM/DL (3.2-4.5); ALKALINE PHOSPHATASE 62 U/L (40-136); BUN/CREATININE RATIO 17; CALCIUM 9.5 MG/DL (8.5-10.1); CARBON DIOXIDE 26 MMOL/L (21-32); CHLORIDE 108 MMOL/L (98-107); CREATININE SERUM 0.75 MG/DL (0.60-1.30); GFR ESTIMATED > 60; GLUCOSE 92 MG/DL (70-105); POTASSIUM 3.9 MMOL/L (3.6-5.0); SODIUM 144 MMOL/L (135-145); TOTAL PROTEIN 6.5 GM/DL (6.4-8.2)
--- NOTE | 2018-01-28 07:56 | Progress Note (SOAP) ---
Subjective Time Seen by a Provider: 07:53 Subjective/Events-last exam Patient feeling better today. Patient would like to go home. White blood cell count 3.7 better. Organism sensitive to all antibiotics Objective Exam Vital Signs Date Time Temp Pulse Resp B/P (MAP) Pulse Ox O2 Delivery O2 Flow Rate FiO2 01/28/18 03:54 98.9 52 18 144/65 (91) 95 Room Air 01/27/18 23:40 98.9 58 18 153/69 (97) 96 Room Air 01/27/18 20:04 97.8 60 20 141/68 (92) 96 Room Air 01/27/18 20:00 Room Air 01/27/18 15:34 98.3 56 20 146/67 (93) 95 Room Air 01/27/18 12:00 98.9 60 18 138/66 (90) 98 Room Air 01/27/18 08:00 97.8 57 18 150/79 (102) 97 Room Air 01/27/18 08:00 Room Air I & O 01/28/18 07:00 Intake Total 1670 ml Balance 1670 ml Capillary Refill : Less Than 3 Seconds General Appearance: No Apparent Distress, WD/WN HEENT: Normal ENT Inspection Neck: Normal Inspection Respiratory: Lungs Clear, No Accessory Muscle Use, No Respiratory Distress Cardiovascular: Regular Rate, Rhythm, No Murmur Gastrointestinal: non tender, soft Results Lab Laboratory Tests 01/28/18 07:15 Laboratory Tests 01/28/18 07:15: White Blood Count 3.7L, Red Blood Count 4.05L, Hemoglobin 11.9, Hematocrit 35, Mean Corpuscular Volume 87, Mean Corpuscular Hemoglobin 29, Mean Corpuscular Hemoglobin Concent 34, Red Cell Distribution Width 12.8, Platelet Count 148, Mean Platelet Volume 9.8, Neutrophils (%) (Auto) 47, Lymphocytes (%) (Auto) 41, Monocytes (%) (Auto) 10, Eosinophils (%) (Auto) 2, Basophils (%) (Auto) 1, Neutrophils # (Auto) 1.7L, Lymphocytes # (Auto) 1.5, Monocytes # (Auto) 0.4, Eosinophils # (Auto) 0.1, Basophils # (Auto) 0.0, Sodium Level 144, Potassium Level 3.9, Chloride Level 108H, Carbon Dioxide Level 26, Anion Gap 10, Blood Urea Nitrogen 13, Creatinine 0.75, Estimat Glomerular Filtration Rate > 60, BUN/ Creatinine Ratio 17, Glucose Level 92, Calcium Level 9.5, Corrected Calcium 9.3 , Total Bilirubin 1.0, Aspartate Amino Transf (AST/SGOT) 26, Alanine Aminotransferase (ALT/SGPT) 18, Alkaline Phosphatase 62, Total Protein 6.5, Albumin 4.2 Microbiology 01/23/18 Blood Culture - Final, Complete Staphylococcus capitis See Comments 01/23/18 Influenza Types A,B Antigen (DAVID) - Final, Complete Assessment/Plan Assessment/Plan Assess & Plan/Chief Complaint Febrile. Sepsis. Pancytopenia. Weakness. Patient still heard crackles in left lower lung. Blood cultures 2 came back positive waiting for sensitivity. . 01/28/18. Febrile resolved Sepsis better area Pancytopenia better. Weakness better area Patient on hearing crackles left lower lung. Patient wants to go home today. Parkinson disease. Patient states she's walking better with the walker Clinical Quality Measures Admission Status Admission Dx Febrile. Generalized weakness. Pneumonia. DVT/VTE Risk/Contraindication: Risk Factor Score Per Nursin RFS Level Per Nursing on Admit: 3=High FILEMON PERALTA DO Jan 28, 2018 07:56
[2018-01-28] MEDS ORDERED: CEFD300C3 PO (07:59)
[2018-01-28 08:00] VITALS: BP 162/74
--- NOTE | 2018-01-28 08:00 | Discharge Inst-Simple/Standard ---
Discharge Inst-Standard Discharge Medications New, Converted or Re-Newed RX: Transmitted to Pharmacy Patient Instructions/Follow Up Plan of Care/Instructions/FU: 2 office on Sunday at 10 a.m. Activity as Tolerated: Yes Discharge Diet: No Restrictions FILEMON PERALTA DO Jan 28, 2018 08:00
[2018-01-28] MEDS: meTOproloL SUCCINATE 50 MG (TOPROL XL) TAB PO SCH (09:12)
[2018-01-28] MEDS: LOSARTAN 100 MG (COZAAR) TABLET PO SCH (09:12)
[2018-01-28] MEDS: rOPINIRole 1 MG (REQUIP) TABLET PO SCH ×2 (09:13→14:06)
[2018-01-28] MEDS: cefTRIAXone 1 GM/NS 50 ML IVPB IV SCH ×2 (09:13)
[2018-01-28] MEDS ORDERED: CEFDINIR 300 MG (OMNICEF) CAP PO SCH (09:30)
[2018-01-28 16:00] VITALS: BP 136/61
--- NOTE | 2018-01-28 17:50 | Progress Note-Standard ---
Standard Progress Note Progress Notes/Assess & Plan Date Seen by a Provider: Jan 28, 2018 Time Seen by a Provider: 17:47 Progress/Assessment & Plan 72-year-old female admitted with febrile illness and generalized weakness. 2/2 blood cultures growing gram-positive cocci. Culture and sensitivity showing Acinetobacter. Antibiotic therapy changed to cefdinir by mouth and patient is being discharged home. Lab work reviewed from today with resolution of pancytopenia. Pancytopenia most likely secondary to the infection and bacteremia. Follow her lab work on an outpatient basis and if pancytopenia recurs, we will be happy to see her on an outpatient basis. No follow-up appointment scheduled at the cancer center. LYN YUAN Jan 28, 2018 17:50
[2018-01-28 18:00] VITALS: BP 136/61
--- NOTE | 2018-01-29 07:24 | Discharge Summary ---
Diagnosis/Chief Complaint Date of Admission Jan 23, 2018 at 13:12 Date of Discharge Jan 28, 2018 at 18:00 Discharge Date: Jan 28, 2018 Discharge Time: 07:21 Discharge Diagnosis Febrile. Sepsis. Pancytopenia. Hypokalemia. Positive blood cultures. Has seen no bijan rXavi Parkinson disease Reason Hospital Visit Patient came by private car to the emergency room. Patient felt good last night. This a.m. patient felt weak. Patient unable to get from toilet a shower. Patient felt like she was just deadweight patient running a temperature of 101.6. When patient breathing better has crackles in the left lung base Patient cannot get out of bed. Surgeries previously back, complete hysterectomy, tonsillectomy, and bilateral carpal tunnel. Family history denies asthma TB diabetes lung disease cancer father had heart disease Discharge Summary Consultations Hematology Discharge Physical Examination Allergies: Coded Allergies: codeine (Verified Allergy, Unknown, 09/04/17) Vitals & I&Os Vital Signs Date Time Temp Pulse Resp B/P (MAP) Pulse Ox O2 Delivery O2 Flow Rate FiO2 01/28/18 18:00 61 18 136/61 96 Room Air 01/28/18 16:00 98.5 Hospital Course Patient in hospital did better. Patient felt better. Patient discharged to home Labs (last 24 hrs) Laboratory Tests 01/23/18 11:06: White Blood Count 3.9L, Red Blood Count 4.02L, Hemoglobin 12.1, Hematocrit 35, Mean Corpuscular Volume 88, Mean Corpuscular Hemoglobin 30, Mean Corpuscular Hemoglobin Concent 34, Red Cell Distribution Width 13.1, Platelet Count 132, Mean Platelet Volume 10.0, Neutrophils (%) (Auto) 88H, Lymphocytes (%) (Auto) 6L , Monocytes (%) (Auto) 5, Eosinophils (%) (Auto) 1, Basophils (%) (Auto) 0, Neutrophils # (Auto) 3.5, Lymphocytes # (Auto) 0.3L, Monocytes # (Auto) 0.2, Eosinophils # (Auto) 0.0, Basophils # (Auto) 0.0, Neutrophils % (Manual) 87, Lymphocytes % (Manual) 7, Monocytes % (Manual) 1, Eosinophils % (Manual) 0, Basophils % (Manual) 0, Band Neutrophils 2, Reactive Lymphocytes 3, Toxic Granulation 1+, Poikilocytosis SLIGHT, Elliptocytes SLIGHT, Rouleau SLIGHT, Urine Color YELLOW, Urine Clarity CLEAR, Urine pH 5, Urine Specific Nichols 1.015L, Urine Protein 1+H, Urine Glucose (UA) NEGATIVE, Urine Ketones NEGATIVE, Urine Nitrite NEGATIVE, Urine Bilirubin NEGATIVE, Urine Urobilinogen NORMAL, Urine Leukocyte Esterase NEGATIVE, Urine RBC (Auto) 2+H, Urine RBC 2-5H, Urine WBC 0-2, Urine Squamous Epithelial Cells 0-2, Urine Renal Epithelial Cells NONE , Urine Crystals NONE, Urine Bacteria TRACE, Urine Casts PRESENT, Urine Hyaline Casts 0-2H, Urine Mucus MODERATEH, Urine Culture Indicated NO, Sodium Level 139 , Potassium Level 3.9, Chloride Level 105, Carbon Dioxide Level 22, Anion Gap 12 , Blood Urea Nitrogen 28H, Creatinine 0.82, Estimat Glomerular Filtration Rate > 60, BUN/Creatinine Ratio 34, Glucose Level 115H, Lactic Acid Level 0.86, Calcium Level 9.2, Corrected Calcium 9.0, Total Bilirubin 1.8H, Aspartate Amino Transf (AST/SGOT) 23, Alanine Aminotransferase (ALT/SGPT) 13, Alkaline Phosphatase 64, Troponin I < 0.30, B-Type Natriuretic Peptide 143.6H, Total Protein 7.0, Albumin 4.2, Thyroid Stimulating Hormone (TSH) 0.79, Free Thyroxine 0.96 01/24/18 05:00: White Blood Count 1.9L, Red Blood Count 3.38L, Hemoglobin 9.9L, Hematocrit 30L, Mean Corpuscular Volume 88, Mean Corpuscular Hemoglobin 29, Mean Corpuscular Hemoglobin Concent 33, Red Cell Distribution Width 13.1, Platelet Count 108L, Mean Platelet Volume 9.9, Neutrophils (%) (Auto) 64, Lymphocytes (%) (Auto) 24, Monocytes (%) (Auto) 11, Eosinophils (%) (Auto) 1, Basophils (%) (Auto) 0, Neutrophils # (Auto) 1.2L, Lymphocytes # (Auto) 0.5L, Monocytes # (Auto) 0.2, Eosinophils # (Auto) 0.0, Basophils # (Auto) 0.0, Sodium Level 143, Potassium Level 3.3L, Chloride Level 113H, Carbon Dioxide Level 20L, Anion Gap 10, Blood Urea Nitrogen 18, Creatinine 0.70, Estimat Glomerular Filtration Rate > 60, BUN/ Creatinine Ratio 26, Glucose Level 98, Calcium Level 8.3L 01/25/18 05:15: White Blood Count 2.6L, Red Blood Count 3.29L, Hemoglobin 9.8L, Hematocrit 29L, Mean Corpuscular Volume 88, Mean Corpuscular Hemoglobin 30, Mean Corpuscular Hemoglobin Concent 34, Red Cell Distribution Width 13.2, Platelet Count 115L, Mean Platelet Volume 9.8, Neutrophils (%) (Auto) 42, Lymphocytes (%) (Auto) 34, Monocytes (%) (Auto) 19H, Eosinophils (%) (Auto) 4, Basophils (%) (Auto) 0, Neutrophils # (Auto) 1.1L, Lymphocytes # (Auto) 0.9L, Monocytes # (Auto) 0.5, Eosinophils # (Auto) 0.1, Basophils # (Auto) 0.0, Sodium Level 142, Potassium Level 3.3L, Chloride Level 109H, Carbon Dioxide Level 23, Anion Gap 10, Blood Urea Nitrogen 12, Creatinine 0.66, Estimat Glomerular Filtration Rate > 60, BUN/ Creatinine Ratio 18, Glucose Level 87, Calcium Level 8.8 01/26/18 05:50: White Blood Count 2.9L, Red Blood Count 3.67L, Hemoglobin 10.7L, Hematocrit 32L , Mean Corpuscular Volume 88, Mean Corpuscular Hemoglobin 29, Mean Corpuscular Hemoglobin Concent 33, Red Cell Distribution Width 13.0, Platelet Count 127L, Mean Platelet Volume 10.1, Neutrophils (%) (Auto) 48, Lymphocytes (%) (Auto) 35 , Monocytes (%) (Auto) 14H, Eosinophils (%) (Auto) 3, Basophils (%) (Auto) 0, Neutrophils # (Auto) 1.4L, Lymphocytes # (Auto) 1.0, Monocytes # (Auto) 0.4, Eosinophils # (Auto) 0.1, Basophils # (Auto) 0.0, Sodium Level 143, Potassium Level 3.8, Chloride Level 109H, Carbon Dioxide Level 23, Anion Gap 11, Blood Urea Nitrogen 12, Creatinine 0.70, Estimat Glomerular Filtration Rate > 60, BUN/ Creatinine Ratio 17, Glucose Level 90, Calcium Level 9.3 01/28/18 07:15: White Blood Count 3.7L, Red Blood Count 4.05L, Hemoglobin 11.9, Hematocrit 35, Mean Corpuscular Volume 87, Mean Corpuscular Hemoglobin 29, Mean Corpuscular Hemoglobin Concent 34, Red Cell Distribution Width 12.8, Platelet Count 148, Mean Platelet Volume 9.8, Neutrophils (%) (Auto) 47, Lymphocytes (%) (Auto) 41, Monocytes (%) (Auto) 10, Eosinophils (%) (Auto) 2, Basophils (%) (Auto) 1, Neutrophils # (Auto) 1.7L, Lymphocytes # (Auto) 1.5, Monocytes # (Auto) 0.4, Eosinophils # (Auto) 0.1, Basophils # (Auto) 0.0, Sodium Level 144, Potassium Level 3.9, Chloride Level 108H, Carbon Dioxide Level 26, Anion Gap 10, Blood Urea Nitrogen 13, Creatinine 0.75, Estimat Glomerular Filtration Rate > 60, BUN/ Creatinine Ratio 17, Glucose Level 92, Calcium Level 9.5, Corrected Calcium 9.3 , Total Bilirubin 1.0, Aspartate Amino Transf (AST/SGOT) 26, Alanine Aminotransferase (ALT/SGPT) 18, Alkaline Phosphatase 62, Total Protein 6.5, Albumin 4.2 Microbiology 01/23/18 Blood Culture - Final, Complete Staphylococcus capitis See Comments 01/23/18 Influenza Types A,B Antigen (DAVID) - Final, Complete Laboratory Tests 01/23/18 11:06 01/24/18 05:00 01/25/18 05:15 01/26/18 05:50 01/28/18 07:15 Pending Labs Microbiology Date/Time Source Procedure Growth Status 01/23/18 11:27 Peripheral Lt Ac Blood Culture - Final Staphylococcus capitis See Comments Complete 01/23/18 11:06 Peripheral Rt Ac Blood Culture - Final Acinetobacter radioresistens Complete 01/23/18 11:34 Nasopharynx Influenza Types A,B Antigen (DAVID) - Final Complete Laboratory Tests 01/23/18 11:06: White Blood Count 3.9, Red Blood Count 4.02, Hemoglobin 12.1, Hematocrit 35, Mean Corpuscular Volume 88, Mean Corpuscular Hemoglobin 30, Mean Corpuscular Hemoglobin Concent 34, Red Cell Distribution Width 13.1, Platelet Count 132, Mean Platelet Volume 10.0, Neutrophils (%) (Auto) 88, Lymphocytes (%) (Auto) 6, Monocytes (%) (Auto) 5, Eosinophils (%) (Auto) 1, Basophils (%) (Auto) 0, Neutrophils # (Auto) 3.5, Lymphocytes # (Auto) 0.3, Monocytes # (Auto) 0.2, Eosinophils # (Auto) 0.0, Basophils # (Auto) 0.0, Neutrophils % (Manual) 87, Lymphocytes % (Manual) 7, Monocytes % (Manual) 1, Eosinophils % (Manual) 0, Basophils % (Manual) 0, Band Neutrophils 2, Reactive Lymphocytes 3, Toxic Granulation 1+, Poikilocytosis SLIGHT, Elliptocytes SLIGHT, Rouleau SLIGHT, Urine Color YELLOW, Urine Clarity CLEAR, Urine pH 5, Urine Specific Nichols 1.015, Urine Protein 1+, Urine Glucose (UA) NEGATIVE, Urine Ketones NEGATIVE, Urine Nitrite NEGATIVE, Urine Bilirubin NEGATIVE, Urine Urobilinogen NORMAL, Urine Leukocyte Esterase NEGATIVE, Urine RBC (Auto) 2+, Urine RBC 2-5, Urine WBC 0-2, Urine Squamous Epithelial Cells 0-2, Urine Renal Epithelial Cells NONE , Urine Crystals NONE, Urine Bacteria TRACE, Urine Casts PRESENT, Urine Hyaline Casts 0-2, Urine Mucus MODERATE, Urine Culture Indicated NO, Sodium Level 139, Potassium Level 3.9, Chloride Level 105, Carbon Dioxide Level 22, Anion Gap 12, Blood Urea Nitrogen 28, Creatinine 0.82, Estimat Glomerular Filtration Rate > 60 , BUN/Creatinine Ratio 34, Glucose Level 115, Lactic Acid Level 0.86, Calcium Level 9.2, Corrected Calcium 9.0, Total Bilirubin 1.8, Aspartate Amino Transf ( AST/SGOT) 23, Alanine Aminotransferase (ALT/SGPT) 13, Alkaline Phosphatase 64, Troponin I < 0.30, B-Type Natriuretic Peptide 143.6, Total Protein 7.0, Albumin 4.2, Thyroid Stimulating Hormone (TSH) 0.79, Free Thyroxine 0.96 01/24/18 05:00: White Blood Count 1.9, Red Blood Count 3.38, Hemoglobin 9.9, Hematocrit 30, Mean Corpuscular Volume 88, Mean Corpuscular Hemoglobin 29, Mean Corpuscular Hemoglobin Concent 33, Red Cell Distribution Width 13.1, Platelet Count 108, Mean Platelet Volume 9.9, Neutrophils (%) (Auto) 64, Lymphocytes (%) (Auto) 24, Monocytes (%) (Auto) 11, Eosinophils (%) (Auto) 1, Basophils (%) (Auto) 0, Neutrophils # (Auto) 1.2, Lymphocytes # (Auto) 0.5, Monocytes # (Auto) 0.2, Eosinophils # (Auto) 0.0, Basophils # (Auto) 0.0, Sodium Level 143, Potassium Level 3.3, Chloride Level 113, Carbon Dioxide Level 20, Anion Gap 10, Blood Urea Nitrogen 18, Creatinine 0.70, Estimat Glomerular Filtration Rate > 60, BUN/ Creatinine Ratio 26, Glucose Level 98, Calcium Level 8.3 01/25/18 05:15: White Blood Count 2.6, Red Blood Count 3.29, Hemoglobin 9.8, Hematocrit 29, Mean Corpuscular Volume 88, Mean Corpuscular Hemoglobin 30, Mean Corpuscular Hemoglobin Concent 34, Red Cell Distribution Width 13.2, Platelet Count 115, Mean Platelet Volume 9.8, Neutrophils (%) (Auto) 42, Lymphocytes (%) (Auto) 34, Monocytes (%) (Auto) 19, Eosinophils (%) (Auto) 4, Basophils (%) (Auto) 0, Neutrophils # (Auto) 1.1, Lymphocytes # (Auto) 0.9, Monocytes # (Auto) 0.5, Eosinophils # (Auto) 0.1, Basophils # (Auto) 0.0, Sodium Level 142, Potassium Level 3.3, Chloride Level 109, Carbon Dioxide Level 23, Anion Gap 10, Blood Urea Nitrogen 12, Creatinine 0.66, Estimat Glomerular Filtration Rate > 60, BUN/ Creatinine Ratio 18, Glucose Level 87, Calcium Level 8.8 01/26/18 05:50: White Blood Count 2.9, Red Blood Count 3.67, Hemoglobin 10.7, Hematocrit 32, Mean Corpuscular Volume 88, Mean Corpuscular Hemoglobin 29, Mean Corpuscular Hemoglobin Concent 33, Red Cell Distribution Width 13.0, Platelet Count 127, Mean Platelet Volume 10.1, Neutrophils (%) (Auto) 48, Lymphocytes (%) (Auto) 35 , Monocytes (%) (Auto) 14, Eosinophils (%) (Auto) 3, Basophils (%) (Auto) 0, Neutrophils # (Auto) 1.4, Lymphocytes # (Auto) 1.0, Monocytes # (Auto) 0.4, Eosinophils # (Auto) 0.1, Basophils # (Auto) 0.0, Sodium Level 143, Potassium Level 3.8, Chloride Level 109, Carbon Dioxide Level 23, Anion Gap 11, Blood Urea Nitrogen 12, Creatinine 0.70, Estimat Glomerular Filtration Rate > 60, BUN/ Creatinine Ratio 17, Glucose Level 90, Calcium Level 9.3 01/28/18 07:15: White Blood Count 3.7, Red Blood Count 4.05, Hemoglobin 11.9, Hematocrit 35, Mean Corpuscular Volume 87, Mean Corpuscular Hemoglobin 29, Mean Corpuscular Hemoglobin Concent 34, Red Cell Distribution Width 12.8, Platelet Count 148, Mean Platelet Volume 9.8, Neutrophils (%) (Auto) 47, Lymphocytes (%) (Auto) 41, Monocytes (%) (Auto) 10, Eosinophils (%) (Auto) 2, Basophils (%) (Auto) 1, Neutrophils # (Auto) 1.7, Lymphocytes # (Auto) 1.5, Monocytes # (Auto) 0.4, Eosinophils # (Auto) 0.1, Basophils # (Auto) 0.0, Sodium Level 144, Potassium Level 3.9, Chloride Level 108, Carbon Dioxide Level 26, Anion Gap 10, Blood Urea Nitrogen 13, Creatinine 0.75, Estimat Glomerular Filtration Rate > 60, BUN/ Creatinine Ratio 17, Glucose Level 92, Calcium Level 9.5, Corrected Calcium 9.3 , Total Bilirubin 1.0, Aspartate Amino Transf (AST/SGOT) 26, Alanine Aminotransferase (ALT/SGPT) 18, Alkaline Phosphatase 62, Total Protein 6.5, Albumin 4.2 Discharge Home Medications: Active Scripts Active Cefdinir 300 Mg Capsule 300 Mg PO BID 5 Days Reported Promethazine Tablet (Promethazine HCl) 25 Mg Tablet 25 Mg PO Q6H PRN Oxycodone HCl 5 Mg Tablet 5 Mg PO HS PRN Hydrocodone-Acetamin 5-325 mg (Hydrocodone/Acetaminophen) 1 Each Tablet 0.5 Tab PO Q6H PRN Advil (Ibuprofen) 200 Mg Tablet 600 Mg PO TID PRN Tums (Calcium Carbonate) 300 Mg Tab.chew 300 Mg PO TID PRN Quetiapine Fumarate 25 Mg Tablet 12.5 Mg PO HS PRN Metoprolol Succinate 50 Mg Tab.er.24h 50 Mg PO DAILY Losartan Potassium 100 Mg Tablet 100 Mg PO DAILY Ropinirole HCl 4 Mg Tablet 4 Mg PO 0830,1330,1830 Simvastatin 20 Mg Tablet 20 Mg PO HS Amitriptyline HCl 25 Mg Tablet 25 Mg PO HS Instructions to patient/family Please see electronic discharge instructions given to patient. Clinical Quality Measures DVT/VTE Risk/Contraindication: Risk Factor Score Per Nursin RFS Level Per Nursing on Admit: 3=High FILEMON PERALTA DO Jan 29, 2018 07:24
== END 2018-01-28 18:00 | disposition home or self-care (01) | DRG 871 ==
LOC: EDUNIT# 10:45 → ER 10:46 → UNDOADMIN 13:12 → 4TH 13:12
PROVIDERS: ADMIT Family Medicine; ATTEND Family Medicine
DX: A41.89 Other specified sepsis (principal); J18.1 Lobar pneumonia, unspecified organism; D61.818 Other pancytopenia; E87.6 Hypokalemia; I10 Essential (primary) hypertension; G20 Parkinson's disease; M41.25 Other idiopathic scoliosis, thoracolumbar region; K21.9 Gastro-esophageal reflux disease without esophagitis; H02.844 Edema of left upper eyelid; H02.841 Edema of right upper eyelid; R60.0 Localized edema; Z87.11 Personal history of peptic ulcer disease; Z91.81 History of falling
CPT/HCPCS: 36415; 51701; 71045; 71046; 80048; 80053; 81000; 83605; 83880; 84439; 84443; 84484; 85007; 85025; 85027; 87040; 87077; 87186; 87804; 93005; 94760; 96365

== ENCOUNTER 2018-03-11 12:55 | Emergency (ER) | payer MEDICARE, OTHER ==
[~2018-03-11] VITALS: Ht 157.5 cm; Wt 68.0 kg
[~2018-03-11 12:55] MED LIST changes: +AMIT25TA9 PO; +CALC300T4 PO; +CEFD300C3 PO; +HYDR-3812 PO; +IBUP-30 PO; +LOSA100T8 PO; +METO-370 PO; +OXYC-529 PO; +PROM25TA14 PO; +QUET25TA73 PO; +ROPI4TAB5 PO
[2018-03-11 13:34] LABS: BASOPHILS % (AUTO) 0 % (0-10); EOSINOPHILS % (AUTO) 0 % (0-10); HEMATOCRIT 33 % (35-52); HEMOGLOBIN 11.5 G/DL (11.5-16.0); LYMPHOCYTES # (AUTO) 0.8 X 10^3 (1.0-4.0); LYMPHOCYTES % (AUTO) 11 % (12-44); MEAN CORPUSCULAR HEMOGLOBIN 30 PG (25-34); MEAN CORPUSCULAR HGB CONC 35 G/DL (32-36); MEAN CORPUSCULAR VOLUME 88 FL (80-99); MEAN PLATELET VOLUME 10.1 FL (7.4-10.4); MONOCYTES # (AUTO) 0.5 X 10^3 (0.0-1.0); MONOCYTES % (AUTO) 7 % (0-12); NEUTROPHILS # (AUTO) 5.6 X 10^3 (1.8-7.8); NEUTROPHILS % (AUTO) 81 % (42-75); PLATELET COUNT 175 10^3/uL (130-400); RED BLOOD COUNT 3.79 10^6/uL (4.35-5.85); RED CELL DISTRIBUTION WIDTH 13.4 % (10.0-14.5); WHITE BLOOD COUNT 6.9 10^3/uL (4.3-11.0)
--- NOTE | 2018-03-11 13:36 | ED Chest Pain ---
General Stated Complaint: CHEST PAIN;POSS BLOOD CLOT Source: patient Exam Limitations: no limitations History of Present Illness Date Seen by Provider: Mar 11, 2018 Time Seen by Provider: 13:35 Initial Comments To ER from Dr. Tsang's office with reports of chest pain. This began this morning at 7:30 while she was eating breakfast. It lasted for about 2-3 minutes , spread beneath each of her breasts before resolving spontaneously. She has no symptoms at this time. She gets these episodes once every 2-3 months. She has seen Dr. Ackerman for this and was told he could not find anything as far as a cardiac cause that would account for this. She does have some slight shortness of breath. No fevers or chills. No cough. No nausea. She denies any association of this pain with things like activity. Timing/Duration: intermittent Severity/Quality: moderate Location: central Radiation: no radiation Activities at Onset: none ASA po STACKING MACHINE OPERATOR: No NTG SL STACKING MACHINE OPERATOR: No (Oh. I do not want) Allergies and Home Medications Allergies Coded Allergies: codeine (Verified Allergy, Unknown, 09/04/17) Home Medications Amitriptyline HCl 25 Mg Tablet, 25 MG PO HS, (Reported) Calcium Carbonate 300 Mg Tab.chew, 300 MG PO TID PRN for HEARTBURN, (Reported) Cefdinir 300 Mg Capsule, 300 MG PO BID Prescribed by: FILEMON PERALTA on 01/28/18 0759 Hydrocodone/Acetaminophen 1 Each Tablet, 0.5 TAB PO Q6H PRN for PAIN-MODERATE, ( Reported) Ibuprofen 200 Mg Tablet, 600 MG PO TID PRN for PAIN-MILD, (Reported) Metoprolol Succinate 50 Mg Tab.er.24h, 50 MG PO DAILY, (Reported) Olmesartan Medoxomil 20 Mg Tablet, 20 MG PO DAILY, (Reported) Oxycodone HCl 5 Mg Tablet, 5 MG PO HS PRN for PAIN-SEVERE, (Reported) Promethazine HCl 25 Mg Tablet, 25 MG PO Q6H PRN for NAUSEA/VOMITING-1ST LINE, ( Reported) Quetiapine Fumarate 25 Mg Tablet, 12.5 MG PO HS PRN for HALLUCINATIONS, ( Reported) Ropinirole HCl 4 Mg Tablet, 4 MG PO 0830,1330,1830, (Reported) Simvastatin 20 Mg Tablet, 20 MG PO HS, (Reported) Patient Home Medication List Home Medication List Reviewed: Yes Review of Systems Review of Systems Constitutional: see HPI; No chills, No fever EENTM: No Symptoms Reported Respiratory: See HPI; Denies Cough; Shortness of Air Cardiovascular: See HPI, Chest Pain Gastrointestinal: No Symptoms Reported Genitourinary: No Symptoms Reported Musculoskeletal: no symptoms reported Skin: no symptoms reported Psychiatric/Neurological: No Symptoms Reported Endocrine: No Symptoms Reported Past Lafnoxb-Rkdxxs-[id number] Hx Patient Social History Recent Hopitalizations: Yes (BACK SX) Immunizations Up To Date Date of Pneumonia Vaccine: Jan 08, 2017 Date of Influenza Vaccine: Nov 28, 2017 Seasonal Allergies Seasonal Allergies: No Past Medical History Surgeries: Yes (CARPAL TUNNEL, BACK) Hysterectomy, Tonsillectomy Respiratory: No Cardiac: Yes Hypertension Neurological: Yes Parkinson's Disease Reproductive Disorders: No Genitourinary: No Gastrointestinal: Yes (ULCERS) Gastroesophageal Reflux, Ulcer Musculoskeletal: No Endocrine: No HEENT: No Cancer: No Psychosocial: No Integumentary: No Blood Disorders: No Family Medical History No Pertinent Family Hx Physical Exam Vital Signs Vital Signs - First Documented 03/11/18 03/11/18 13:44 13:46 Temp 98.7 Pulse 67 Resp 20 B/P (MAP) 173/81 (111) Pulse Ox 98 O2 Delivery Room Air Capillary Refill : Height, Weight, BMI Height: 5'2.00" Weight: 156lbs. 8.0oz. 70.314927dn; 28.6 BMI Method:Stated General Appearance: No Apparent Distress, WD/WN HEENT: PERRL/EOMI, TMs Normal Neck: Full Range of Motion, Normal Inspection Respiratory: Chest Non Tender, Normal Breath Sounds, No Accessory Muscle Use, No Respiratory Distress Cardiovascular: Regular Rate, Rhythm, Normal Peripheral Pulses Gastrointestinal: Normal Bowel Sounds, Non Tender, Soft Extremity: Normal Capillary Refill, Normal Inspection Neurologic/Psychiatric: Alert, Oriented x3 Skin: Normal Color, Warm/Dry Progress/Results/Core Measures Results/Orders Lab Results Laboratory Tests Test 03/11/18 13:26 Range/Units White Blood Count 6.9 4.3-11.0 10^3/uL Red Blood Count 3.79 L 4.35-5.85 10^6/uL Hemoglobin 11.5 11.5-16.0 G/DL Hematocrit 33 L 35-52 % Mean Corpuscular Volume 88 80-99 FL Mean Corpuscular Hemoglobin 30 25-34 PG Mean Corpuscular Hemoglobin Concent 35 32-36 G/DL Red Cell Distribution Width 13.4 10.0-14.5 % Platelet Count 175 130-400 10^3/uL Mean Platelet Volume 10.1 7.4-10.4 FL Neutrophils (%) (Auto) 81 H 42-75 % Lymphocytes (%) (Auto) 11 L 12-44 % Monocytes (%) (Auto) 7 0-12 % Eosinophils (%) (Auto) 0 0-10 % Basophils (%) (Auto) 0 0-10 % Neutrophils # (Auto) 5.6 1.8-7.8 X 10^3 Lymphocytes # (Auto) 0.8 L 1.0-4.0 X 10^3 Monocytes # (Auto) 0.5 0.0-1.0 X 10^3 Eosinophils # (Auto) 0.0 0.0-0.3 10^3/uL Basophils # (Auto) 0.0 0.0-0.1 10^3/uL Prothrombin Time 12.7 12.2-14.7 SEC INR Comment 1.0 0.8-1.4 Activated Partial Thromboplast Time 23 L 24-35 SEC Sodium Level 142 135-145 MMOL/L Potassium Level 3.9 3.6-5.0 MMOL/L Chloride Level 103 98-107 MMOL/L Carbon Dioxide Level 25 21-32 MMOL/L Anion Gap 14 5-14 MMOL/L Blood Urea Nitrogen 20 H 7-18 MG/DL Creatinine 0.86 0.60-1.30 MG/DL Estimat Glomerular Filtration Rate > 60 BUN/Creatinine Ratio 23 Glucose Level 105 70-105 MG/DL Calcium Level 9.9 8.5-10.1 MG/DL Corrected Calcium 8.5-10.1 MG/DL Magnesium Level 2.5 H 1.8-2.4 MG/DL Total Bilirubin 1.2 H 0.1-1.0 MG/DL Aspartate Amino Transf (AST/SGOT) 22 5-34 U/L Alanine Aminotransferase (ALT/SGPT) 18 0-55 U/L Alkaline Phosphatase 73 40-136 U/L Myoglobin 80.8 10.0-92.0 NG/ML Troponin I < 0.028 <0.028 NG/ML B-Type Natriuretic Peptide 245.5 H <100.0 PG/ML Total Protein 7.7 6.4-8.2 GM/DL Albumin 4.8 H 3.2-4.5 GM/DL My Orders Orders - YOUSUF LOPEZ APRN Cbc With Automated Diff (03/11/18 13:01) Magnesium (03/11/18 13:01) Chest 1 View, Ap/Pa Only (03/11/18 13:01) Ekg Tracing (03/11/18 13:01) Cardiac Profile 1 (03/11/18 13:01) Comprehensive Metabolic Panel (03/11/18 13:01) Myoglobin Serum (03/11/18 13:01) Protime With Inr (03/11/18 13:01) Partial Thromboplastin Time (03/11/18 13:01) O2 (03/11/18 13:01) Monitor-Rhythm Ecg Trace Only (03/11/18 13:01) Lipid Panel (03/12/18 06:00) Saline Lock/Iv-Start (03/11/18 13:01) BNP (03/11/18 13:01) Ct Angio Chest W (03/11/18 13:57) Iohexol Injection (Omnipaque 350 Mg/Ml 1 (03/11/18 14:15) Contrast Received (Contrast Received) (03/11/18 14:15) Ns (Ivpb) (Sodium Chloride 0.9% Ivpb Bag (03/11/18 14:15) Ns Iv 500 Ml (Sodium Chloride 0.9%) (03/11/18 14:15) Vital Signs/I&O 03/11/18 03/11/18 13:44 13:46 Temp 98.7 Pulse 67 Resp 20 B/P (MAP) 173/81 (111) Pulse Ox 98 O2 Delivery Room Air Room Air Diagnostic Imaging Diagonstic Imaging: Xray Plain Films/CT/US/NM/MRI: chest Comments NAME: PARRIS NELSON [facility] REC#: [id number] PT STATUS: REG ER : 1945 PHYSICIAN: YOUSUF LOPEZ APRN ADMIT DATE: 03/11/18/ER Draft Date of Exam:03/11/18 CHEST 1 VIEW, AP/PA ONLY Indication: Chest pain. Time of exam: 1:28 PM Correlation is made with prior study from 01/24/2018. Minimal linear scarring or atelectasis in left base is noted. Otherwise the lungs are clear. The pulmonary vascularity is normal. No infiltrate, effusion or pneumothorax is detected. Impression: No acute cardiopulmonary process is identified. Dictated on workstation # [id number] Dict: 03/11/18 1336 Trans: 03/11/18 1342 [id number] [id number] Interpreted by: JEFERSON CORRALES MD Electronically signed by: NAME: PARRIS NELSON [facility] REC#: [id number] PT STATUS: REG ER : 1945 PHYSICIAN: YOUSUF LOPEZ APRN ADMIT DATE: 03/11/18/ER Draft Date of Exam:03/11/18 CT ANGIO CHEST W PROCEDURE: CT angiography of the chest with contrast. TECHNIQUE: Multiple contiguous axial images were obtained through the chest after uneventful bolus administration of intravenous contrast. 2D reconstructed CTA MIP acquisitions were also performed. INDICATION: Chest pain and shortness of air. COMPARISON: No prior studies are available for comparison. FINDINGS: Evaluation of the pulmonary arterial system is without evidence of thromboembolism. No filling defects are seen within central, lobar or segmental branches. The thoracic aorta is ectatic and tortuous. No dissection is seen. No pericardial or pleural fluid is identified. There is a large hiatal hernia noted. No axillary lymphadenopathy is seen. No definite mediastinal or hilar lymphadenopathy is detected. Parenchymal evaluation does show some areas of subsegmental atelectasis in the right middle lobe and lingula as well as left lower lobe. No infiltrate or mass is seen. Upper abdomen is unremarkable. IMPRESSION: 1. No evidence of pulmonary embolism or thoracic aortic dissection. 2. Large hiatal hernia. 3. Bibasilar subsegmental atelectasis versus scarring. Dictated on workstation # [id number] Dict: 03/11/18 1437 Trans: 03/11/18 1446 IMS [id number] Interpreted by: JEFERSON CORRALES MD Electronically signed by: Departure Impression Primary Impression: Chest pain Qualified Codes: R07.9 - Chest pain, unspecified Disposition: 01 HOME, SELF-CARE Condition: Stable Departure-Patient Inst. Decision time for Depature: 14:50 Referrals: FILEMON PERALTA DO (PCP/Family) Primary Care Physician Patient Instructions: Chest Pain (DC) Add. Discharge Instructions: 1. Return to ER for any concerns 2. Follow-up with your doctor next week 3. Copy Copies To 1: FILEMON PERALTA PETER J APRN Mar 11, 2018 13:36
--- NOTE | 2018-03-11 13:43 | Diagnostic Imaging Report ---
Indication: Chest pain. Time of exam: 1:28 PM Correlation is made with prior study from 01/24/2018. Minimal linear scarring or atelectasis in left base is noted. Otherwise the lungs are clear. The pulmonary vascularity is normal. No infiltrate, effusion or pneumothorax is detected. Impression: No acute cardiopulmonary process is identified. Dictated by: Dictated on workstation # [id number]
[2018-03-11 13:48] LABS: PROTHROMBIN TIME PATIENT 12.7 SEC (12.2-14.7)
[2018-03-11 13:54] LABS: ALANINE AMINOTRANSFERASE 18 U/L (0-55); ALBUMIN 4.8 GM/DL (3.2-4.5); ALKALINE PHOSPHATASE 73 U/L (40-136); BILIRUBIN,TOTAL 1.2 MG/DL (0.1-1.0); BUN/CREATININE RATIO 23; CALCIUM 9.9 MG/DL (8.5-10.1); CARBON DIOXIDE 25 MMOL/L (21-32); CHLORIDE 103 MMOL/L (98-107); CREATININE SERUM 0.86 MG/DL (0.60-1.30); GFR ESTIMATED > 60; GLUCOSE 105 MG/DL (70-105); MAGNESIUM 2.5 MG/DL (1.8-2.4); POTASSIUM 3.9 MMOL/L (3.6-5.0); SODIUM 142 MMOL/L (135-145); TOTAL PROTEIN 7.7 GM/DL (6.4-8.2)
[2018-03-11] MEDS ORDERED: OLME20TA21 PO (13:54)
[2018-03-11 14:02] LABS: MYOGLOBIN SERUM 80.8 NG/ML (10.0-92.0)
[2018-03-11] MEDS ORDERED: RECEIVED CONTRAST (Hold Metformin) IV SCH (14:15)
[2018-03-11] MEDS ORDERED: NS 100 ML (IVPB) BAG IV ONE (14:15)
[2018-03-11] MEDS ORDERED: IOHEXOL 350 MG/ML 150 ML (OMNIPAQUE 350) VIAL IV ONE (14:15)
[2018-03-11] MEDS ORDERED: NS IV 500 ML 500 ML IV SCH (14:15)
--- NOTE | 2018-03-11 14:46 | Diagnostic Imaging Report ---
PROCEDURE: CT angiography of the chest with contrast. TECHNIQUE: Multiple contiguous axial images were obtained through the chest after uneventful bolus administration of intravenous contrast. 2D reconstructed CTA MIP acquisitions were also performed. INDICATION: Chest pain and shortness of air. COMPARISON: No prior studies are available for comparison. FINDINGS: Evaluation of the pulmonary arterial system is without evidence of thromboembolism. No filling defects are seen within central, lobar or segmental branches. The thoracic aorta is ectatic and tortuous. No dissection is seen. No pericardial or pleural fluid is identified. There is a large hiatal hernia noted. No axillary lymphadenopathy is seen. No definite mediastinal or hilar lymphadenopathy is detected. Parenchymal evaluation does show some areas of subsegmental atelectasis in the right middle lobe and lingula as well as left lower lobe. No infiltrate or mass is seen. Upper abdomen is unremarkable. IMPRESSION: 1. No evidence of pulmonary embolism or thoracic aortic dissection. 2. Large hiatal hernia. 3. Bibasilar subsegmental atelectasis versus scarring. Dictated by: Dictated on workstation # [id number]
[2018-03-11 15:09] VITALS: BP 154/75
--- OUTSIDE RECORDS SUMMARY | 2018-03-11 22:36 | XMS REPORT | Continuity of Care Document ---
Author Author [facility] Organization [facility] Address Unknown Phone Unavailable Allergies Active Description Code Type Severity Reaction Onset Reported/Identified Relationship to Patient Clinical Status Yes codeine [id number] Drug Allergy Unknown N/A 09/04/2017 Medications There [...] WITH SCIATICA, LEFT SIDE 08/11/2015 GELLENDER DO, FIELMON Johnson Ot 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, LUMBAR [...] MD Ot I25.10 ATHSCL HEART DISEASE OF [place] CORONARY 12/28/2015 ANA MARIA LI MD Ot I44.4 LEFT ANTERIOR FASCICULAR BLOCK 12/31/2015 ANA MARIA LI MD Ot E78.2 MIXED HYPERLIPIDEMIA 12/31/2015 ANA MARIA LI MD Ot I10 ESSENTIAL (PRIMARY) HYPERTENSION 12/31/2015 ANA MARIA LI MD Ot I25.10 ATHSCL HEART DISEASE OF [place] CORONARY 12/31/2015 ANA MARIA LI MD Ot I44.4 LEFT ANTERIOR FASCICULAR BLOCK 01/18/2016 ANA MARIA LI MD Ot E78.2 MIXED HYPERLIPIDEMIA 01/18/2016 ANA MARIA LI MD Ot I10 ESSENTIAL (PRIMARY) HYPERTENSION 01/18/2016 ANA MARIA LI MD Ot I25.10 ATHSCL HEART DISEASE OF [place] CORONARY 01/18/2016 ANA MARIA LI MD Ot I44.4 LEFT ANTERIOR FASCICULAR BLOCK 01/24/2016 ANA MARIA LI MD Ot E78.2 MIXED HYPERLIPIDEMIA 01/24/2016 ANA MARIA LI MD Ot I10 ESSENTIAL (PRIMARY) HYPERTENSION 01/24/2016 ANA MARIA LI MD Ot I25.10 ATHSCL HEART DISEASE OF [place] CORONARY 01/24/2016 ANA MARIA LI MD Ot I44.4 LEFT ANTERIOR FASCICULAR BLOCK 02/26/2016 YOUSUF LOPEZ APRN Ot I10 ESSENTIAL (PRIMARY) HYPERTENSION 02/26/2016 YOUSUF LOPEZ APRN Ot N93.9 ABNORMAL UTERINE AND VAGINAL BLEEDING, U 02/26/2016 YOUSUF LOPEZ APRN Ot Z79.899 OTHER HALFWAY (CURRENT) DRUG THERAPY 02/26/2016 YOUSUF LOPEZ MANAGER [employer] Ot Z90.710 ACQUIRED ABSENCE OF BOTH CERVIX AND UTER 02/29/2016 YOUSUF LOPEZ MANAGER [employer] Ot I10 ESSENTIAL (PRIMARY) HYPERTENSION 02/29/2016 YOUSUF LOPEZ APRN Ot N93.9 ABNORMAL UTERINE AND VAGINAL BLEEDING, U 02/29/2016 YOUSUF LOPEZ APRN Ot 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 02/29/2016 YOUSUF LOPEZ APRN [...] MD Ot I25.10 ATHSCL HEART DISEASE OF [place] CORONARY 06/18/2017 ANA MARIA LI MD Ot I44.4 LEFT ANTERIOR FASCICULAR BLOCK 06/28/2017 ANA MARIA LI MD Ot E78.2 MIXED HYPERLIPIDEMIA 06/28/2017 ANA MARIA LI MD Ot I10 ESSENTIAL (PRIMARY) HYPERTENSION 06/28/2017 ANA MARIA LI MD Ot I25.10 ATHSCL HEART DISEASE OF [place] CORONARY 06/28/2017 ANA MARIA LI MD Ot I44.4 LEFT ANTERIOR FASCICULAR BLOCK 07/17/2017 ANA MARIA LI MD Ot E78.2 MIXED HYPERLIPIDEMIA 07/17/2017 ANA MARIA LI MD Ot I10 ESSENTIAL (PRIMARY) HYPERTENSION 07/17/2017 ANA MARIA LI MD Ot I25.10 ATHSCL HEART DISEASE OF [place] CORONARY 07/17/2017 ANA MARIA LI MD Ot I44.4 LEFT ANTERIOR FASCICULAR BLOCK 07/20/2017 ANA MARIA LI MD Ot E78.2 MIXED HYPERLIPIDEMIA 07/20/2017 ANA MARIA LI MD Ot I10 ESSENTIAL (PRIMARY) HYPERTENSION 07/20/2017 ANA MARIA LI MD Ot I25.10 ATHSCL HEART DISEASE OF [place] CORONARY 07/20/2017 ANA MARIA LI MD Ot I44.4 LEFT ANTERIOR FASCICULAR BLOCK 09/04/2017 GUANACO KESSLER MD Ot I10 ESSENTIAL (PRIMARY) HYPERTENSION 09/04/2017 GUANACO KESSLER MD Ot K21.9 GASTRO-ESOPHAGEAL REFLUX DISEASE WITHOUT 09/04/2017 GUANACO KESSLER MD Ot S20.221A CONTUSION OF RIGHT BACK WALL OF THORAX, 09/04/2017 GUANACO KESSLER MD Ot S22.41XA MULTIPLE FRACTURES OF RIBS, RIGHT SIDE, 09/04/2017 GUANACO KESSLER MD Ot W06.XXXA FALL FROM BED, INITIAL ENCOUNTER 09/04/2017 GUANACO KESSLER MD Ot Y92.[address] IN [facility] NON-INSTITUT (PRIVATE 09/04/2017 GUANACO KESSLER MD Ot Z88.5 ALLERGY STATUS TO NARCOTIC AGENT STATUS 09/04/2017 GUANACO KESSLER MD Ot Z90.710 ACQUIRED ABSENCE OF BOTH CERVIX AND UTER 09/04/2017 GUANACO KESSLER MD Ot Z90.89 ACQUIRED ABSENCE OF OTHER ORGANS 09/06/2017 GUANACO KESSLER MD Ot I10 ESSENTIAL [...] KESSLER MD Ot Y92.[address] [facility] (PRIVATE 09/06/2017 GUANACO KESSLER MD Ot Z88.5 ALLERGY STATUS TO NARCOTIC AGENT STATUS 09/06/2017 GUANACO KESSLER MD Ot Z90.710 ACQUIRED ABSENCE OF BOTH CERVIX AND UTER 09/06/2017 GUANACO KESSLER MD Ot Z90.89 ACQUIRED ABSENCE OF OTHER ORGANS 09/20/2017 GUANACO KESSLER MD Ot I10 ESSENTIAL (PRIMARY) HYPERTENSION 09/20/2017 GUANACO KESSLER MD, Ot K21.9 GASTRO-ESOPHAGEAL REFLUX DISEASE WITHOUT 09/20/2017 GUANACO KESSLER MD Ot S20.221A CONTUSION OF RIGHT BACK WALL OF THORAX, 09/20/2017 GUANACO KESSLER MD Ot S22.41XA MULTIPLE FRACTURES OF RIBS, RIGHT SIDE, 09/20/2017 GUANACO KESSLER MD Ot W06.XXXA FALL FROM BED, INITIAL ENCOUNTER 09/20/2017 GUANACO KESSLER MD Ot Y92.[address] IN [facility] NONINSTITUT (PRIVATE 09/20/2017 GUANACO KESSLER MD Ot Z88.5 ALLERGY STATUS TO NARCOTIC AGENT STATUS 09/20/2017 GUANACO KESSLER MD Ot Z90.710 ACQUIRED ABSENCE OF BOTH CERVIX AND UTER 09/20/2017 GUANACO KESSLER MD Ot Z90.89 ACQUIRED ABSENCE OF OTHER ORGANS 10/31/2017 FILEMON PERALTA DO Ot K44.9 DIAPHRAGMATIC HERNIA WITHOUT OBSTRUCTION 10/31/2017 FILEMON PERALTA DO Ot K76.89 OTHER SPECIFIED DISEASES OF LIVER 10/31/2017 GELLENDER DO, FILEMON Johnson Ot N28.9 DISORDER OF KIDNEY AND URETER, UNSPECIFI 11/23/2017 GELLENDER DO, FILEMON Johnson Ot K44.9 DIAPHRAGMATIC HERNIA WITHOUT OBSTRUCTION 11/23/2017 GELLENDER DO, FILEMON Johnson Ot K76.89 OTHER SPECIFIED DISEASES OF LIVER 11/23/2017 GELLENDER DO, FILEMON Johnson Ot N28.9 DISORDER OF KIDNEY AND URETER, UNSPECIFI 11/23/2017 GELLENDER DO, FILEMON Johnson Ot K44.9 DIAPHRAGMATIC HERNIA WITHOUT OBSTRUCTION 11/23/2017 GELLENDER DO, FILEMON Johnson Ot K76.89 OTHER SPECIFIED DISEASES OF LIVER 11/23/2017 GELLENDER DO, FILEMON Johnson Ot N28.9 DISORDER OF KIDNEY AND URETER, UNSPECIFI 01/28/2018 GELLENDER DO, FILEMON Johnson Ot A41.89 OTHER SPECIFIED SEPSIS 01/28/2018 GELLENDER DO, FILEMON Johnson Ot D61.818 OTHER PANCYTOPENIA 01/28/2018 GELLENDER DO, FILEMON Johnson Ot E87.6 HYPOKALEMIA 01/28/2018 GELLENDER DO, FILEMON Johnson Ot G20 PARKINSON'S DISEASE 01/28/2018 GELLENDER DO, FILEMON Johnson Ot H02.841 EDEMA OF RIGHT UPPER EYELID 01/28/2018 GELLENDER DO, FILEMON Johnson Ot H02.844 EDEMA OF LEFT UPPER EYELID 01/28/2018 GELLENDER DO, FILEMON Johnson Ot I10 ESSENTIAL (PRIMARY) HYPERTENSION 01/28/2018 GELLENDER DO, FILEMON Johnson Ot J18.1 LOBAR PNEUMONIA, UNSPECIFIED ORGANISM 01/28/2018 GELLENDER DO, FILEMON Johnson Ot K21.9 GASTRO-ESOPHAGEAL REFLUX DISEASE WITHOUT 01/28/2018 GELLENDER DO, FILEMON Johnson Ot M41.25 OTHER IDIOPATHIC SCOLIOSIS, THORACOLUMBA 01/28/2018 GELLENDER DO, FILEMON Johnson Ot R40.2412 DAVID COMA SCALE SCORE 13-15, EMR 01/28/2018 GELLENDER DO, FILEMON Johnson Ot R60.0 LOCALIZED EDEMA 01/28/2018 GELLENDER DO, FILEMON Johnson Ot Z87.11 PERSONAL HISTORY OF PEPTIC ULCER DISEASE 01/28/2018 GELLENDER DO, FILEMON Johnson Ot Z91.81 HISTORY OF FALLING 03/11/2018 GELLENDER DO, FILEMON Johnson Ot M54.5 LOW BACK PAIN 03/11/2018 KATHRYN DUFF, FILEMON Alex Ot M25.552 PAIN IN LEFT HIP 03/11/2018 KATHRYN DUFF, FILEMON Johnson Ot M54.9 DORSALGIA, UNSPECIFIED 03/11/2018 KATHRYN DUFF, FILEMON Johnson Ot M54.9 DORSALGIA, UNSPECIFIED 03/11/2018 KATHRYN DUFF, FILEMON Alex Ot N28.9 DISORDER OF KIDNEY AND URETER, UNSPECIFI 03/11/2018 KATHRYN DUFFFILEMON Ot K56.69 OTHER INTESTINAL OBSTRUCTION 03/11/2018 KATHRYN DUFF, FILEMON Johnson Ot 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, LUMBAR REGIO 03/11/2018 KATHRYN DUFFFILEMON Ot M43.16 SPONDYLOLISTHESIS, LUMBAR REGION 03/11/2018 KATHRYN DUFFFILEMON Ot M51.16 INTERVERTEBRAL DISC DISORDERS W RADICULO 03/11/2018 ANA MARIA LI MD Ot E78.2 MIXED HYPERLIPIDEMIA 03/11/2018 ANA MARIA LI MD Ot I10 ESSENTIAL (PRIMARY) HYPERTENSION 03/11/2018 ANA MARIA LI MD Ot I25.10 ATHSCL HEART DISEASE OF [place] CORONARY 03/11/2018 ANA MARIA LI MD Ot I44.4 LEFT ANTERIOR FASCICULAR BLOCK 03/11/2018 ANA MARIA LI MD Ot E78.2 MIXED HYPERLIPIDEMIA 03/11/2018 GUILLERMO MALCOLM, ANA MARIA J Ot I10 ESSENTIAL (PRIMARY) HYPERTENSION 03/11/2018 ANA MARIA LI MD Ot I25.10 ATHSCL HEART DISEASE OF [place] CORONARY 03/11/2018 ANA MARIA LI MD Ot I44.4 LEFT ANTERIOR FASCICULAR BLOCK 03/11/2018 KATHRYN DUFFFILEMON Ot K44.9 DIAPHRAGMATIC HERNIA WITHOUT OBSTRUCTION 03/11/2018 KATHRYN DUFFFILEMON Ot K76.89 OTHER SPECIFIED DISEASES OF LIVER 03/11/2018 KATHRYN DUFFFILEMON Ot N28.9 DISORDER OF KIDNEY AND URETER, [...] g/dL 3.2-4.5 CALCIUM CORRECTED 9.6 mg/dL 8.5-10.1 Complete blood count (CBC) with automated white blood cell (WBC) differential - 01/23/18 11:06 Blood leukocytes automated count (number/volume) 3.9 10*3/uL 4.3-11.0 Blood erythrocytes automated count (number/volume) 4.02 10*6/uL 4.35-5.85 Venous blood hemoglobin measurement (mass/volume) 12.1 g/dL 11.5-16.0 Blood hematocrit (volume fraction) 35 % 35-52 Automated erythrocyte mean corpuscular volume 88 [foz_us] 80-99 Automated erythrocyte mean corpuscular hemoglobin (mass per erythrocyte) 30 pg 25-34 Automated erythrocyte mean corpuscular hemoglobin concentration measurement ( mass/volume) 34 g/dL 32-36 Automated erythrocyte distribution width ratio 13.1 % 10.0-14.5 Automated blood platelet count (count/volume) 132 10*3/uL 130-400 Automated blood platelet mean volume measurement 10.0 [foz_us] 7.4-10.4 Automated blood neutrophils/100 leukocytes 88 % 42-75 Automated blood lymphocytes/100 leukocytes 6 % 12-44 Blood monocytes/100 leukocytes 5 % 0-12 Automated blood eosinophils/100 leukocytes 1 % 0-10 Automated blood basophils/100 leukocytes 0 % 0-10 Blood neutrophils automated count (number/volume) 3.5 10*3 1.8-7.8 Blood lymphocytes automated count (number/volume) 0.3 10*3 1.0-4.0 Blood monocytes automated count (number/volume) 0.2 10*3 0.0-1.0 Automated eosinophil count 0.0 10*3/uL 0.0-0.3 Automated blood basophil count (count/volume) 0.0 10*3/uL 0.0-0.1 Blood lactic acid measurement (moles/volume) - 01/23/18 11:06 Blood lactic acid measurement (moles/volume) 0.86 mmol/L 0.50-2.00 Comprehensive metabolic panel - 01/23/18 11:06 Serum or plasma sodium measurement (moles/volume) 139 mmol/L 135-145 Serum or plasma potassium measurement (moles/volume) 3.9 mmol/L 3.6-5.0 Serum or plasma chloride measurement (moles/volume) 105 mmol/L 98-107 Carbon dioxide 22 mmol/L 21-32 Serum or plasma anion gap determination (moles/volume) 12 mmol/L 5-14 Serum or plasma urea nitrogen measurement (mass/volume) 28 mg/dL 7-18 Serum or plasma creatinine measurement (mass/volume) 0.82 mg/dL 0.60-1.30 Serum or plasma urea nitrogen/creatinine mass ratio 34 NRG Serum or plasma creatinine measurement with calculation of estimated glomerular filtration rate > NRG Serum or plasma glucose measurement (mass/volume) 115 mg/dL 70-105 Serum or plasma calcium measurement (mass/volume) 9.2 mg/dL 8.5-10.1 Serum or plasma total bilirubin measurement (mass/volume) 1.8 mg/dL 0.1-1.0 Serum or plasma alkaline phosphatase measurement (enzymatic activity/volume) 64 U/L 40-136 Serum or plasma aspartate aminotransferase measurement (enzymatic activity/ volume) 23 U/L 5-34 Serum or plasma alanine aminotransferase measurement (enzymatic activity/volume ) 13 U/L 0-55 Serum or plasma protein measurement (mass/volume) 7.0 g/dL 6.4-8.2 Serum or plasma albumin measurement (mass/volume) 4.2 g/dL 3.2-4.5 CALCIUM CORRECTED 9.0 mg/dL 8.5-10.1 Blood manual differential performed detection - 01/23/18 11:06 Blood monocytes/100 leukocytes 1 % NRG Manual blood segmented neutrophils/100 leukocytes 87 % NRG Blood band neutrophils/100 leukocytes 2 % NRG Manual blood lymphocytes/100 leukocytes 7 % NRG Manual eosinophils/100 leukocytes in nose 0 % NRG Manual blood basophils/100 leukocytes 0 % NRG Blood lymphocytes variant/100 leukocytes 3 % NRG Blood ovalocytes detection by light microscopy SLIGHT NRG Blood toxic granules detection by light microscopy 1+ NRG Blood poikilocytosis detection by light microscopy SLIGHT NRG Blood rouleaux detection by light microscopy SLIGHT NRG Serum or plasma lithium measurement (moles/volume) - 01/23/18 11:06 BNP level 143.6 pg/mL <100.0 Serum or plasma troponin i.cardiac measurement (mass/volume) - 01/23/18 11:06 Serum or plasma troponin i.cardiac measurement (mass/volume) < ng/ mL <0.30 THYROID STIMULATING HORMONE - 01/23/18 11:06 THYROID STIMULATING HORMONE 0.79 u[iU]/mL 0.35-4.94 Serum or plasma thyroxine (T4) free measurement (mass/volume) - 01/23/18 11:06 Serum or plasma thyroxine (T4) free measurement (mass/volume) 0.96 ng/dL 0.70-1.48 Complete urinalysis with reflex to culture - 01/23/18 11:06 Urine color determination YELLOW NRG Urine clarity determination CLEAR NRG Urine pH measurement by test strip 5 5-9 Specific gravity of urine by test strip 1.015 1.016- 1.022 Urine protein assay by test strip, semi-quantitative 1+ NEGATIVE Urine glucose detection by automated test strip NEGATIVE NEGATIVE Erythrocytes detection in urine sediment by light microscopy 2+ NEGATIVE Urine ketones detection by automated test strip NEGATIVE NEGATIVE Urine nitrite detection by test strip NEGATIVE NEGATIVE Urine total bilirubin detection by test strip NEGATIVE NEGATIVE Urine urobilinogen measurement by automated test strip (mass/volume) NORMAL NORMAL Urine leukocyte esterase detection by dipstick NEGATIVE NEGATIVE Automated urine sediment erythrocyte count by microscopy (number/high power field) [HPF] NRG Automated urine sediment leukocyte count by microscopy (number/high power field ) [HPF] NRG Bacteria detection in urine sediment by light microscopy TRACE NRG Squamous epithelial cells detection in urine sediment by light microscopy 0-2 NRG Crystals detection in urine sediment by light microscopy NONE NRG Casts detection in urine sediment by light microscopy PRESENT NRG Mucus detection in urine sediment by light microscopy MODERATE NRG Complete urinalysis with reflex to culture NO NRG Hyaline casts detection in urine sediment by light microscopy 0-2 NRG Renal epithelial cells detection in urine sediment by light microscopy NONE NRG Bacterial blood culture - 01/23/18 11:06 FREE TEXT EXTERNAL SUSCEPTIBILITY REPORTED 01-26-2018, 09 NR QUANTITY OF GROWTH Isolated [facility] Bacterial blood culture [id number] [facility] - 01/23/18 11:06 Gentamicin susceptibility test by minimum inhibitory concentration < = NRG Trimethoprim/sulfamethoxazole susceptibility test by minimum inhibitoryconcentration <= NRG Levofloxacin susceptibility test by minimum inhibitory concentration <= NRG Ceftriaxone susceptibility test by minimum inhibitory concentration 8 NRG Ciprofloxacin susceptibility test by minimum inhibitory concentration S NRG Meropenem susceptibility test by minimum inhibitory concentration < = NRG Imipenem susceptibility test by minimum inhibitory concentration S [facility] Bacterial blood culture - 01/23/18 11:27 FREE TEXT EXTERNAL NO SUSCEPTIBILITY PERFORMED NR QUANTITY OF GROWTH . [facility] Bacterial blood culture SEE COMMEN [facility] Influenza virus A and B antigen detection - 01/23/18 11:34 FLU RESULT NEGATIVE FOR INFLUENZA A AND B ANTIGENS BY IA [facility] Complete blood count (CBC) with automated white blood cell (WBC) differential - 01/24/18 05:00 Blood leukocytes automated count (number/volume) 1.9 10*3/uL 4.3-11.0 Blood erythrocytes automated count (number/volume) 3.38 10*6/uL 4.35-5.85 Venous blood hemoglobin measurement (mass/volume) 9.9 g/dL 11.5-16.0 Blood hematocrit (volume fraction) 30 % 35-52 Automated erythrocyte mean corpuscular volume 88 [foz_us] 80-99 Automated erythrocyte mean corpuscular hemoglobin (mass per erythrocyte) 29 pg 25-34 Automated erythrocyte mean corpuscular hemoglobin concentration measurement ( mass/volume) 33 g/dL 32-36 Automated erythrocyte distribution width ratio 13.1 % 10.0-14.5 Automated blood platelet count (count/volume) 108 10*3/uL 130-400 Automated blood platelet mean volume measurement 9.9 [foz_us] 7.4-10.4 Automated blood neutrophils/100 leukocytes 64 % 42-75 Automated blood lymphocytes/100 leukocytes 24 % 12-44 Blood monocytes/100 leukocytes 11 % 0-12 Automated blood eosinophils/100 leukocytes 1 % 0-10 Automated blood basophils/100 leukocytes 0 % 0-10 Blood neutrophils automated count (number/volume) 1.2 10*3 1.8-7.8 Blood lymphocytes automated count (number/volume) 0.5 10*3 1.0-4.0 Blood monocytes automated count (number/volume) 0.2 10*3 0.0-1.0 Automated eosinophil count 0.0 10*3/uL 0.0-0.3 Automated blood basophil count (count/volume) 0.0 10*3/uL 0.0-0.1 Whole blood basic metabolic panel - 01/24/18 05:00 Serum or plasma sodium measurement (moles/volume) 143 mmol/L 135-145 Serum or plasma potassium measurement (moles/volume) 3.3 mmol/L 3.6-5.0 Serum or plasma chloride measurement (moles/volume) 113 mmol/L 98-107 Carbon dioxide 20 mmol/L 21-32 Serum or plasma anion gap determination (moles/volume) 10 mmol/L 5-14 Serum or plasma urea nitrogen measurement (mass/volume) 18 mg/dL 7-18 Serum or plasma creatinine measurement (mass/volume) 0.70 mg/dL 0.60-1.30 Serum or plasma urea nitrogen/creatinine mass ratio 26 NRG Serum or plasma creatinine measurement with calculation of estimated glomerular filtration rate > NRG Serum or plasma glucose measurement (mass/volume) 98 mg/dL 70-105 Serum or plasma calcium measurement (mass/volume) 8.3 mg/dL 8.5-10.1 Complete blood count (CBC) with automated white blood cell (WBC) differential - 01/25/18 05:15 Blood leukocytes automated count (number/volume) 2.6 10*3/uL 4.3-11.0 Blood erythrocytes automated count (number/volume) 3.29 10*6/uL 4.35-5.85 Venous blood hemoglobin measurement (mass/volume) 9.8 g/dL 11.5-16.0 Blood hematocrit (volume fraction) 29 % 35-52 Automated erythrocyte mean corpuscular volume 88 [foz_us] 80-99 Automated erythrocyte mean corpuscular hemoglobin (mass per erythrocyte) 30 pg 25-34 Automated erythrocyte mean corpuscular hemoglobin concentration measurement ( mass/volume) 34 g/dL 32-36 Automated erythrocyte distribution width ratio 13.2 % 10.0-14.5 Automated blood platelet count (count/volume) 115 10*3/uL 130-400 Automated blood platelet mean volume measurement 9.8 [foz_us] 7.4-10.4 Automated blood neutrophils/100 leukocytes 42 % 42-75 Automated blood lymphocytes/100 leukocytes 34 % 12-44 Blood monocytes/100 leukocytes 19 % 0-12 Automated blood eosinophils/100 leukocytes 4 % 0-10 Automated blood basophils/100 leukocytes 0 % 0-10 Blood neutrophils automated count (number/volume) 1.1 10*3 1.8-7.8 Blood lymphocytes automated count (number/volume) 0.9 10*3 1.0-4.0 Blood monocytes automated count (number/volume) 0.5 10*3 0.0-1.0 Automated eosinophil count 0.1 10*3/uL 0.0-0.3 Automated blood basophil count (count/volume) 0.0 10*3/uL 0.0-0.1 Whole blood basic metabolic panel - 01/25/18 05:15 Serum or plasma sodium measurement (moles/volume) 142 mmol/L 135-145 Serum or plasma potassium measurement (moles/volume) 3.3 mmol/L 3.6-5.0 Serum or plasma chloride measurement (moles/volume) 109 mmol/L 98-107 Carbon dioxide 23 mmol/L 21-32 Serum or plasma anion gap determination (moles/volume) 10 mmol/L 5-14 Serum or plasma urea nitrogen measurement (mass/volume) 12 mg/dL 7-18 Serum or plasma creatinine measurement (mass/volume) 0.66 mg/dL 0.60-1.30 Serum or plasma urea nitrogen/creatinine mass ratio 18 NRG Serum or plasma creatinine measurement with calculation of estimated glomerular filtration rate > NRG Serum or plasma glucose measurement (mass/volume) 87 mg/dL 70-105 Serum or plasma calcium measurement (mass/volume) 8.8 mg/dL 8.5-10.1 Complete blood count (CBC) with automated white blood cell (WBC) differential - 01/26/18 05:50 Blood leukocytes automated count (number/volume) 2.9 10*3/uL 4.3-11.0 Blood erythrocytes automated count (number/volume) 3.67 10*6/uL 4.35-5.85 Venous blood hemoglobin measurement (mass/volume) 10.7 g/dL 11.5-16.0 Blood hematocrit (volume fraction) 32 % 35-52 Automated erythrocyte mean corpuscular volume 88 [foz_us] 80-99 Automated erythrocyte mean corpuscular hemoglobin (mass per erythrocyte) 29 pg 25-34 Automated erythrocyte mean corpuscular hemoglobin concentration measurement ( mass/volume) 33 g/dL 32-36 Automated erythrocyte distribution width ratio 13.0 % 10.0-14.5 Automated blood platelet count (count/volume) 127 10*3/uL 130-400 Automated blood platelet mean volume measurement 10.1 [foz_us] 7.4-10.4 Automated blood neutrophils/100 leukocytes 48 % 42-75 Automated blood lymphocytes/100 leukocytes 35 % 12-44 Blood monocytes/100 leukocytes 14 % 0-12 Automated blood eosinophils/100 leukocytes 3 % 0-10 Automated blood basophils/100 leukocytes 0 % 0-10 Blood neutrophils automated count (number/volume) 1.4 10*3 1.8-7.8 Blood lymphocytes automated count (number/volume) 1.0 10*3 1.0-4.0 Blood monocytes automated count (number/volume) 0.4 10*3 0.0-1.0 Automated eosinophil count 0.1 10*3/uL 0.0-0.3 Automated blood basophil count (count/volume) 0.0 10*3/uL 0.0-0.1 Whole blood basic metabolic panel - 01/26/18 05:50 Serum or plasma sodium measurement (moles/volume) 143 mmol/L 135-145 Serum or plasma potassium measurement (moles/volume) 3.8 mmol/L 3.6-5.0 Serum or plasma chloride measurement (moles/volume) 109 mmol/L 98-107 Carbon dioxide 23 mmol/L 21-32 Serum or plasma anion gap determination (moles/volume) 11 mmol/L 5-14 Serum or plasma urea nitrogen measurement (mass/volume) 12 mg/dL 7-18 Serum or plasma creatinine measurement (mass/volume) 0.70 mg/dL 0.60-1.30 Serum or plasma urea nitrogen/creatinine mass ratio 17 NRG Serum or plasma creatinine measurement with calculation of estimated glomerular filtration rate > NRG Serum or plasma glucose measurement (mass/volume) 90 mg/dL 70-105 Serum or plasma calcium measurement (mass/volume) 9.3 mg/dL 8.5-10.1 Complete blood count (CBC) with automated white blood cell (WBC) differential - 01/28/18 07:15 Blood leukocytes automated count (number/volume) 3.7 10*3/uL 4.3-11.0 Blood erythrocytes automated count (number/volume) 4.05 10*6/uL 4.35-5.85 Venous blood hemoglobin measurement (mass/volume) 11.9 g/dL 11.5-16.0 Blood hematocrit (volume fraction) 35 % 35-52 Automated erythrocyte mean corpuscular volume 87 [foz_us] 80-99 Automated erythrocyte mean corpuscular hemoglobin (mass per erythrocyte) 29 pg 25-34 Automated erythrocyte mean corpuscular hemoglobin concentration measurement ( mass/volume) 34 g/dL 32-36 Automated erythrocyte distribution width ratio 12.8 % 10.0-14.5 Automated blood platelet count (count/volume) 148 10*3/uL 130-400 Automated blood platelet mean volume measurement 9.8 [foz_us] 7.4-10.4 Automated blood neutrophils/100 leukocytes 47 % 42-75 Automated blood lymphocytes/100 leukocytes 41 % 12-44 Blood monocytes/100 leukocytes 10 % 0-12 Automated blood eosinophils/100 leukocytes 2 % 0-10 Automated blood basophils/100 leukocytes 1 % 0-10 Blood neutrophils automated count (number/volume) 1.7 10*3 1.8-7.8 Blood lymphocytes automated count (number/volume) 1.5 10*3 1.0-4.0 Blood monocytes automated count (number/volume) 0.4 10*3 0.0-1.0 Automated eosinophil count 0.1 10*3/uL 0.0-0.3 Automated blood basophil count (count/volume) 0.0 10*3/uL 0.0-0.1 Comprehensive metabolic panel - 01/28/18 07:15 Serum or plasma sodium measurement (moles/volume) 144 mmol/L 135-145 Serum or plasma potassium measurement (moles/volume) 3.9 mmol/L 3.6-5.0 Serum or plasma chloride measurement (moles/volume) 108 mmol/L 98-107 Carbon dioxide 26 mmol/L 21-32 Serum or plasma anion gap determination (moles/volume) 10 mmol/L 5-14 Serum or plasma urea nitrogen measurement (mass/volume) 13 mg/dL 7-18 Serum or plasma creatinine measurement (mass/volume) 0.75 mg/dL 0.60-1.30 Serum or plasma urea nitrogen/creatinine mass ratio 17 NRG Serum or plasma creatinine measurement with calculation of estimated glomerular filtration rate > NRG Serum or plasma glucose measurement (mass/volume) 92 mg/dL 70-105 Serum or plasma calcium measurement (mass/volume) 9.5 mg/dL 8.5-10.1 Serum or plasma total bilirubin measurement (mass/volume) 1.0 mg/dL 0.1-1.0 Serum or plasma alkaline phosphatase measurement (enzymatic activity/volume) 62 U/L 40-136 Serum or plasma aspartate aminotransferase measurement (enzymatic activity/ volume) 26 U/L 5-34 Serum or plasma alanine aminotransferase measurement (enzymatic activity/volume ) 18 U/L 0-55 Serum or plasma protein measurement (mass/volume) 6.5 g/dL 6.4-8.2 Serum or plasma albumin measurement (mass/volume) 4.2 g/dL 3.2-4.5 CALCIUM CORRECTED 9.3 mg/dL 8.5-10.1 Complete blood count (CBC) with automated white blood cell (WBC) differential - 03/11/18 13:26 Blood leukocytes automated count (number/volume) 6.9 10*3/uL 4.3-11.0 Blood erythrocytes automated count (number/volume) 3.79 10*6/uL 4.35-5.85 Venous blood hemoglobin measurement (mass/volume) 11.5 g/dL 11.5-16.0 Blood hematocrit (volume fraction) 33 % 35-52 Automated erythrocyte mean corpuscular volume 88 [foz_us] 80-99 Automated erythrocyte mean corpuscular hemoglobin (mass per erythrocyte) 30 pg 25-34 Automated erythrocyte mean corpuscular hemoglobin concentration measurement ( mass/volume) 35 g/dL 32-36 Automated erythrocyte distribution width ratio 13.4 % 10.0-14.5 Automated blood platelet count (count/volume) 175 10*3/uL 130-400 Automated blood platelet mean volume measurement 10.1 [foz_us] 7.4-10.4 Automated blood neutrophils/100 leukocytes 81 % 42-75 Automated blood lymphocytes/100 leukocytes 11 % 12-44 Blood monocytes/100 leukocytes 7 % 0-12 Automated blood eosinophils/100 leukocytes 0 % 0-10 Automated blood basophils/100 leukocytes 0 % 0-10 Blood neutrophils automated count (number/volume) 5.6 10*3 1.8-7.8 Blood lymphocytes automated count (number/volume) 0.8 10*3 1.0-4.0 Blood monocytes automated count (number/volume) 0.5 10*3 0.0-1.0 Automated eosinophil count 0.0 10*3/uL 0.0-0.3 Automated blood basophil count (count/volume) 0.0 10*3/uL 0.0-0.1 PT panel in platelet poor plasma by coagulation assay - 03/11/18 13:26 Prothrombin time (PT) in platelet poor plasma by coagulation assay 12.7 s 12.2-14.7 INR in platelet poor plasma or blood by coagulation assay 1.0 0.8-1.4 Activated partial thromboplastin time (aPTT) in platelet poor plasma bycoagulation assay - 03/11/18 13:26 Activated partial thromboplastin time (aPTT) in platelet poor plasma bycoagulation assay 23 s 24-35 Comprehensive metabolic panel - 03/11/18 13:26 Serum or plasma sodium measurement (moles/volume) 142 mmol/L 135-145 Serum or plasma potassium measurement (moles/volume) 3.9 mmol/L 3.6-5.0 Serum or plasma chloride measurement (moles/volume) 103 mmol/L 98-107 Carbon dioxide 25 mmol/L 21-32 Serum or plasma anion gap determination (moles/volume) 14 mmol/L 5-14 Serum or plasma urea nitrogen measurement (mass/volume) 20 mg/dL 7-18 Serum or plasma creatinine measurement (mass/volume) 0.86 mg/dL 0.60-1.30 Serum or plasma urea nitrogen/creatinine mass ratio 23 NRG Serum or plasma creatinine measurement with calculation of estimated glomerular filtration rate > NRG Serum or plasma glucose measurement (mass/volume) 105 mg/dL 70-105 Serum or plasma calcium measurement (mass/volume) 9.9 mg/dL 8.5-10.1 Serum or plasma total bilirubin measurement (mass/volume) 1.2 mg/dL 0.1-1.0 Serum or plasma alkaline phosphatase measurement (enzymatic activity/volume) 73 U/L 40-136 Serum or plasma aspartate aminotransferase measurement (enzymatic activity/ volume) 22 U/L 5-34 Serum or plasma alanine aminotransferase measurement (enzymatic activity/volume ) 18 U/L 0-55 Serum or plasma protein measurement (mass/volume) 7.7 g/dL 6.4-8.2 Serum or plasma albumin measurement (mass/volume) 4.8 g/dL 3.2-4.5 Magnesium - 03/11/18 13:26 Magnesium 2.5 mg/dL 1.8-2.4 Serum or plasma troponin i.cardiac measurement (mass/volume) - 03/11/18 13:26 Serum or plasma troponin i.cardiac measurement (mass/volume) < ng/ mL <0.028 Myoglobin, serum - 03/11/18 13:26 Myoglobin, serum 80.8 ng/mL 10.0-92.0 Serum or plasma lithium measurement (moles/volume) - 03/11/18 13:26 BNP level 245.5 pg/mL <100.0 Encounters ACCT No. Visit Date/Time Discharge Status Pt. Type Provider Facility Loc./Unit Complaint [id number] 03/11/2018 12:57:00 03/11/2018 15:06:00 DIS Emergency YOUSUF LOPEZ APRN [facility] ER CHEST PAIN;POSS BLOOD CLOT [id number] 01/23/2018 13:12:00 01/28/2018 18:00:00 DIS Inpatient GELFILEMON PAT DO [facility] 4TH LLL PNEUMONIA; FEBRILE ILLNESS;WEAKNESS [id number] 10/30/2017 14:32:00 10/30/2017 23:59:59 CLS Outpatient FILEMON PERALTA DO [facility] RAD PAIN IN LOWER RIGHT QUADRANT FOR 3 WEEKS [id number] 09/04/2017 00:06:00 09/04/2017 03:00:00 DIS Emergency CHECO MALCOLM, GUANACO Kong [facility] ER BACK SIDE PAIN-FALL [id number] 06/27/2017 07:58:00 06/27/2017 23:59:59 CLS Outpatient ANA MARIA LI MD [facility] CARD I25.10 CAD [id number] 02/26/2016 15:21:00 02/26/2016 17:24:00 DIS Emergency YOUSUF LOPEZ APRN [facility] ER VAGINAL BLEEDING, HAS HAD HYSTERECTOMY [id number] 12/27/2015 09:49:00 12/27/2015 23:59:59 CLS Outpatient ANA MARIA LI MD [facility] CARD CAD,HTN,LAFB,MIXED HLP [id number] 08/06/2015 11:35:00 08/06/2015 23:59:59 CLS Outpatient YADYLENFUNEZ FILEMON Alex [facility] RAD LOW BACK PAIN, SCIATICA [id number] 07/06/2015 07:59:00 07/06/2015 23:59:59 CLS Outpatient KATHRYN DO FILEMON Johnson [facility] RAD SMALL BOWEL LOOPS WITHIN LLQ ADHESIONS [id number] 06/30/2015 10:20:00 06/30/2015 23:59:59 CLS Outpatient LAWSONFUNEZ FILEMON Alex [facility] RAD PAIN IN LT SIDE AND BACK [id number] 06/18/2015 10:40:00 06/18/2015 23:59:59 CLS Outpatient YADYLENFUNEZ FILEMON Alex [facility] RAD BACK PAIN AND L HIP PAIN [id number] 06/11/2015 12:02:00 06/11/2015 23:59:59 CLS Outpatient YADYLENFILEMON REED DO [facility] RAD LOWER BACK PAIN [id number] 08/24/2012 11:28:00 08/24/2012 23:59:59 CLS Outpatient [id number] 04/08/2014 19:33:00 Document Registration [id number] 02/02/2012 09:31:00 Document Registration [id number] 01/31/2012 07:25:00 Document Registration [id number] 09/29/2010 08:57:00 Document Registration [id number] 04/12/2010 07:12:00 Document Registration [id number] 07/23/2009 08:57:00 Document Registration [id number] 01/18/2009 10:47:00 Document Registration [id number] 01/07/2009 17:16:00 Document Registration
== END 2018-03-11 15:06 | disposition home or self-care (01) ==
LOC: EDUNIT# 12:55 → ER 12:57
DX: R07.9 Chest pain, unspecified (principal); I10 Essential (primary) hypertension; G20 Parkinson's disease; K21.9 Gastro-esophageal reflux disease without esophagitis; Z87.19 Personal history of other diseases of the digestive system; Z88.5 Allergy status to narcotic agent; Z90.710 Acquired absence of both cervix and uterus; Z90.89 Acquired absence of other organs
CPT/HCPCS: 36415; 71045; 71275; 80053; 83735; 83874; 83880; 84484; 85025; 85610; 85730; 93005; 93041

== ENCOUNTER 2018-06-19 08:41 | Day surgery (SDC) | payer MEDICARE, OTHER ==
[2018-06-19] VITALS (11 sets, daily range): BP systolic 131–153; BP diastolic 69–89
[~2018-06-19] VITALS: Ht 160 cm; Wt 64.9 kg
[~2018-06-19 08:41] MED LIST changes: +HEParin 1000 UNIT/ML (10ML VIAL) FOR BOLUS ONE; +LIDOCAINE 1% INJ 20 ML 20 ML VIAL ONE; +LOSA100T57 PO; -LOSA100T8 PO; +NS IV 1000 ML 3,000 ML ONE; +OLME20TA21 PO
[2018-06-19] MEDS ORDERED: NS IV 1000 ML 1,000 ML IV SCH ×2 (08:42→13:09)
[2018-06-19 09:45] LABS: HEMOGLOBIN 12.2 G/DL (11.5-16.0); MEAN PLATELET VOLUME 9.6 FL (7.4-10.4); RED CELL DISTRIBUTION WIDTH 13.9 % (10.0-14.5); WHITE BLOOD COUNT 5.6 10^3/uL (4.3-11.0)
--- NOTE | 2018-06-19 09:46 | Diagnostic Imaging Report ---
INDICATION: Coronary artery disease. EXAMINATION: Portable chest at 9:23 AM. FINDINGS: The heart size and pulmonary vascularity are normal. The lungs are clear. There are no effusions or pneumothoraces. IMPRESSION: Negative chest. Dictated by: Dictated on workstation # [id number]
[2018-06-19] MEDS ORDERED: FURO20TA4 PO (09:53)
[2018-06-19] MEDS ORDERED: CARB1TAB19 PO (09:53)
[2018-06-19] MEDS ORDERED: ACET-2267 PO (09:53)
[2018-06-19] MEDS ORDERED: LOSA100T57 PO (09:53)
[2018-06-19] MEDS ORDERED: AMLO5TAB4 PO (09:53)
[2018-06-19] MEDS ORDERED: ONDN4T PO (09:53)
[2018-06-19 10:03] LABS: INR 0.9 (0.8-1.4); PROTHROMBIN TIME PATIENT 12.7 SEC (12.2-14.7)
[2018-06-19 10:12] LABS: ALBUMIN 4.5 GM/DL (3.2-4.5); BILIRUBIN,TOTAL 1.3 MG/DL (0.1-1.0); CALCIUM 9.9 MG/DL (8.5-10.1); CREATININE SERUM 0.93 MG/DL (0.60-1.30); POTASSIUM 3.6 MMOL/L (3.6-5.0); TOTAL PROTEIN 7.2 GM/DL (6.4-8.2)
[2018-06-19] MEDS ORDERED: FURO40TA4 PO (10:45)
--- NOTE | 2018-06-19 10:46 | NUR ---
SPOKE WITH THE PATIENT ABOUT HER MEDICATIONS. WE WENT OVER THE MED LIST ON THE CHART FROM THE OFFICE AND SHE VERIFIED HOW SHE TAKES THEM. I HAD A LIST FAXED OVER FROM [facility] TO VERIFY DOSES. [facility] FILLED: 06-10-18 SIMVASTATIN 20MG HS #30 (NOT FILLED YET) 06-14-18 AMITRIPTYLINE 25MG HS #30 06-13-18 FUROSEMIDE 40MG DAILY #30 06-08-18 LOSARTAN 100MG DAILY #30 06-08-18 SINEMET 25-100MG TID #90 05-28-18 PROMETHAZINE 25MG TID PRN #90 05-28-18 NORVASC 5MG DAILY #30 05-28-18 ZOFRAN 4MG TID PRN #90 04-10-18 METOPROLOL SUCCINATE 50MG DAILY #90 11-30-17 SEROQUEL 25MG 1/2 TAB HS PRN HALLUCINATIONS #15 SHE TAKES TYLENOL AND TUMS OTC PRN. SHE ALSO STATES SHE HAS HYDROCODONE ON HAND SHE TAKES 1/2 AT HS VERY RARELY. I VERIFIED THE DOSE WITH [facility].
--- NOTE | 2018-06-19 12:26 | Cardiac Procedure Note-CS/ASA ---
Pre-Procedure Note Pre-Op Procedure Note H&P Reviewed The H&P was reviewed, patient examined and no changes noted. Date H&P Reviewed: Jun 19, 2018 Time H&P Reviewed: 12:25 Conscious Sedation Pre-Proced Time 12:25 ASA Score 3 For ASA 3 and 4: Consider anesthesia and medical clearance. Also, for patients with a history of failed moderate sedation consider anesthesia. Airway Lungs Heart ASA score ASA 1: a normal healthy patient ASA 2: a patient with a mild systemic disease (mid diabetes, controlled hypertension, obesity x ASA 3: a patient with a severe systemic disease that limits activity (angina , COPD, prior Myocardial infarction) ASA 4: a patient with an incapacitating disease that is a constant threat to life (CHF, renal failure) ASA 5: a moribund patient not expected to survive 24 hrs. (ruptured aneurysm) ASA 6: a declared brain- patient whose organs are being harvested. For emergent operations, add the letter E after the classification Mallampati Classification Grade 3 Sedation Plan Analgesia, Amnesia, Plan communicated to team members, Discussed options with patient/fam, Discussed risks with patient/fam The patient is an appropriate candidate to undergo the planned procedure, sedation, and anesthesia. The patient immediately re-assessed prior to indication. ANA MARIA LI MD Jun 19, 2018 12:26
[2018-06-19] MEDS ORDERED: fentaNYL INJECTION 100 MCG/2 ML AMP ONE (12:27)
[2018-06-19] MEDS ORDERED: MIDAZOLAM 5 MG/5 ML (VERSED) VIAL ONE (12:27)
--- NOTE | 2018-06-19 13:11 | Discharge Inst-Post CATH ---
Discharge Inst-CATH/EP Post Cardiac Cath/EP D/C Inst Follow Up/Plan Appointment with Dr Ackerman's office in 2-4 weeks <b>CARDIAC CATH/EP PROCEDURE DISCHARGE INSTRUCTIONS</b> Cardiac Rehab Please be expecting a follow up call from Cardiac Rehab within in one week. ACTIVITY * Go Home directly and rest. * Limit activity of the leg (or wrist if it was used) for 7 days including aerobics, swimming, jogging, bicycling, etc. * Restrict stair-climbing for 7 days if possible, if not, climb up with your non -cath leg, then bring together on the same step. * Avoid lifting, pushing, pulling or excessive movement of the affected extremity for 7 days. * Customary sexual activity may be resumed after 2 days-use caution not to use a position that strains or causes pain to the affected extremity. * No driving for 24 hours. * NO SMOKING. * Avoid straining for bowel movements for 7 days. * Gentle walking on level ground is allowed. * Returning to work will depend on the type of procedure and the results. Your doctor will discuss this with you. CALL YOUR DOCTOR FOR ANY OF THE FOLLOWING: *If bleeding from the puncture site occurs- Apply gentle pressure to site with clean cloth and call your doctor or EMS. * If a knot or lump forms under the skin, increases in size, or causes pain. * If bruising appears to be worsening or moving further down your leg instead of disappearing. * Temperature above 101 F. CARE OF YOUR GROIN INCISION; * Bruising or purple discoloration of the skin near the puncture site is common. * You may shower only, no bathtub bathing for 5 days. Be careful to avoid slipping as your leg may feel stiff. * If a closure device was used on your femoral artery, please see the attached guide regarding care of the device and your leg. * Leave dressing on FOR 24 hours. CARE OF YOUR WRIST INCISION; * Bruising or purple discoloration of the skin near the puncture site is common. * You may shower. * DO NOT submerge wrist. * Leave dressing on FOR 24 hours. ANA MARIA ACKERMAN MD Jun 19, 2018 13:11
[2018-06-19] MEDS ORDERED: PATIENT MAY USE OWN MEDS, ALL PO SCH (13:15)
--- NOTE | 2018-06-19 13:15 | Cardiac Cath Report ---
Cardiac Cath Report Physician (s)/[place] Operator (s) Physician ANA MARIA LI MD Pre-Procedure Diagnosis Pre-Procedure Diagnosis: coronary artery disease Post-Procedure Note Procedure Start Date: Jun 19, 2018 Name of Procedure: left heart catheterization Left ventriculogram Aortic arch angiogram Findings/Procedure Note PROCEDURE NOTE: After explaining the procedure to the patient, all pros and cons were explained , all questions were answered. The patient signed the consent and then she was placed on the cardiac catheterization laboratory. Groin was prepped SL fashion local anesthesia was used. Sheath placed in the right femoral artery. Sukhdev right and left catheter were used to access the coronary system. Pigtail was used to access the left ventricular cavity. Left ventriculogram was done Aortic arch angiogram was done At the end of the procedure the sheath was removed. Closure device was used FINDINGS: Hemodynamics LV 174/15 end-diastolic pressure 15 Aorta 169/77 mean of 118 ANATOMY: Left Main is free of obstructive disease Left Anterior Descending is moderate in size, mild disease nonobstructive disease Left Circumflex is small nondominant artery with no effective disease Right Coronory Artery is dominant artery with mild to moderate disease nonobstructive disease LV Gram was done showing normal left ventricular size and systolic function with estimated ejection fraction 60 percent Aorta evaluation done with pigtail catheter in the aortic arch, aortic arch 100 g was done which showed hypertensive changes in the aorta with tortuosity in the thoracic aorta, origin of the innominate artery, carotid artery, left subclavian artery showed tortuosity with mild disease, nonobstructive disease CONCLUSION: 1. Mild coronary artery disease nonobstructive disease 2. Normal left ventricular size and systolic function estimated ejection fraction 60 percent 3. Tortuosity in the thoracic aorta with hypertensive changes, no dissection or aneurysm DISCUSSION AND RECOMMENDATION: continue to maximize medical therapy, no intervention is warranted Anesthesia Type: Conscious Sedation Estimated blood loss (mL): 20 ml Contrast Amount: 55 ml Total Radiation Dose: 319 mGy Post-Procedure Diagnosis Post-operative diagnosis: Coronary artery disease Hypertension Hyperlipidemia Chest pain ANA MARIA LI MD Jun 19, 2018 13:15
== END 2018-06-19 17:53 | disposition home or self-care (01) ==
LOC: CATH 08:41 → SDC 13:30 → CATH 17:53
PROVIDERS: ATTEND Internal Medicine Cardiovascular Disease
DX: I25.10 Atherosclerotic heart disease of native coronary artery without angina pectoris (principal); R07.9 Chest pain, unspecified; I10 Essential (primary) hypertension; E78.2 Mixed hyperlipidemia; I44.4 Left anterior fascicular block; I65.23 Occlusion and stenosis of bilateral carotid arteries; Z79.899 Other long term (current) drug therapy
CPT/HCPCS: 36221; 36415; 71045; 80053; 85027; 85610; 85730; 87081; 93458

== ENCOUNTER → 2018-08-14 | Outpatient (CLI) | payer MEDICARE, OTHER ==
[~2018-08-14] MED LIST changes: +ACET-2267 PO; +AMLO5TAB4 PO; +CARB1TAB19 PO; +FURO20TA4 PO; +FURO40TA4 PO; -HEParin 1000 UNIT/ML (10ML VIAL) FOR BOLUS ONE; -LIDOCAINE 1% INJ 20 ML 20 ML VIAL ONE; -NS IV 1000 ML 3,000 ML ONE; +ONDN4T PO
--- NOTE | 2018-08-14 14:03 | Diagnostic Imaging Report ---
PROCEDURE: CT abdomen and pelvis with contrast. TECHNIQUE: Multiple contiguous axial images were obtained through the abdomen and pelvis after administration of intravenous contrast. Auto Exposure Controls were utilized during the CT exam to meet ALARA standards for radiation dose reduction. INDICATION: Bloating and weight loss. COMPARISON: Correlation is made with prior CT from 10/30/2017. FINDINGS: The lung bases are clear. Moderate sized hiatal hernia is again noted. Previously noted small low-density in the head dome of the right lobe of the liver appears stable, too small to characterize but most likely a cyst. No new liver lesion is seen. Gallbladder is unremarkable. No biliary duct dilatation is identified. The pancreas and spleen are unremarkable. No adrenal mass is detected. Aorta is nonaneurysmal. No central retroperitoneal or mesenteric lymphadenopathy is seen. Small and large bowel loops appear to be normal in caliber. There is moderate stool throughout the colon. No obstruction is seen. There is no ascites. Bony structures demonstrate postsurgical changes of posterior instrument fusion in the lower lumbosacral spine. IMPRESSION: 1. Hiatal hernia. 2. Hepatic low density, stable and most likely a cyst. 3. No acute feature in the abdomen or pelvis is identified. Dictated by: Dictated on workstation # [id number]
== END ==
LOC: RAD 12:37
PROVIDERS: ATTEND Family Medicine
DX: K44.9 Diaphragmatic hernia without obstruction or gangrene (principal); K76.89 Other specified diseases of liver; R63.4 Abnormal weight loss
CPT/HCPCS: 74177

== ENCOUNTER → 2018-08-16 | Outpatient (CLI) | payer MEDICARE, OTHER ==
--- NOTE | 2018-08-16 11:43 | Diagnostic Imaging Report ---
PROCEDURE: MRI lumbar spine. TECHNIQUE: Multiplanar, multisequence MRI of the lumbar spine was performed without contrast. INDICATION: Prior lumbar spine surgery in 2016. Patient had a fall in April 2018 and now has increasing low back pain. COMPARISON: Correlation is made with prior MRI of the lumbar spine from 08/06/2015. FINDINGS: Marked left convexity lumbar scoliotic curvature is noted. Since prior study, patient has undergone posterior instrumented fusion with vertical stabilization rods and pedicle screws extending from L4 through S1. Hardware does produce moderate artifact. Lordotic curvature is normal. Vertebral body heights are maintained. No acute compression fracture is seen. No geographic marrow lesion is identified. Multilevel degenerative disc disease is seen with variable disc space narrowing and marginal spurring. There appear to be laminectomy changes at L4-L5. T12-L1: Right paramidline disc may be slightly extruded and extending cephalad posterior to the T12 vertebral body. This indents the ventral thecal sac but no significant central canal stenosis is seen. No significant neural foraminal narrowing is identified. L1-L2: Broad-based disc/osteophyte complex indents the ventral thecal sac. Central canal is patent. There is narrowing of the right lateral recess and right neural foramen. There is mild left neural foraminal narrowing as well. L2-L3: Broad-based disc/osteophyte complex indents the ventral thecal sac. Central canal is patent. There is right lateral recess narrowing. No significant neural foraminal stenosis is seen. L3-L4: Ligamentous thickening and facet changes with broad-based disc/osteophyte complex are noted. Central canal is patent. No significant neural foraminal stenosis is seen. L4-L5: Central canal is widely patent. There appears to be mild neural foraminal narrowing bilaterally. L5-S1: Central canal is widely patent. No significant neuroforaminal narrowing is seen. Paraspinous tissues are unremarkable. IMPRESSION: Severe lumbar spondylosis and left convexity lumbar scoliotic curvature. Postop changes of posterior instrumented fusion L4 through S1 is seen with small fluid collection at the surgical bed posterior to the thecal sac at the L4-L5 level suggestive of a seroma. There are generalized degenerative changes with lateral recess and neuroforaminal narrowing described level by level above. No definite central canal stenosis is seen. No acute compression fractures are identified. Dictated by: Dictated on workstation # [id number]
== END ==
LOC: RAD 09:59
PROVIDERS: ATTEND Physician Assistant
DX: M47.816 Spondylosis without myelopathy or radiculopathy, lumbar region (principal); M48.061 Spinal stenosis, lumbar region without neurogenic claudication; M41.86 Other forms of scoliosis, lumbar region; M51.36 Other intervertebral disc degeneration, lumbar region; Z98.1 Arthrodesis status
CPT/HCPCS: 72148

== ENCOUNTER → 2018-09-09 | Outpatient (CLI) | payer MEDICARE, OTHER ==
--- NOTE | 2018-09-09 15:39 | Diagnostic Imaging Report ---
PROCEDURE: CT lumbar spine without contrast. TECHNIQUE: Multiple contiguous axial images were obtained through the lumbar spine without the use of intravenous contrast. Sagittal and coronal reformations were then performed. Auto Exposure Controls were utilized during the CT exam to meet ALARA standards for radiation dose reduction. INDICATION: Recent fall and back pain. FINDINGS: Left convexity scoliotic curvature is noted. There are postop changes of posterior instrumented fusion with vertical stabilization rods and pedicle screws transfixing the L4 through S1 levels. The hardware appears to be intact. No fracture or loosening of the hardware is seen. Vertebral body heights are maintained. No acute compression fracture is detected. There is severe multilevel degenerative disc disease. There is loss of disc height at all levels as well as endplate osteophyte formation. There is vacuum disc noted at L1-L2 and L5-S1 levels. A decompression laminectomy at L4 and L5 levels is noted. Paraspinous tissues are unremarkable. IMPRESSION: Lumbar scoliosis and spondylosis with decompression laminectomy and posterior instrumented fusion of L4 through S1. No hardware fracture or loosening is seen. No acute bony abnormality is detected. Dictated by: Dictated on workstation # [id number]
== END ==
LOC: RAD 14:05
PROVIDERS: ATTEND Physician Assistant
DX: M41.86 Other forms of scoliosis, lumbar region (principal); M47.816 Spondylosis without myelopathy or radiculopathy, lumbar region; Z98.1 Arthrodesis status
CPT/HCPCS: 72131

== ENCOUNTER 2018-09-20 21:16 | Emergency (ER) | payer MEDICARE, OTHER ==
[~2018-09-20] VITALS: Ht 162.6 cm; Wt 60.8 kg
--- OUTSIDE RECORDS SUMMARY | 2018-09-20 21:23 | XMS REPORT | Continuity of Care Document ---
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 [facility] CARD CAD,HTN,LAFB,MIXED HLP [id number] 08/06/2015 11:35:00 08/06/2015 23:59:59 CLS Outpatient FILEMON PERALTA DO Via [facility] RAD LOW BACK PAIN,SCIATICA [id number] 07/06/2015 07:59:00 07/06/2015 23:59:59 CLS Outpatient FILEMON PERALTA DO Via [facility] RAD SMALL BOWEL LOOPS WITHIN LLQ ADHESIONS [id number] 06/30/2015 10:20:00 06/30/2015 23:59:59 CLS Outpatient FILEMON PERALTA DO Via [facility] RAD PAIN IN LT SIDE AND BACK [id number] 06/18/2015 10:40:00 06/18/2015 23:59:59 CLS Outpatient FILEMON PERALTA DO Via [facility] RAD BACK PAIN AND L HIP PAIN [id number] 06/11/2015 12:02:00 06/11/2015 23:59:59 CLS Outpatient FILEMON PERALTA DO Via [facility] RAD LOWER BACK PAIN [id number] 08/24/2012 11:28:00 08/24/2012 23:59:59 CLS Outpatient [id number] 09/20/2018 21:17:00 ACT Emergency DILCIA STONE DO Via [facility] ER WEAKNESS,DIZZY [id number] 04/08/2014 19:33:00 Document Registration [id number] 02/02/2012 09:31:00 Document Registration [id number] 01/31/2012 07:25:00 Document Registration [id number] 09/29/2010 08:57:00 Document Registration [id number] 04/12/2010 07:12:00 Document Registration [id number] 07/23/2009 08:57:00 Document Registration [id number] 01/18/2009 10:47:00 Document Registration [id number] 01/07/2009 17:16:00 Document Registration
[2018-09-20] MEDS ORDERED: LACTATED RINGERS 1,000 ML IV ONE (21:37)
--- NOTE | 2018-09-20 22:00 | ED General ---
General Stated Complaint: WEAKNESS,DIZZY Source of Information: Patient (SPEECH PATTERN IS OFTEN DIFFICULT TO UNDERSTAND--TALKS VERY SOFTLY, BUT AT LENGTH AND SPEECH PATTERN IS SLIGHTLY MUMBLED AT TIMES--THIS APPARENTLY IS NORMAL FOR PT, PER FAMILY MEMBER HERE WITH PT. ) History of Present Illness Date Seen by Provider: Sep 20, 2018 Time Seen by Provider: 21:29 Initial Comments PT ARRIVES VIA POV --NEEDS WHEELCHAIR AND FULL ASSIST OUT OF VEHICLE, AND NEEDS FULL ASSIST WITH ANY ADJUSTMENTS OF BODY WHEN SHE IS ON ER CART. 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 DENIES ANY PAIN TO ARM OR LEG DENIES ANY PAIN IN NECK, AND NO INCREASE IN CHRONIC LOWER BACK PAIN--S/P LUMBAR SURGERY 01/2016 DENIES ANY NEW PARESTHESIAS--STATES TOES OF BOTH FEET ARE ALWAYS A LITTLE NUMB AND TINGLY. SYMPTOMS ARE NO DIFFERENT TODAY IN ANY WAY--IS UNCLEAR WHAT [facility], SHE CLAIMS THAT NOTHING IS DIFFERENT AND HAS NOT ATTEMPTED TO SEEK CARE FOR THIS PROBLEM PT STATES SHE DID HAVE ROUTINE APPOINTMENT LAST WEEK WITH HER "BACK DR" --PT STATES THAT SHE IS "SUPPOSED TO GET AN MRI OF MY NECK--HE THOUGHT I MIGHT HAVE BROKEN SOMETHING IN THERE" ---BUT MRI HAS NOT BEEN SCHEDULED YET, AND NO XRAYS, OR ANY OTHER TESTS DONE. PT DENIES ANY CHANGES IN BOWEL OR BLADDER FUNCTION NO PAIN ON URINATION NO NAUSEA/VOMITING NO FEVER NO COUGH OR RECENT ILLNESS PCP: DR. PERALTA LEAD TECHNICAL ARCHITECT: DR. LI NEUROLOGIST: LATESHA RAM Allergies and Home Medications Allergies Coded Allergies: codeine (Verified Allergy, Unknown, 09/04/17) Home Medications Acetaminophen 500 Mg Tablet, 1,000 MG PO Q6H PRN for PAIN-MILD, (Reported) Amitriptyline HCl 25 Mg Tablet, 25 MG PO HS, (Reported) Amlodipine Besylate 5 Mg Tablet, 5 MG PO DAILY, (Reported) Calcium Carbonate 300 Mg Tab.chew, 300 MG PO TID PRN for HEARTBURN, (Reported) Carbidopa/Levodopa 1 Each Tablet, 1 TAB PO 0830,1330,1830, (Reported) Furosemide 40 Mg Tablet, 40 MG PO DAILY, (Reported) Hydrocodone/Acetaminophen 1 Each Tablet, 0.5 TAB PO HS PRN for PAIN-MODERATE, (Reported) Losartan Potassium 100 Mg Tablet, 100 MG PO DAILY, (Reported) Metoprolol Succinate 50 Mg Tab.er.24h, 50 MG PO DAILY, (Reported) Ondansetron HCl 4 Mg Tab, 4 MG PO TID PRN for NAUSEA/VOMITING-1ST LINE, (Reported) Promethazine HCl 25 Mg Tablet, 25 MG PO TID PRN for NAUSEA/VOMITING-2ND LINE, (Reported) Quetiapine Fumarate 25 Mg Tablet, 12.5 MG PO HS PRN for HALLUCINATIONS, (Reported) TAKES 1/2 (25MG) TABLET Simvastatin 20 Mg Tablet, 20 MG PO HS, (Reported) Patient Home Medication List Home Medication List Reviewed: Yes Review of Systems Review of Systems Constitutional: no symptoms reported, weight loss (LOST 20 LBS SINCE 01/2016--GRADUAL LOSS, GENERAL DECREASE IN APPETITE) EENTM: no symptoms reported Respiratory: no symptoms reported Cardiovascular: no symptoms reported Gastrointestinal: no symptoms reported Genitourinary: no symptoms reported Musculoskeletal: see HPI Skin: no symptoms reported Psychiatric/Neurological: See HPI; Denies Headache Hematologic/Lymphatic: No Symptoms Reported Immunological/Allergic: no symptoms reported Past Gffbzjx-Naklkz-Tnndiq Hx Patient Social History Alcohol Use: Rarely Uses Recreational Drug Use: No Smoking Status: Never a Smoker Recent Foreign Travel: No Contact w/Someone Who Travel: No Recent Hopitalizations: Yes (PNEUMONIA) Immunizations Up To Date Date of Pneumonia Vaccine: Jan 08, 2017 Date of Influenza Vaccine: Nov 28, 2017 Seasonal Allergies Seasonal Allergies: No Past Medical History Surgeries: Yes (BILATERAL CARPAL TUNNEL; LUMBAR SPINE SURGERY; CARDIAC CATH 06/19/18--NO INTERVENTION; EGD/COLONOSCOPY) Cardiac, Hysterectomy, Oophorectomy, Orthopedic, Tonsillectomy Respiratory: Yes Pneumonia Cardiac: Yes (CARDIAC CATH 06/19/18--MILD DISEASE, NO INTERVENTION; LAFB) Coronary Artery Disease, High Cholesterol, Hypertension Neurological: Yes Parkinson's Disease 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 0.0oz. 64.346090td; 25.3 BMI Method:Estimated General Appearance: No Apparent Distress, WD/WN, Other (VERY FLAT AFFECT/MINIMAL FACIAL MOVEMENT; SPEECH SOMEWHAT DIFFICULT TO UNDERSTAND--VOICE VERY QUIET, TALKS AT LENGTH, BUT SPEECH SOMEWHAT MUMBLED-BARELY OPENS MOUTH WHEN TALKING) HEENT: PERRL/EOMI Neck: Full Range of Motion, Normal Inspection, Non Tender, Supple Respiratory: Chest Non Tender, Normal Breath Sounds, No Accessory Muscle Use, No Respiratory Distress Cardiovascular: Regular Rate, Rhythm, No Edema, No JVD, No Murmur, Normal Peripheral Pulses Gastrointestinal: Non Tender, Soft Extremity: Normal Capillary Refill, Normal Inspection, Normal Range of Motion, Non Tender, No Calf Tenderness, No Pedal Edema Neurologic/Psychiatric: Alert, Oriented x3, performance test consultant II-XII Norm as Tested, Other (GENERALIZED WEAKNESS, SOMEWHAT LETHARGIC, BUT DOES SEEM TO BE SLIGHTLY WEAKER ON LEFT THAN RIGHT, BUT DOES HAVE FULL ROM OF ALL EXTREMITIES; PT APPEARS TO BE LETHARGIC/GENERALLY WEAK) Skin: Normal Color, Warm/Dry, Other (NO EXTERNAL EVIDENCE OF TRAUMA) Focused Exam Lactate Level 09/20/18 22:02: Lactic Acid Level 0.76 Progress/Results/Core Measures Suspected Sepsis SIRS Temperature: Pulse: Respiratory Rate: Laboratory Tests 09/20/18 22:02: White Blood Count 4.6 Blood Pressure / Mean: 09/20/18 22:02: Lactic Acid Level 0.76 Laboratory Tests 09/20/18 22:02: Creatinine 0.84, INR Comment 1.0, Platelet Count 190, Total Bilirubin 0.9 Results/Orders Lab Results Laboratory Tests Test 09/20/18 21:57 09/20/18 22:02 Range/Units Urine Color YELLOW Urine Clarity CLEAR Urine pH 7 5-9 Urine Specific [place] 1.015 L 1.016-1.022 Urine Protein 1+ H NEGATIVE Urine Glucose (UA) NEGATIVE NEGATIVE Urine Ketones NEGATIVE NEGATIVE Urine Nitrite POSITIVE H NEGATIVE Urine Bilirubin NEGATIVE NEGATIVE Urine Urobilinogen NORMAL NORMAL MG/DL Urine Leukocyte Esterase 3+ H NEGATIVE Urine RBC (Auto) 2+ H NEGATIVE Urine RBC NONE /HPF Urine WBC 10-25 H /HPF Urine Crystals NONE /LPF Urine Amorphous Sediment MOD HCAD URATES H /LPF Urine Bacteria LARGE H /HPF Urine Casts NONE /LPF Urine Mucus MODERATE H /LPF Urine Culture Indicated CULTURE PENDING White Blood Count 4.6 4.3-11.0 10^3/uL Red Blood Count 4.00 L 4.35-5.85 10^6/uL Hemoglobin 12.1 11.5-16.0 G/DL Hematocrit 36 35-52 % Mean Corpuscular Volume 90 80-99 FL Mean Corpuscular Hemoglobin 30 25-34 PG Mean Corpuscular Hemoglobin Concent 34 32-36 G/DL Red Cell Distribution Width 12.7 10.0-14.5 % Platelet Count 190 130-400 10^3/uL Mean Platelet Volume 10.0 7.4-10.4 FL Neutrophils (%) (Auto) 58 42-75 % Lymphocytes (%) (Auto) 28 12-44 % Monocytes (%) (Auto) 12 0-12 % Eosinophils (%) (Auto) 2 0-10 % Basophils (%) (Auto) 0 0-10 % Neutrophils # (Auto) 2.7 1.8-7.8 X 10^3 Lymphocytes # (Auto) 1.3 1.0-4.0 X 10^3 Monocytes # (Auto) 0.6 0.0-1.0 X 10^3 Eosinophils # (Auto) 0.1 0.0-0.3 10^3/uL Basophils # (Auto) 0.0 0.0-0.1 10^3/uL Prothrombin Time 13.5 12.2-14.7 SEC INR Comment 1.0 0.8-1.4 Activated Partial Thromboplast Time 32 24-35 SEC Sodium Level 142 135-145 MMOL/L Potassium Level 4.2 3.6-5.0 MMOL/L Chloride Level 106 98-107 MMOL/L Carbon Dioxide Level 26 21-32 MMOL/L Anion Gap 10 5-14 MMOL/L Blood Urea Nitrogen 21 H 7-18 MG/DL Creatinine 0.84 0.60-1.30 MG/DL Estimat Glomerular Filtration Rate > 60 BUN/Creatinine Ratio 25 Glucose Level 100 70-105 MG/DL Lactic Acid Level 0.76 0.50-2.00 MMOL/L Calcium Level 9.5 8.5-10.1 MG/DL Corrected Calcium 9.4 8.5-10.1 MG/DL Magnesium Level 2.4 1.8-2.4 MG/DL Total Bilirubin 0.9 0.1-1.0 MG/DL Aspartate Amino Transf (AST/SGOT) 15 5-34 U/L Alanine Aminotransferase (ALT/SGPT) < 6 0-55 U/L Alkaline Phosphatase 76 40-136 U/L Total Protein 6.4 6.4-8.2 GM/DL Albumin 4.1 3.2-4.5 GM/DL My Orders Orders - DILCIA STONE DO Ed Iv/Invasive Line Start (09/20/18 21:37) Ekg Tracing (09/20/18 21:37) Catheter(Urinary) Insert & Ass ,15 (09/20/18 21:37) Monitor-Rhythm Ecg Trace Only (09/20/18 21:37) Ct Head/Cervical Spine Wo (09/20/18 21:37) Ct Thoracic/Lumbar Spine Wo (09/20/18 21:37) Chest 1 View, Ap/Pa Only (09/20/18 21:37) Pelvis (09/20/18 21:37) Cbc With Automated Diff (09/20/18 21:37) Comprehensive Metabolic Panel (09/20/18 21:37) Lactic Acid Analyzer (09/20/18 21:37) Magnesium (09/20/18 21:37) Protime With Inr (09/20/18 21:37) Partial Thromboplastin Time (09/20/18 21:37) Ua Culture If Indicated (09/20/18 21:37) Blood Culture (09/20/18 21:37) Ed Iv/Invasive Line Start (7/26/19 21:37) Lactated Ringers (Lr 1000 Ml Iv Solution (09/20/18 21:37) Urine Culture (09/20/18 21:37) Vital Signs Adult Sepsis Patie Q15M (09/20/18 21:37) Remove Rings In Anticipation O (09/20/18 21:37) Ceftriaxone For Iv Use (Rocephin For I (09/20/18 22:45) Medications Given in ED Current Medications Medications Dose Ordered Sig/Piter Route Start Time Stop Time Status Last Admin Dose Admin Ceftriaxone Sodium 1000 mg/ Sterile Water 10 ml @ 200 mls/hr ONCE ONCE IV 09/20/18 22:45 09/20/18 22:47 DC 09/20/18 23:24 200 MLS/HR Lactated Ringer's 1,000 ml @ 0 mls/hr Q0M ONCE IV 09/20/18 21:37 09/20/18 21:41 DC 09/20/18 22:10 0 MLS/HR Vital Signs/I&O 09/20/18 09/21/18 21:30 02:50 Temp 99.2 97.6 Pulse 74 69 Resp 16 15 B/P (MAP) 165/83 (110) 153/92 (112) Pulse Ox 98 98 O2 Delivery Room Air Room Air 09/21/18 00:00 Intake Total 10 ml Balance 10 ml Capillary Refill : Progress Note : Progress Note NO DETERIORATION IN PT'S CONDITION DURING ER STAY ECG Initial ECG Impression Date: Sep 20, 2018 Initial ECG Impression Time: 21:45 Initial ECG Rate: 71 Initial ECG Rhythm: Normal Sinus Diagnostic Imaging Comments CXR--NO ACUTE PROCESS PELVIS XRAY--NO ACUTE PROCESS PENDING RADIOLOGIST REVIEW CT HEAD/CERVICAL SPINE---2.9 X 2 CM HETEROGENEOUS MASS WITHIN RIGHT UPPER BASAL GANGLIA/SHEA RADIATA WITH LOCALIZED MASS EFFECT AND MILS ASSOCIATED EDEMA. 1-2 MM MIDLINE SHIFT FROM RIGHT TO LEFT. NO HYDROCEPHALUS OR EVIDENCE OF LARGE TERRITORY INFARCT. NO CERVICAL SPINE FRACTURE OR MALALIGNMENT. SMALL LUCENT APPEARING LESIONS NOTED ON CERVICAL SPINE--PER [facility] VIA FAX AT 0011 SPOKE WITH RADIOLOGIST AT 0018--HE STATES FINDINGS ARE SUSPICIOUS FOR METASTATIC DISEASE OR POSSIBLY GLIOMA, AND CHANGES IN CERVICAL SPINE ARE ALSO SUSPICIOUS FOR METASTATIC DISEASE. CT THORACIC/LUMBAR SPINE--DEGENERATIVE AND POST OP CHANGES, SCOLIOSIS, NO ACUTE FRACTURE OR MAL ALIGNMENT--PER [facility] VIA FAX AT 0032, AND VIA PHONE FROM RADIOLOGIST AT 0018 Reviewed: Reviewed by Me, Discussed w/Radiologist Departure Communication (Admissions) 0040--CALLED LATESHA DIRECT CALL--MESSAGE LEFT ON MACHINE--PT PREFERENCE. 0118--CALLED LATESHA BACK, PAGING HOSPITALIST 0125--SPOKE WITH DR. TORRES, ACCEPTS PT FOR ADMIT/TRANSFER. Impression Primary Impression: Brain mass Additional Impressions: GENRALIZED WEAKNESS, WITH GREATER LEFT SIDED WEAKNESS Parkinsons disease Multiple falls UTI (urinary tract infection) Disposition: XFER SHT-TRM HOSP Condition: Stable Transfer Transfer Facility: [place], [place] Method of Transfer: EMS Departure-Patient Inst. Referrals: FILEMON PERALTA DO (PCP/Family) Primary Care Physician DILCIA STONE DO Sep 20, 2018 22:00
[2018-09-20 22:07] LABS: BILIRUBIN,URINE NEGATIVE (NEGATIVE); CLARITY,URINE CLEAR; COLOR,URINE YELLOW; GLUCOSE, URINE (UA) NEGATIVE (NEGATIVE); KETONES,URINE NEGATIVE (NEGATIVE); LEUKOCYTE ESTERASE ,URINE 3+ (NEGATIVE); NITRITE,URINE POSITIVE (NEGATIVE); PH,URINE 7 (5-9); PROTEIN,URINE 1+ (NEGATIVE); UROBILINOGEN,URINE NORMAL (NORMAL)
[2018-09-20 22:11] LABS: BASOPHILS % (AUTO) 0 % (0-10); EOSINOPHILS # (AUTO) 0.1 10^3/uL (0.0-0.3); EOSINOPHILS % (AUTO) 2 % (0-10); HEMATOCRIT 36 % (35-52); HEMOGLOBIN 12.1 G/DL (11.5-16.0); LYMPHOCYTES # (AUTO) 1.3 X 10^3 (1.0-4.0); LYMPHOCYTES % (AUTO) 28 % (12-44); MEAN CORPUSCULAR HEMOGLOBIN 30 PG (25-34); MEAN CORPUSCULAR HGB CONC 34 G/DL (32-36); MEAN CORPUSCULAR VOLUME 90 FL (80-99); MONOCYTES # (AUTO) 0.6 X 10^3 (0.0-1.0); MONOCYTES % (AUTO) 12 % (0-12); NEUTROPHILS # (AUTO) 2.7 X 10^3 (1.8-7.8); NEUTROPHILS % (AUTO) 58 % (42-75); PLATELET COUNT 190 10^3/uL (130-400); RED CELL DISTRIBUTION WIDTH 12.7 % (10.0-14.5); WHITE BLOOD COUNT 4.6 10^3/uL (4.3-11.0)
[2018-09-20 22:23] LABS: PROTHROMBIN TIME PATIENT 13.5 SEC (12.2-14.7)
[2018-09-20 22:29] LABS: BACTERIA,URINE LARGE /HPF
[2018-09-20 22:30] LABS: AMORPHOUS SEDIMENT,UR MOD AMOR URATES /LPF
[2018-09-20 22:31] LABS: ALANINE AMINOTRANSFERASE < 6 U/L (0-55); ALBUMIN 4.1 GM/DL (3.2-4.5); ALKALINE PHOSPHATASE 76 U/L (40-136); BILIRUBIN,TOTAL 0.9 MG/DL (0.1-1.0); BUN/CREATININE RATIO 25; CALCIUM 9.5 MG/DL (8.5-10.1); CARBON DIOXIDE 26 MMOL/L (21-32); CHLORIDE 106 MMOL/L (98-107); CREATININE SERUM 0.84 MG/DL (0.60-1.30); GFR ESTIMATED > 60; GLUCOSE 100 MG/DL (70-105); MAGNESIUM 2.4 MG/DL (1.8-2.4); POTASSIUM 4.2 MMOL/L (3.6-5.0); SODIUM 142 MMOL/L (135-145); TOTAL PROTEIN 6.4 GM/DL (6.4-8.2)
[2018-09-20] MEDS ORDERED: cefTRIAXone FOR IV USE 1,000 MG in WATER (STERILE) FOR INJECTION 10 ML IV ONE (22:45)
[2018-09-21 02:50] VITALS: BP 153/92
--- NOTE | 2018-09-21 08:17 | Diagnostic Imaging Report ---
PROCEDURE: CT thoracic and lumbar spine without contrast. TECHNIQUE: Multiple contiguous axial images were obtained through the thoracic and lumbar spine without the use of intravenous contrast. Sagittal and coronal reformations were then performed. INDICATION: Weakness. Dizziness. Back pain. COMPARISON: MRI lumbar spine without contrast 08/16/2018. FINDINGS: Marked left apex thoracolumbar curvature centered at L2. Moderate diffuse degenerative endplate changes are more advanced at T12-L2. Postoperative findings of bilateral domitila and pedicle screw fixation with laminectomies at L4-S1 and interbody fusion at L5-S1. There are subtle lucencies about the S1 pedicle screws which could represent early loosening. The spinal canal appears decompressed well at the postoperative levels. No evidence of high-grade spinal canal narrowing on this noncontrast exam. Moderate degenerative changes in the sacroiliac joints. No fractures. Moderate atherosclerotic calcifications. No acute findings in the visualized chest, abdomen or pelvis. IMPRESSION: 1. Advanced left apex thoracolumbar curvature centered at L2. 2. Bilateral pedicle screw fixation with laminectomies at L4-S1. Possible early loosening of the S1 pedicle screws. 3. No acute CT findings in the thoracic or lumbar spine. Dictated by: Dictated on workstation # [id number]
--- NOTE | 2018-09-21 08:24 | Diagnostic Imaging Report ---
EXAM: CHEST 1 VIEW, AP/PA ONLY INDICATION: Weakness. Dizziness. Pain. COMPARISON: Chest radiograph 06/19/2018. FINDINGS: Normal heart size and pulmonary vascularity. No dense consolidation, pleural effusion or pneumothorax. No acute osseous findings. Moderate left apex thoracolumbar scoliosis. Partially visualized postoperative changes in the lumbar spine. IMPRESSION: No acute cardiopulmonary findings. Dictated by: Dictated on workstation # [id number]
--- NOTE | 2018-09-21 08:54 | Diagnostic Imaging Report ---
EXAMINATION: AP pelvis INDICATION: Pelvic pain. FINDINGS: There is a marked rotatory levoscoliosis of the lumbar spine and there has been prior L4-S1 fusion. There are wkhu-rz-aaiayjxg arthritic changes present within the hips. There is no evidence to suggest a proximal femoral fracture. There is no pelvic diastases. The pelvic ring appears intact. IMPRESSION: 1. No evidence of acute pelvic fracture or hip dislocation. 2. Bilateral hip osteoarthritic changes. 3. Rotatory lumbar levoscoliosis with prior spinal fusion. Dictated by: Dictated on workstation # [id number]
--- NOTE | 2018-09-21 09:06 | Diagnostic Imaging Report ---
PROCEDURE: CT head and CT cervical spine without contrast. TECHNIQUE: Multiple contiguous axial images were obtained through the brain and cervical spine without the use of intravenous contrast. Sagittal and coronal reformations through the cervical spine were then performed. Auto Exposure Controls were utilized during the CT exam to meet ALARA standards for radiation dose reduction. INDICATION: Dizziness and weakness. Neck pain. No comparison available FINDINGS: There is a 2.9 x 2.0 cm heterogeneous mass in the right basal ganglia/smith radiata. This has localized mass effect with some mass effect on the right lateral ventricle and approximate 2 mm of kzxhe-qh-kyrb midline shift. By CT imaging this appears to be an isolated lesion. No other mass or evidence of vasogenic edema evident. The mass may have some intralesional blood products given its density. There are no findings of other intracranial hemorrhage. There is no extra-axial collection. There is no hydrocephalus. Calvarium unremarkable. The mastoids and the middle ears appear clear. Paranasal sinuses appear clear. Cervical spine demonstrates multilevel cervical degenerative endplate changes and facet arthropathy. There is normal alignment of the craniocervical junction. The facets are normally aligned. There is no facet joint or disc space widening. There are no findings of an acute cervical spine fracture. There is no evidence to suggest high-grade canal stenosis. Lung apices clear. Soft tissues of the neck demonstrate probable thyroid nodule and are otherwise unremarkable. IMPRESSION: 1. 2.9 x 2.0 cm lesion within the right basal ganglia and smith radiata. This appears to be reflective of a mass. This appears isolated. Considerations would include primary brain tumor or isolated metastatic lesion. If the patient has no clinical contraindication consider further assessment with contrast-enhanced MRI. The mass does result in some local mass effect with mass effect on the lateral ventricle and approximately 2 mm of zhmrh-ee-ajqw midline shift. 2. Cervical degenerative disc disease and facet arthropathy without acute cervical spine fracture or suspicious osseous lesion. 3. I agree with the preliminary [facility] report. Dictated by: Dictated on workstation # [id number]
== END 2018-09-21 02:50 | disposition short-term general hospital (02) ==
LOC: EDUNIT# 21:16 → ER 21:17
DX: G93.89 Other specified disorders of brain (principal); G20 Parkinson's disease; N39.0 Urinary tract infection, site not specified; R53.1 Weakness; R29.6 Repeated falls; I10 Essential (primary) hypertension; I25.10 Atherosclerotic heart disease of native coronary artery without angina pectoris; E78.00 Pure hypercholesterolemia, unspecified; K21.9 Gastro-esophageal reflux disease without esophagitis; Z88.5 Allergy status to narcotic agent; Z90.710 Acquired absence of both cervix and uterus; Z95.9 Presence of cardiac and vascular implant and graft, unspecified; Z90.89 Acquired absence of other organs; Z98.890 Other specified postprocedural states
CPT/HCPCS: 36415; 51702; 70450; 71045; 72125; 72128; 72131; 72170; 80053; 81000; 83605; 83735; 85025; 85610; 85730; 87040; 87077; 87088; 87186; 93005; 93041; 96361; 96365